=== PATIENT | male | born 1950 | race Two or more races ===

== ENCOUNTER → 2016-11-15 | Outpatient (REF) | payer MEDICARE, MEDICAID ==
[2016-11-15 12:54] LABS: BASO % 0.4 % (0.0-1.0); EOS # 0.2 K/mm3 (0.0-0.50); LARGE UNSTAINED CELL # 0.1 K/mm3 (0.0-0.4); LARGE UNSTAINED CELL % 1.6 % (0.0-4.0); LYMPH # 1.9 K/mm3 (1.5-4.5); LYMPH % 29.7 % (24.0-44.0); MEAN CORPUSCULAR HEMOGLOBIN 32.7 pg (27.0-33.0); MEAN CORPUSCULAR HGB CONC 34.3 g/dl (32.0-36.5); MEAN CORPUSCULAR VOLUME 95.5 fl (80.0-96.0); MONO # 0.5 K/mm3 (0.0-0.8); MONO % 7.7 % (0.0-5.0); NEUTROPHILS # 3.7 K/mm3 (1.8-7.7); NEUTROPHILS % 57.7 % (36.0-66.0); PLATELET COUNT, AUTOMATED 255 k/mm3 (150-450); WHITE BLOOD COUNT 6.5 K/mm3 (4.0-10.0)
[2016-11-15 12:55] LABS: ALBUMIN 3.7 GM/DL (3.2-5.2); ALBUMIN/GLOBULIN RATIO 1.09 (1.00-1.93); BILIRUBIN,TOTAL 0.4 MG/DL (0.2-1.0); CALCIUM LEVEL 8.3 MG/DL (8.8-10.2); CREATININE FOR GFR 1.31 MG/DL (0.70-1.30); GLOMERULAR FILTRATION RATE 58.3 (>49); POTASSIUM SERUM 4.1 MEQ/L (3.5-5.1); TOTAL PROTEIN 7.1 GM/DL (6.4-8.2)
== END ==
LOC: M SFHCADAM 08:05
PROVIDERS: ATTEND Family Medicine
DX: R61 Generalized hyperhidrosis (principal); E11.69 Type 2 diabetes mellitus with other specified complication

== ENCOUNTER → 2016-11-15 | Outpatient (CLI) | payer MEDICARE, MEDICAID ==
--- NOTE | 2016-11-15 10:13 | REP ---
Chest x-ray: Two views. History: Night sweats. Findings: There is a small linear density in the left base consistent with fibrosis or possibly discoid atelectasis. No infiltrate or mass lesion is seen. Heart is not enlarged. No hilar or mediastinal adenopathy is appreciated. There are degenerative changes in the thoracic spine. Impression: Mild linear fibrosis left base versus plate-like atelectasis. Otherwise no active disease. Signed by Justice Finnegan MD 11/15/2016 02:35 P
== END ==
LOC: M ADAMS 08:14
PROVIDERS: ATTEND Family Medicine
DX: R61 Generalized hyperhidrosis (principal)

== ENCOUNTER → 2016-11-29 | Outpatient (REF) | payer MEDICARE, MEDICAID ==
[2016-11-29 14:03] LABS: FREE T4 0.69 NG/DL (0.76-1.46)
== END ==
LOC: M SFHCADAM 08:09
PROVIDERS: ATTEND Family Medicine
DX: F32.9 Major depressive disorder, single episode, unspecified (principal)

== ENCOUNTER → 2016-12-21 | Outpatient (CLI) | payer MEDICARE, MEDICAID ==
--- NOTE | 2016-12-21 11:04 | REP ---
Renal ultrasound: The kidneys are normal size. The right kidney measures 12.8 x 5.9 x 7.0 cm. Left kidney measures 11.7 x 5.2 x 6.4 cm. There is no hydronephrosis on the right on the left. There is a 5.6 cm right renal upper pole cyst and a 4.1 cm right renal lower pole cyst. There are no calculi are masses on the right on the left. There are no left to cysts. Impression: Right renal cysts. Otherwise, negative renal ultrasound. Bladder ultrasound: The pre void bladder volume is 1370 ml millimeters. The postvoid bladder volume is 1139 ml. The postvoid residual is 83%. There is bladder wall trabeculation. There is a bladder diverticulum superiorly. Signed by Willian Gutierrez MD 12/21/2016 10:56 A
== END ==
LOC: M RAD 08:58
PROVIDERS: ATTEND Internal Medicine Nephrology
DX: N18.3 Chronic kidney disease, stage 3 (moderate) (principal)

== ENCOUNTER → 2016-12-24 | Outpatient (REF) | payer MEDICARE, MEDICAID ==
[2016-12-24 13:26] LABS: BASO % 0.4 % (0.0-1.0); EOS # 0.2 10^3/uL (0.0-0.50); EOS % 2.8 % (0.0-3.0); IMMATURE GRANULOCYTE % 0.8 % (0-0); LYMPH # 2.3 10^3/uL (1.5-4.5); MEAN CORPUSCULAR HEMOGLOBIN 31.5 pg (27.0-33.0); MEAN CORPUSCULAR HGB CONC 33.3 g/dl (32.0-36.5); MEAN CORPUSCULAR VOLUME 94.7 fl (80.0-96.0); MONO # 0.6 10^3/uL (0.0-0.8); MONO % 7.4 % (0.0-5.0); NEUTROPHILS # 4.4 10^3/uL (1.8-7.7); NEUTROPHILS % 58.6 % (36.0-66.0); PLATELET COUNT, AUTOMATED 211 10^3/uL (150-450); RED CELL DISTRIBUTION WIDTH 13.6 % (11.5-14.5); WHITE BLOOD COUNT 7.5 10^3/uL (4.0-10.0)
[2016-12-24 13:27] LABS: ALBUMIN 3.6 GM/DL (3.2-5.2); ALBUMIN/GLOBULIN RATIO 1.13 (1.00-1.93); BILIRUBIN,TOTAL 0.4 MG/DL (0.2-1.0); CALCIUM LEVEL 8.6 MG/DL (8.8-10.2); CREATININE FOR GFR 1.28 MG/DL (0.70-1.30); GLOMERULAR FILTRATION RATE 59.9 (>49); POTASSIUM SERUM 4.2 MEQ/L (3.5-5.1); TOTAL PROTEIN 6.8 GM/DL (6.4-8.2)
[2016-12-24 13:32] LABS: ADD MANUAL DIFFER NO; DIFF SLIDE NUMBER 218
== END ==
LOC: M LABDRWAD 12:14
PROVIDERS: ATTEND Psychiatry & Neurology Neurology
DX: R56.9 Unspecified convulsions (principal); E29.1 Testicular hypofunction; Z12.5 Encounter for screening for malignant neoplasm of prostate; R33.9 Retention of urine, unspecified; N32.3 Diverticulum of bladder; Z79.899 Other long term (current) drug therapy

== ENCOUNTER → 2016-12-25 | Outpatient (REF) | payer MEDICARE, MEDICAID | LOC: M LABSMT 07:46 | PROVIDERS: ATTEND Nurse Practitioner Women's Health | DX: Z12.5 Encounter for screening for malignant neoplasm of prostate (principal); E29.1 Testicular hypofunction | CPT/HCPCS: 84402; 84403; G0103 ==

== ENCOUNTER → 2017-01-11 | Outpatient (REF) | payer MEDICARE, MEDICAID | LOC: M SMT 13:07 | PROVIDERS: ATTEND Nurse Practitioner Women's Health | DX: R33.9 Retention of urine, unspecified (principal); E29.1 Testicular hypofunction; R97.20 Elevated prostate specific antigen [PSA] ==

== ENCOUNTER → 2017-01-14 | Outpatient (REF) | payer MEDICARE, MEDICAID ==
[2017-01-14 20:25] LABS: BASO % 0.3 % (0.0-1.0); EOS # 0.3 10^3/uL (0.0-0.50); EOS % 2.5 % (0.0-3.0); IMMATURE GRANULOCYTE % 0.8 % (0-0); LYMPH # 2.6 10^3/uL (1.5-4.5); LYMPH % 22.7 % (24.0-44.0); MEAN CORPUSCULAR HEMOGLOBIN 31.6 pg (27.0-33.0); MEAN CORPUSCULAR HGB CONC 32.6 g/dl (32.0-36.5); MONO # 0.9 10^3/uL (0.0-0.8); MONO % 7.4 % (0.0-5.0); NEUTROPHILS # 7.6 10^3/uL (1.8-7.7); NEUTROPHILS % 66.3 % (36.0-66.0); PLATELET COUNT, AUTOMATED 327 10^3/uL (150-450); RED CELL DISTRIBUTION WIDTH 12.7 % (11.5-14.5); WHITE BLOOD COUNT 11.4 10^3/uL (4.0-10.0)
== END ==
LOC: M SFHCADAM 09:31 → M LAB REF 09:31
PROVIDERS: ATTEND Family Medicine
DX: K62.5 Hemorrhage of anus and rectum (principal); F31.9 Bipolar disorder, unspecified; G31.84 Mild cognitive impairment of uncertain or unknown etiology
CPT/HCPCS: 85025; 90832; G0463

== ENCOUNTER → 2017-01-15 | Outpatient (REF) | payer MEDICARE, MEDICAID | LOC: M SMT 16:50 | PROVIDERS: ATTEND Urology | DX: R97.20 Elevated prostate specific antigen [PSA] (principal); R33.9 Retention of urine, unspecified ==

== ENCOUNTER → 2017-01-29 | Outpatient (REF) | payer MEDICARE, MEDICAID | LOC: M SMT 14:27 | PROVIDERS: ATTEND Urology | DX: N39.0 Urinary tract infection, site not specified (principal) ==

== ENCOUNTER → 2017-03-01 | Outpatient (REF) | payer MEDICARE, MEDICAID | LOC: M SMT 19:18 | PROVIDERS: ATTEND Urology | DX: R97.20 Elevated prostate specific antigen [PSA] (principal) ==

== ENCOUNTER → 2017-03-01 | Outpatient (REF) | payer MEDICARE, MEDICAID | LOC: M SFHCADAM 08:41 | PROVIDERS: ATTEND Family Medicine | DX: E11.69 Type 2 diabetes mellitus with other specified complication (principal) ==

== ENCOUNTER → 2017-03-15 | Outpatient (REF) | payer MEDICARE, MEDICAID ==
[2017-03-15 20:05] LABS: ESTIMATED AVERAGE GLUCOSE 163 MG/DL (60-110)
== END ==
LOC: M SFHCADAM 17:05
DX: E11.69 Type 2 diabetes mellitus with other specified complication (principal)
CPT/HCPCS: 83036

== ENCOUNTER 2017-04-19 20:51 | Emergency (ER) | payer MEDICARE, MEDICAID | END 2017-04-19 23:45 | disposition home or self-care (01) | LOC: M ED 20:51 | DX: M25.552 Pain in left hip (principal); X50.1XXA Overexertion from prolonged static or awkward postures, initial encounter; Y92.099 Unspecified place in other non-institutional residence as the place of occurrence of the external cause; Y93.9 Activity, unspecified; E11.9 Type 2 diabetes mellitus without complications; I10 Essential (primary) hypertension; E78.00 Pure hypercholesterolemia, unspecified; Z79.899 Other long term (current) drug therapy; Z88.8 Allergy status to other drugs, medicaments and biological substances; Z88.0 Allergy status to penicillin; Z88.1 Allergy status to other antibiotic agents | CPT/HCPCS: 73502 ==

== ENCOUNTER → 2017-05-21 | Outpatient (REF) | payer MEDICARE, MEDICAID ==
[2017-05-23 14:14] LABS: PSA TOTAL 2.2 ng/mL (0.0-4.0)
== END ==
LOC: M LABDRWAD 13:30
DX: R97.20 Elevated prostate specific antigen [PSA] (principal)
CPT/HCPCS: 84154

== ENCOUNTER → 2017-06-07 | Outpatient (REF) | payer MEDICARE, MEDICAID ==
[2017-06-07 19:47] LABS: ALBUMIN 3.7 GM/DL (3.2-5.2); ALKALINE PHOSPHATASE 84 U/L (45-117); ALT/SGPT 43 U/L (12-78); ANION GAP 5 MEQ/L (8-16); AST/SGOT 24 U/L (7-37); BILIRUBIN,TOTAL 0.4 MG/DL (0.2-1.0); BLOOD UREA NITROGEN 29 MG/DL (7-18); CARBON DIOXIDE LEVEL 32 MEQ/L (21-32); CHLORIDE LEVEL 102 MEQ/L (98-107); CREATININE FOR GFR 1.21 MG/DL (0.70-1.30); GLOMERULAR FILTRATION RATE > 60.0 (>49); GLUCOSE, FASTING 89 MG/DL (70-100); POTASSIUM SERUM 4.4 MEQ/L (3.5-5.1); SODIUM LEVEL 139 MEQ/L (136-145); TOTAL PROTEIN 7.4 GM/DL (6.4-8.2)
[2017-06-07 19:49] LABS: ESTIMATED AVERAGE GLUCOSE 146 MG/DL (60-110); HEMOGLOBIN A1c 6.7 %
[2017-06-07 20:08] LABS: MALB URINE SIEMENS 18.2 MG/L; MAU/CREAT RATIO 12.2 MCG/MG (0.0-30.0)
== END ==
LOC: M SFHCADAM 11:51
DX: E11.69 Type 2 diabetes mellitus with other specified complication (principal); R80.9 Proteinuria, unspecified
CPT/HCPCS: 80053

== ENCOUNTER → 2017-08-02 | Outpatient (REF) | payer MEDICARE, MEDICAID ==
[2017-08-02 13:40] LABS: ESTIMATED AVERAGE GLUCOSE 148 MG/DL (60-110); HEMOGLOBIN A1c 6.8 %
== END ==
LOC: M SFHCADAM 07:58
DX: E11.69 Type 2 diabetes mellitus with other specified complication (principal)
CPT/HCPCS: 83036

== ENCOUNTER → 2017-11-25 | Outpatient (REF) | payer MEDICARE, MEDICAID ==
[2017-11-25 13:46] LABS: APPEARANCE, URINE CLEAR (CLEAR); BACTERIA, URINE AUTO NEGATIVE (NEGATIVE); BILIRUBIN, URINE AUTO NEGATIVE (NEGATIVE); BLOOD, URINE BLOOD NEGATIVE (NEGATIVE); COLOR, URINE YELLOW (YELLOW); GLUCOSE, URINE (UA) AUTO NEGATIVE (NEGATIVE); KETONE, URINE AUTO NEGATIVE (NEGATIVE); LEUKOCYTE ESTERASE, URINE AUTO TRACE (NEGATIVE); MUCUS, URINE SMALL (NEGATIVE); NITRITE, URINE AUTO NEGATIVE (NEGATIVE); PROTEIN, URINE AUTO NEGATIVE (NEGATIVE); RBC, URINE AUTO 1 /HPF (0-3); SPECIFIC GRAVITY URINE AUTO 1.018 (1.002-1.035); SQUAMOUS EPITHELIAL CELL UR AU 0 /HPF (0-6); UROBILINOGEN, URINE AUTO 0.2 mg/dL (0.0-2.0); WBC, URINE AUTO 2 /HPF (0-3)
== END ==
LOC: M SMT 13:07
DX: R33.9 Retention of urine, unspecified (principal)
CPT/HCPCS: 81001

== ENCOUNTER → 2018-02-03 | Outpatient (REF) | payer MEDICARE, MEDICAID ==
[2018-02-03 20:11] LABS: ESTIMATED AVERAGE GLUCOSE 163 MG/DL (60-110); HEMOGLOBIN A1c 7.3 %
== END ==
LOC: M SFHCADAM 12:55
DX: E11.69 Type 2 diabetes mellitus with other specified complication (principal); Z23 Encounter for immunization
CPT/HCPCS: 83036

== ENCOUNTER 2018-02-16 03:18 | Inpatient (IN) | payer MEDICARE, MEDICAID ==
[2018-02-16 04:23] LABS: BASO % 0.4 % (0.0-1.0); EOS # 0.2 10^3/uL (0.0-0.50); EOS % 2.6 % (0.0-3.0); HEMATOCRIT 38.5 % (42.0-52.0); IMMATURE GRANULOCYTE % 0.9 % (0-3.0); LYMPH # 3.1 10^3/uL (1.5-4.5); MEAN CORPUSCULAR HEMOGLOBIN 31.6 pg (27.0-33.0); MEAN CORPUSCULAR HGB CONC 33.8 g/dl (32.0-36.5); MEAN CORPUSCULAR VOLUME 93.7 fl (80.0-96.0); MONO # 0.7 10^3/uL (0.0-0.8); MONO % 8.1 % (0.0-5.0); NEUTROPHILS # 4.4 10^3/uL (1.8-7.7); PLATELET COUNT, AUTOMATED 231 10^3/uL (150-450); RED BLOOD COUNT 4.11 10^6/uL (4.30-6.10); RED CELL DISTRIBUTION WIDTH 13.3 % (11.5-14.5); WHITE BLOOD COUNT 8.5 10^3/uL (4.0-10.0)
[2018-02-16 04:52] LABS: ALKALINE PHOSPHATASE 98 U/L (45-117); ALT/SGPT 46 U/L (12-78); AST/SGOT 32 U/L (7-37); BILIRUBIN,DIRECT < 0.1 MG/DL (0.0-0.2); BILIRUBIN,TOTAL 0.2 MG/DL (0.2-1.0); BLOOD UREA NITROGEN 21 MG/DL (7-18); CALCIUM LEVEL 8.4 MG/DL (8.8-10.2); CARBON DIOXIDE LEVEL 27 MEQ/L (21-32); CHLORIDE LEVEL 106 MEQ/L (98-107); CREATININE FOR GFR 1.28 MG/DL (0.70-1.30); GLOMERULAR FILTRATION RATE 59.5 (>49); GLUCOSE, FASTING 168 MG/DL (70-100); POTASSIUM SERUM 4.5 MEQ/L (3.5-5.1); SODIUM LEVEL 141 MEQ/L (136-145); TOTAL PROTEIN 6.8 GM/DL (6.4-8.2)
[2018-02-16 04:53] LABS: ALBUMIN 3.3 GM/DL (3.2-5.2); ALBUMIN/GLOBULIN RATIO 0.94 (1.00-1.93); ANION GAP 8 MEQ/L (8-16); LIPASE 267 U/L (73-393)
[2018-02-16] MEDS: MORPHINE 4 MG/ML 1ML VIAL/SYRINGE (J2270) IV ×2 (05:31→21:00)
[2018-02-16] MEDS: ONDANSETRON 4MG/2ML VIAL (J2405) IV ×2 (05:31→21:00)
[2018-02-16] MEDS: GASTROGRAFIN SOLUTION 30ML PO ×3 (05:31→06:05)
[2018-02-16] MEDS ORDERED: ISOVUE-370 76% 100ML VIAL (Q9967) As Ordered (07:08)
[2018-02-16 07:53] LABS: KETONE, URINE AUTO RFX NEGATIVE (NEGATIVE); LEUKOCYTE ESTERASE UR AUTO RFX NEGATIVE (NEGATIVE); MUCUS, URINE RFX SMALL (NEGATIVE); NITRITE, URINE AUTO RFX NEGATIVE (NEGATIVE); RBC, URINE AUTO RFX 22 /HPF (0-3); SPECIFIC GRAVITY UR AUTO RFX 1.018 (1.002-1.035); SQUAM EPITHELIAL CELL UR AURFX 1 /HPF (0-6); WBC, URINE AUTO RFX 1 /HPF (0-3)
[2018-02-16 08:39] LABS: CK-MB VALUE MASS < 1.0 NG/ML (<3.6); CPK CREATINE PHOSPHOKINASE 135 U/L (39-308); TROPONIN I < 0.02 NG/ML (< 0.10)
[2018-02-16] MEDS: PANTOPRAZOLE 40MG TAB (PROTONIX) PO (09:00)
[2018-02-16] MEDS: LOSARTAN 50 MG TAB PO (09:00)
[2018-02-16] MEDS ORDERED: ACETAMINOPHEN 500 MG TAB PO (15:45)
[2018-02-16] MEDS: GABAPENTIN 300 MG CAP PO ×2 (16:00→21:11)
[2018-02-16 17:08] LABS: BEDSIDE GLUCOSE 117 MG/DL (80-115)
[2018-02-16] MEDS: HumaLOG INSULIN (NovoLOG) PER UNIT SC ×2 (17:30→21:00)
[2018-02-16] MEDS ORDERED: GLUCAGON FOR INJ 1 MG VIAL (J1610) SC (17:30)
[2018-02-16] MEDS ORDERED: GLUCOSE 4 GM CHEW TABLET PO (17:30)
[2018-02-16] MEDS ORDERED: DEXTROSE 50% 50 ML SYRINGE IV (17:30)
[2018-02-16 17:58] LABS: ERYTHROCYTE SEDIMENTATION RATE 26 mm/hr (0-20)
[2018-02-16] MEDS: NS 1,000 ML IV (18:41)
[2018-02-16 20:02] LABS: BEDSIDE GLUCOSE 154 MG/DL (80-115)
[2018-02-16] MEDS: TAMSULOSIN 0.4 MG CAP PO (21:00)
[2018-02-16] MEDS: QUEtiapine FUMARATE 100 MG TAB PO (21:00)
[2018-02-16] MEDS: DONEPEZIL 5 MG TAB PO (21:00)
[2018-02-16] MEDS: OXcarbazepine 300 MG TAB PO (21:00)
[2018-02-16] MEDS: SIMVASTATIN 20 MG TAB PO (21:11)
[2018-02-16] MEDS: FLUoxetine 20 MG CAP PO (21:14)
[2018-02-16 21:32] LABS: APPEARANCE, URINE CLEAR (CLEAR); BACTERIA, URINE AUTO NEGATIVE (NEGATIVE); BILIRUBIN, URINE AUTO NEGATIVE (NEGATIVE); BLOOD, URINE BLOOD 1+ (NEGATIVE); COLOR, URINE YELLOW (YELLOW); GLUCOSE, URINE (UA) AUTO NEGATIVE (NEGATIVE); KETONE, URINE AUTO NEGATIVE (NEGATIVE); LEUKOCYTE ESTERASE, URINE AUTO NEGATIVE (NEGATIVE); MUCUS, URINE SMALL (NEGATIVE); NITRITE, URINE AUTO NEGATIVE (NEGATIVE); PROTEIN, URINE AUTO NEGATIVE (NEGATIVE); RBC, URINE AUTO 4 /HPF (0-3); SPECIFIC GRAVITY URINE AUTO 1.033 (1.002-1.035); SQUAMOUS EPITHELIAL CELL UR AU 0 /HPF (0-6); UROBILINOGEN, URINE AUTO 0.2 mg/dL (0.0-2.0); WBC, URINE AUTO 1 /HPF (0-3)
[2018-02-17 05:23] LABS: HEMATOCRIT 39.8 % (42.0-52.0); HEMOGLOBIN 13.2 g/dl (13.5-17.5); MEAN CORPUSCULAR HEMOGLOBIN 30.8 pg (27.0-33.0); MEAN CORPUSCULAR HGB CONC 33.2 g/dl (32.0-36.5); PLATELET COUNT, AUTOMATED 207 10^3/uL (150-450); RED BLOOD COUNT 4.28 10^6/uL (4.30-6.10); RED CELL DISTRIBUTION WIDTH 13.2 % (11.5-14.5); WHITE BLOOD COUNT 8.4 10^3/uL (4.0-10.0)
[2018-02-17 05:44] LABS: ALBUMIN 3.6 GM/DL (3.2-5.2); ALBUMIN/GLOBULIN RATIO 1.03 (1.00-1.93); ALKALINE PHOSPHATASE 97 U/L (45-117); ALT/SGPT 35 U/L (12-78); ANION GAP 7 MEQ/L (8-16); AST/SGOT 20 U/L (7-37); BILIRUBIN,TOTAL 0.4 MG/DL (0.2-1.0); BLOOD UREA NITROGEN 20 MG/DL (7-18); CALCIUM LEVEL 8.7 MG/DL (8.8-10.2); CARBON DIOXIDE LEVEL 29 MEQ/L (21-32); CHLORIDE LEVEL 102 MEQ/L (98-107); CREATININE FOR GFR 1.11 MG/DL (0.70-1.30); FERRITIN 281 NG/ML (26-388); GLOMERULAR FILTRATION RATE > 60.0 (>49); GLUCOSE, FASTING 142 MG/DL (70-100); IRON (FE) 62 UG/DL (65-175); PERCENT SATURATION 23.3 % (19.7-50.0); POTASSIUM SERUM 4.2 MEQ/L (3.5-5.1); SODIUM LEVEL 138 MEQ/L (136-145); TOTAL IRON BINDING CAPACITY 266 UG/DL (250-450); TOTAL PROTEIN 7.1 GM/DL (6.4-8.2)
[2018-02-17] MEDS: ONDANSETRON 4MG/2ML VIAL (J2405) IV (08:32)
[2018-02-17] MEDS: HumaLOG INSULIN (NovoLOG) PER UNIT SC ×2 (08:32→12:09)
[2018-02-17] MEDS: GABAPENTIN 300 MG CAP PO ×2 (08:33→15:44)
[2018-02-17] MEDS: PANTOPRAZOLE 40MG TAB (PROTONIX) PO (08:33)
[2018-02-17] MEDS: OXcarbazepine 300 MG TAB PO (08:33)
[2018-02-17] MEDS: ENOXAPARIN 40 MG/0.4 ML SYRINGE (J1650) SC (08:33)
[2018-02-17] MEDS: LOSARTAN 50 MG TAB PO (08:33)
[2018-02-17] MEDS: FLUoxetine 20 MG CAP PO (08:34)
[2018-02-17] MEDS ORDERED: FLUoxetine 20 MG CAP PO (09:00)
[2018-02-17 11:42] LABS: BEDSIDE GLUCOSE 192 MG/DL (80-115)
[2018-02-17 11:53] LABS: VITAMIN B12 LEVEL 635 PG/ML (247-911)
[2018-02-19 14:16] LABS: OXCARBAZEPINE 17 ug/mL (10-35)
== END 2018-02-17 16:02 | disposition home or self-care (01) | DRG 392 ==
LOC: M ED 03:18 → M ED INP 15:37 → M PCU 18:34
DX: A08.0 Rotaviral enteritis (principal); E11.9 Type 2 diabetes mellitus without complications; F41.9 Anxiety disorder, unspecified; F43.10 Post-traumatic stress disorder, unspecified; J45.909 Unspecified asthma, uncomplicated; G40.909 Epilepsy, unspecified, not intractable, without status epilepticus; Z88.0 Allergy status to penicillin; Z88.2 Allergy status to sulfonamides; Z88.8 Allergy status to other drugs, medicaments and biological substances; Z90.79 Acquired absence of other genital organ(s); Z79.899 Other long term (current) drug therapy; R55 Syncope and collapse; K80.20 Calculus of gallbladder without cholecystitis without obstruction; G47.33 Obstructive sleep apnea (adult) (pediatric); I10 Essential (primary) hypertension

== ENCOUNTER → 2018-05-06 | Outpatient (REF) | payer MEDICARE, OTHER ==
[~2018-05-06] MED LIST: AK-T0.3S; ALBU83IN INH; ATIV1TAB10; ATIV1TAB10 PO; CLIN1LOT; DONEPEZIL; DONETAB6 PO; FISH7.5C PO; FLOM0.4C39 PO; FLON1SPR NARES; FLUO20CA19; FLUO20CA8 PO; FLUO40CA; FLUO40CA PO; GABA-843; GABA-843 PO; KETO2SH; LORA-243; LOSA50TA88; LOSA50TA88 PO; MECL-86 PO; MESA50SU PR; NEOM1SUS15 OU; NITR4TASL SL; NIZO2SHA TOP; OMEP40CA2; OMEP40CA2 PO; OXCA300T14; OXCA300T14 PO; PRAM0.126; PREDOPD; PROAAER10 INH; QUET1TAB8; QUET1TAB8 PO; SIMV20TA2; SYMB16INH INH; TRAZ1TAB14; TRAZ1TAB14 PO; TRUL10IN; TRUL10IN SC; TUMS500C PO; TYLE325T5 PO; Tamsulosin; VENTAER INH; XALA0.007 OU; ZOCO20TA PO
[2018-05-06 20:17] LABS: ALBUMIN 3.7 GM/DL (3.2-5.2); ALT/SGPT 35 U/L (12-78); BILIRUBIN,TOTAL 0.4 MG/DL (0.2-1.0); BLOOD UREA NITROGEN 13 MG/DL (7-18); CALCIUM LEVEL 8.6 MG/DL (8.8-10.2); CARBON DIOXIDE LEVEL 24 MEQ/L (21-32); CHLORIDE LEVEL 99 MEQ/L (98-107); CREATININE FOR GFR 1.13 MG/DL (0.70-1.30); GLOMERULAR FILTRATION RATE > 60.0 (>49); GLUCOSE, FASTING 138 MG/DL (70-100); POTASSIUM SERUM 3.9 MEQ/L (3.5-5.1); SODIUM LEVEL 133 MEQ/L (136-145); TOTAL PROTEIN 7.6 GM/DL (6.4-8.2)
[2018-05-06 20:57] LABS: HEMOGLOBIN A1c 8.3 %
[2018-05-08 15:05] LABS: PSA TOTAL 2.5 ng/mL (0.0-4.0)
== END ==
LOC: M SFHCADAM 11:42
PROVIDERS: ATTEND Family Medicine
DX: E11.69 Type 2 diabetes mellitus with other specified complication (principal); R97.20 Elevated prostate specific antigen [PSA]

== ENCOUNTER 2018-05-08 11:33 | Day surgery (SDC) | payer MEDICARE, MEDICAID ==
[~2018-05-08] VITALS: Ht 188 cm; Wt 135.6 kg
[~2018-05-08 11:33] MED LIST changes: +NS 1,000 ML IV SCH
[2018-05-08] MEDS ORDERED: PROPOFOL 200 MG/20 ML VIAL As Ordered ONE ×2 (12:55→12:56)
[2018-05-08] MEDS ORDERED: LIDOCAINE 2% INJ 100 MG/5 ML SDV (FOR ANES.) As Ordered ONE (12:56)
--- NOTE | 2018-05-08 13:44 | ROOR ---
Patient Name: Noah Huerta Procedure Date: 05/08/2018 1:22 PM Date of : 1950 Age: 68 Room: [facility] Gender: Male Note Status: Finalized Procedure: Upper GI endoscopy Indications: Surveillance for malignancy due to personal history of Adan's esophagus Providers: Cesario LAM MD Referring MD: Tiffanie Cohen DO Requesting Provider: Medicines: Monitored Anesthesia Care Complications: No immediate complications. Procedure: Pre-Anesthesia Assessment: - The heart rate, respiratory rate, oxygen saturations, blood pressure, adequacy of pulmonary ventilation, and response to care were monitored throughout the procedure. The Endoscope was introduced through the mouth, and advanced to the second part of duodenum. The upper GI endoscopy was accomplished without difficulty. The patient tolerated the procedure well. Findings: The Z-line was variable and was found 39 cm from the incisors. This was biopsied with a cold forceps for histology. The exam of the esophagus was otherwise normal. Patchy mild inflammation characterized by erythema was found in the gastric antrum. Biopsies were taken with a cold forceps for histology. Multiple small semi-sessile polyps were found in the gastric body. Biopsies were taken with a cold forceps for histology. The examined duodenum was normal. Impression: - Z-line variable with a small nodularity, 39 cm from the incisors. Biopsied. - Probable Atrophic gastritis (or possible mild GAVE). Biopsied. - Multiple gastric polyps/fundic gland polyps. Multiple polyps Biopsied. - Normal examined duodenum. Recommendation: - Await pathology results. - Observe patient's clinical course. - Repeat upper endoscopy for surveillance based on pathology results. - Continue present medications. - Telephone endoscopist for pathology results in 2 weeks. Cesario Lam MD Cesario LAM MD 05/08/2018 1:43:38 PM This report has been signed electronically. Number of Addenda: 0 Note Initiated On: 05/08/2018 1:22 PM Estimated Blood Loss: Estimated blood loss: none.
--- NOTE | 2018-05-08 14:07 | ROOR ---
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 Procedure: Pre-Anesthesia Assessment: - The heart rate, respiratory rate, oxygen saturations, blood pressure, adequacy of pulmonary ventilation, and response to care were monitored throughout the procedure. The Colonoscope was introduced through the anus and advanced to 10 cm into the ileum. The colonoscopy was performed without difficulty. The patient tolerated the procedure well. The quality of the bowel preparation was good. Findings: The perianal and digital rectal examinations were normal. A 8 mm polyp was found in the hepatic flexure. The polyp was semi-sessile. The polyp was removed with a cold snare. Resection and retrieval were complete. Mild sigmoid diverticulosis and moderate internal hemorrhoids. The exam was otherwise without abnormality on direct and retroflexion views. The terminal ileum appeared normal. Impression: - One 8 mm polyp at the hepatic flexure, removed with a cold snare. Resected and retrieved. - Mild sigmoid diverticulosis and moderate internal hemorrhoids. - The colon examination was otherwise normal on direct and retroflexion views. - The examined portion of the ileum was normal. (- I see no evidence of any colitis or proctitis today.) Recommendation: - Repeat colonoscopy in 5 years for surveillance. Cesario Lam MD Cesario LAM MD 05/08/2018 2:06:55 PM This report has been signed electronically. Number of Addenda: 0 Note Initiated On: 05/08/2018 1:24 PM Estimated Blood Loss: Estimated blood loss: none.
[2018-05-08 14:33] VITALS: BP 143/89
== END 2018-05-08 14:48 | disposition home or self-care (01) ==
LOC: M OPP 11:33
PROVIDERS: ATTEND Internal Medicine Gastroenterology
DX: D12.3 Benign neoplasm of transverse colon (principal); K57.30 Diverticulosis of large intestine without perforation or abscess without bleeding; K64.8 Other hemorrhoids; K22.70 Barrett's esophagus without dysplasia; K22.8 Other specified diseases of esophagus; K29.40 Chronic atrophic gastritis without bleeding; K31.7 Polyp of stomach and duodenum; Z86.010 Personal history of colon polyps

== ENCOUNTER → 2018-06-06 | Outpatient (CLI) | payer MEDICARE, MEDICAID ==
[~2018-06-06] MED LIST changes: -KETO2SH; +KETO2SHA9; +NEOM1SUS14 OU; -NEOM1SUS15 OU; -NS 1,000 ML IV SCH
--- NOTE | 2018-06-06 15:47 | REP ---
Left knee five views History: Acute pain There is no acute fracture or dislocation. There is mild narrowing of the medial knee joint space and lateral femoral joint space. Osteophytes are present on the femur, tibia and patella. Impression: Degenerative change as described above. Electronically Signed by Cyrus Simmons MD 06/06/2018 03:39 P
== END ==
LOC: M ADAMS 14:13
PROVIDERS: ATTEND Family Medicine
DX: M17.12 Unilateral primary osteoarthritis, left knee (principal); M25.762 Osteophyte, left knee; M25.562 Pain in left knee
CPT/HCPCS: 73564; G0463

== ENCOUNTER 2018-06-20 08:56 | Day surgery (SDC) | payer MEDICARE, MEDICAID ==
[~2018-06-20] VITALS: Ht 188 cm; Wt 127.0 kg
[~2018-06-20 08:56] MED LIST changes: +GLYCOPYRROLATE INJ 0.2 MG/ML 2 ML VIAL As Ordered ONE; +KETOROLAC 60 MG/2 ML VIAL (J1885) As Ordered ONE; +LIDOCAINE 2% INJ 100 MG/5 ML SDV (FOR ANES.) As Ordered ONE; +MIDAZOLAM INJ 2 MG/2 ML VIAL (J2250) As Ordered ONE; +NEOSTIGMINE 10 MG/10 ML VIAL (J2710) As Ordered ONE; +ONDANSETRON 4MG/2ML VIAL (J2405) As Ordered ONE; +PROPOFOL 200 MG/20 ML VIAL As Ordered ONE; +ROCURONIUM BROMIDE 50 MG/5 ML VIAL As Ordered ONE; +dexameTHASONE 4 MG/ML 1ML VIAL (J1100) As Ordered ONE; +fentaNYL 100 MCG/2 ML INJECTION (J3010) As Ordered ONE
[2018-06-20] MEDS ORDERED: CLINDAMYCIN 600 MG/50 ML PREMIX BAG As Ordered ONE (10:05)
[2018-06-20] MEDS ORDERED: CLINDAMYCIN 600 MG in APPROPRIATE DILUENT 1 EA IV ONE (10:30)
[2018-06-20] MEDS ORDERED: BUPIVACAINE/EPIN 0.25% 30 ML VIAL As Ordered ONE (11:40)
[2018-06-20] MEDS ORDERED: oxyCODONE 5MG TAB PO PRN (14:45)
[2018-06-20] MEDS ORDERED: LR 1,000 ML IV SCH (14:45)
[2018-06-20] MEDS ORDERED: NORCO 5/325MG TABLET (BULK FOR ED) PO PRN (14:45)
[2018-06-20] MEDS ORDERED: ONDANSETRON 4MG/2ML VIAL (J2405) IV PRN (14:45)
[2018-06-20] MEDS: fentaNYL 100 MCG/2 ML INJECTION (J3010) IV PRN ×3 (15:20→15:30)
[2018-06-20 15:54] VITALS: BP 155/79
--- NOTE | 2018-06-20 18:31 | RO ---
DATE OF PROCEDURE: 06/20/2018 PREOPERATIVE DIAGNOSIS: Right inguinal hernia. POSTOPERATIVE DIAGNOSIS: Recurrent right inguinal hernia. PROCEDURE: Robotic repair of a recurrent right inguinal hernia. SURGEON: Dr. Willian West CARBONATION TESTER: Radha Bishop ANESTHESIA: General. ESTIMATED BLOOD LOSS: 5 mL. COMPLICATIONS: None. INDICATION FOR PROCEDURE: The patient is a 68-year-old male who presents with right groin pain and a bulge. He was found to have a right inguinal hernia. Recommendation was to proceed with robotic repair. Risks and benefits of the procedure not limited to but including bleeding, infection, hernia formation, hernia recurrence, damage to surrounding structures, and need for further surgery were discussed in detail with the patient. Informed consent was obtained and procedure was planned. DESCRIPTION OF PROCEDURE: The patient was brought back to operating room seven after sufficient sedation, a Mooney catheter was placed. Next, a time-out was done to confirm proper patient, proper procedure. Next, a stab incision was made in the left lower quadrant, Veress needle was inserted and the abdomen was insufflated to 15 mmHg. An 8 mm incision was then made supraumbilically and an 8 mm Optiview port was used to gain access to the abdomen. The Veress needle site was examined. No sites of any injury. Two more 8 mm robotic ports were placed in left and right midabdomen in line with the umbilical port. The robot was then connected to the ports and targeted to the pelvis. Next, the abdomen was entered with the camera. There were multiple adhesions in the right lower quadrant. These were gently taken down using the robot. In the right groin, there was mesh identified with a loop of colon adhered to it. The colon was gently taken down. Once that was completed, it revealed an indirect defect inferior to the mesh, containing a large amount of fat. This was all carefully reduced. It was right on top of the external iliac artery and vein. I carefully dissected free from those structures. Once the sac was completely reduced, the hernia was bordered by the iliac vessels, making it very difficult to close. The mesh had also scarred in all of the tissues medially making it next to impossible to reach the pubic symphysis to anchor the mesh there. After consulting with Dr. Lu, I decided to take a mesh plug, placed it inside of the hernia defect, then using a #2-0 V-Loc, I reapproximated the anterior tissues of the defect through a couple of leaflets of the mesh plug and to the posterior fascia just lateral to the iliac vessels. I continue to run this from medial to lateral, closing the defect, then incorporated one of the large cord lipomas within it to help reinforce the repair. Once that was completed, the abdomen was desufflated. Skin incisions were closed with #4-0 Vicryl subcuticular sutures. The abdomen was cleaned and dried. Steri-Strips, 4 x 4, and tape were applied thus ending procedure.
== END 2018-06-20 16:55 | disposition home or self-care (01) ==
LOC: M SDC 08:56
PROVIDERS: ATTEND Surgery
DX: K40.91 Unilateral inguinal hernia, without obstruction or gangrene, recurrent (principal); I10 Essential (primary) hypertension; E11.9 Type 2 diabetes mellitus without complications; M10.9 Gout, unspecified; G47.30 Sleep apnea, unspecified; Z91.041 Radiographic dye allergy status; Z88.1 Allergy status to other antibiotic agents; F41.9 Anxiety disorder, unspecified; F32.9 Major depressive disorder, single episode, unspecified; J45.909 Unspecified asthma, uncomplicated; Z79.899 Other long term (current) drug therapy; N40.0 Benign prostatic hyperplasia without lower urinary tract symptoms; Z79.51 Long term (current) use of inhaled steroids
CPT/HCPCS: 49650; C1781; J1100; J1885; J2250; J2405; J2710; J3010

== ENCOUNTER → 2018-07-15 | Outpatient (REF) | payer MEDICARE, MEDICAID ==
[~2018-07-15] MED LIST changes: -GLYCOPYRROLATE INJ 0.2 MG/ML 2 ML VIAL As Ordered ONE; -KETOROLAC 60 MG/2 ML VIAL (J1885) As Ordered ONE; -LIDOCAINE 2% INJ 100 MG/5 ML SDV (FOR ANES.) As Ordered ONE; -MIDAZOLAM INJ 2 MG/2 ML VIAL (J2250) As Ordered ONE; -NEOSTIGMINE 10 MG/10 ML VIAL (J2710) As Ordered ONE; -ONDANSETRON 4MG/2ML VIAL (J2405) As Ordered ONE; -PROPOFOL 200 MG/20 ML VIAL As Ordered ONE; -ROCURONIUM BROMIDE 50 MG/5 ML VIAL As Ordered ONE; -dexameTHASONE 4 MG/ML 1ML VIAL (J1100) As Ordered ONE; -fentaNYL 100 MCG/2 ML INJECTION (J3010) As Ordered ONE
[2018-07-15 14:06] LABS: BASO % 0.3 % (0.0-1.0); EOS # 0.2 10^3/uL (0.0-0.50); EOS % 3.2 % (0.0-3.0); HEMOGLOBIN 12.8 g/dl (13.5-17.5); LYMPH % 31.6 % (24.0-44.0); MEAN CORPUSCULAR HEMOGLOBIN 31.8 pg (27.0-33.0); MEAN CORPUSCULAR HGB CONC 33.7 g/dl (32.0-36.5); MEAN CORPUSCULAR VOLUME 94.3 fl (80.0-96.0); MONO # 0.5 10^3/uL (0.0-0.8); MONO % 7.5 % (0.0-5.0); NEUTROPHILS # 3.6 10^3/uL (1.8-7.7); NEUTROPHILS % 56.4 % (36.0-66.0); PLATELET COUNT, AUTOMATED 237 10^3/uL (150-450); RED BLOOD COUNT 4.03 10^6/uL (4.30-6.10); WHITE BLOOD COUNT 6.3 10^3/uL (4.0-10.0)
[2018-07-15 14:15] LABS: ALBUMIN 3.2 GM/DL (3.2-5.2); ALT/SGPT 45 U/L (12-78); BILIRUBIN,TOTAL 0.3 MG/DL (0.2-1.0); BLOOD UREA NITROGEN 17 MG/DL (7-18); CALCIUM LEVEL 8.5 MG/DL (8.8-10.2); CARBON DIOXIDE LEVEL 27 MEQ/L (21-32); CHLORIDE LEVEL 108 MEQ/L (98-107); CREATININE FOR GFR 1.15 MG/DL (0.70-1.30); GLOMERULAR FILTRATION RATE > 60.0 (>49); GLUCOSE, FASTING 143 MG/DL (70-100); POTASSIUM SERUM 4.5 MEQ/L (3.5-5.1); SODIUM LEVEL 139 MEQ/L (136-145); TOTAL PROTEIN 7.2 GM/DL (6.4-8.2)
== END ==
LOC: M LABNEURO 10:47
PROVIDERS: ATTEND Psychiatry & Neurology Neurology
DX: G40.89 Other seizures (principal)

== ENCOUNTER → 2018-08-13 | Outpatient (REF) | payer MEDICARE, MEDICAID ==
[2018-08-13 11:52] LABS: HEMOGLOBIN A1c 7.8 %
== END ==
LOC: M SFHCPLAZ 08:41
PROVIDERS: ATTEND Family Medicine
DX: E11.69 Type 2 diabetes mellitus with other specified complication (principal)

== ENCOUNTER → 2018-09-05 | Outpatient (CLI) | payer MEDICARE, MEDICAID ==
[2018-09-05 14:35] LABS: BASO % 0.2 % (0.0-1.0); EOS % 0.3 % (0.0-3.0); HEMATOCRIT 38.9 % (42.0-52.0); HEMOGLOBIN 12.8 g/dl (13.5-17.5); LYMPH # 1.5 10^3/uL (1.5-4.5); LYMPH % 13.4 % (24.0-44.0); MEAN CORPUSCULAR HEMOGLOBIN 30.8 pg (27.0-33.0); MEAN CORPUSCULAR HGB CONC 32.9 g/dl (32.0-36.5); MEAN CORPUSCULAR VOLUME 93.7 fl (80.0-96.0); MONO # 0.8 10^3/uL (0.0-0.8); MONO % 7.6 % (0.0-5.0); NEUTROPHILS # 8.6 10^3/uL (1.8-7.7); PLATELET COUNT, AUTOMATED 248 10^3/uL (150-450); RED BLOOD COUNT 4.15 10^6/uL (4.30-6.10)
[2018-09-05 15:01] LABS: C REACTIVE PROTEIN QUANTITATIV 0.61 MG/DL (0.00-0.30); CALCIUM LEVEL 8.3 MG/DL (8.8-10.2); CREATININE FOR GFR 1.33 MG/DL (0.70-1.30); GLOMERULAR FILTRATION RATE 56.9 (>49); POTASSIUM SERUM 4.3 MEQ/L (3.5-5.1); URIC ACID 4.4 MG/DL (3.5-7.2)
[2018-09-05 15:09] LABS: ERYTHROCYTE SEDIMENTATION RATE 43 mm/hr (0-20)
--- NOTE | 2018-09-05 15:16 | REP ---
HISTORY: Pain. No trauma. Pain particular to digits 1 through 3. COMPARISON: No priors. Degenerative changes seen throughout the intradigital joints. There is no acute fracture, dislocation or subluxation. IMPRESSION: Chronic changes. Electronically Signed by Marco Kirk DO 09/05/2018 03:56 P
== END ==
LOC: M LAB 14:10
PROVIDERS: ATTEND Family Medicine
DX: M19.042 Primary osteoarthritis, left hand (principal); M79.642 Pain in left hand; N18.3 Chronic kidney disease, stage 3 (moderate); M79.89 Other specified soft tissue disorders
CPT/HCPCS: 36415; 73130; 80048; 84550; 85025; 85652; 86140; G0463

== ENCOUNTER → 2018-09-22 | Outpatient (REF) | payer MEDICARE, MEDICAID ==
[2018-09-22 15:56] LABS: BASO % 0.5 % (0.0-1.0); EOS # 0.2 10^3/uL (0.0-0.50); EOS % 2.9 % (0.0-3.0); HEMATOCRIT 40.6 % (42.0-52.0); HEMOGLOBIN 13.4 g/dl (13.5-17.5); LYMPH # 2.8 10^3/uL (1.5-4.5); LYMPH % 36.6 % (24.0-44.0); MEAN CORPUSCULAR HEMOGLOBIN 31.6 pg (27.0-33.0); MEAN CORPUSCULAR VOLUME 95.8 fl (80.0-96.0); MONO # 0.7 10^3/uL (0.0-0.8); MONO % 8.9 % (0.0-5.0); NEUTROPHILS # 3.8 10^3/uL (1.8-7.7); NEUTROPHILS % 50.4 % (36.0-66.0); PLATELET COUNT, AUTOMATED 223 10^3/uL (150-450); RED BLOOD COUNT 4.24 10^6/uL (4.30-6.10); WHITE BLOOD COUNT 7.5 10^3/uL (4.0-10.0)
[2018-09-22 16:09] LABS: BLOOD UREA NITROGEN 21 MG/DL (7-18); CALCIUM LEVEL 8.3 MG/DL (8.8-10.2); CARBON DIOXIDE LEVEL 29 MEQ/L (21-32); CHLORIDE LEVEL 104 MEQ/L (98-107); CREATININE FOR GFR 1.24 MG/DL (0.70-1.30); FREE T4 0.66 NG/DL (0.76-1.46); GLOMERULAR FILTRATION RATE > 60.0 (>49); GLUCOSE, FASTING 133 MG/DL (70-100); MAGNESIUM LEVEL 1.9 MG/DL (1.8-2.4); SODIUM LEVEL 139 MEQ/L (136-145); TOTAL 25(OH) VITAMIN D 15.4 NG/ML (30.0-100.0); VITAMIN B12 LEVEL 602 PG/ML (247-911)
== END ==
LOC: M SFHCPLAZ 14:13
PROVIDERS: ATTEND Family Medicine
DX: R53.82 Chronic fatigue, unspecified (principal)

== ENCOUNTER → 2018-09-22 | Outpatient (CLI) | payer MEDICARE, MEDICAID ==
[~2018-09-22] MED LIST changes: +ALLE180T33 PO; +BREO1INH INH; +DONE10TA90 PO; +EYEDRO5 OU; +FISH1000 PO; +FLAX1300 PO; +GLIP5TAB8 PO; +IBUP1TAB6 PO; +LORA0.5T11 PO; +MIRA0.12 PO; +OYST1TAB PO; +TRUL0.5I SC; +VITA500045 PO; +VITAD1000T PO
--- NOTE | 2018-09-22 20:56 | REP ---
Clinical: Bilateral hip pain. Technique: Frontal view of the pelvis with neutral and frog lateral views of the right and left hip. Findings: Mild arthritic changes include increased sclerosis to the acetabular roof with subtle marginal spurring and minimal joint space narrowing. No acute fracture or dislocation. Evidence for prior ventral hernia repair. Impression: Mild bilateral degenerative changes to the hips. Electronically Signed by Dean Huber MD 09/22/2018 08:47 P
== END ==
LOC: M LAB 14:58 → M RAD 14:58
PROVIDERS: ATTEND Family Medicine
DX: M16.0 Bilateral primary osteoarthritis of hip (principal); M25.551 Pain in right hip; M25.552 Pain in left hip; R53.82 Chronic fatigue, unspecified

== ENCOUNTER → 2018-09-24 | Outpatient (REF) | payer MEDICARE, MEDICAID ==
[~2018-09-24] MED LIST changes: -ALLE180T33 PO; -BREO1INH INH; -DONE10TA90 PO; -EYEDRO5 OU; -FISH1000 PO; -FLAX1300 PO; -GLIP5TAB8 PO; -IBUP1TAB6 PO; -LORA0.5T11 PO; -MIRA0.12 PO; -OYST1TAB PO; -TRUL0.5I SC; -VITA500045 PO; -VITAD1000T PO
== END ==
LOC: M SFHCPLAZ 09:40
PROVIDERS: ATTEND Dermatology
DX: D17.1 Benign lipomatous neoplasm of skin and subcutaneous tissue of trunk (principal); L91.8 Other hypertrophic disorders of the skin

== ENCOUNTER → 2018-10-03 | Outpatient (CLI) | payer MEDICARE, MEDICAID ==
--- NOTE | 2018-10-06 06:03 | REP ---
Clinical: Right inguinal repair with pain. Technique: Real time miranda scale ultrasound examination using curved array transducer and linear high frequency transducer. Findings: Evaluation of the right groin and inguinal region demonstrates no fluid collection, mass, or hernia. The left groin was evaluated for comparison and appears normal as well. Impression: Normal appearance of the bilateral groin/inguinal region. Electronically Signed by Dean Huber MD 10/06/2018 05:55 A
== END ==
LOC: M RAD 17:00
PROVIDERS: ATTEND Nurse Practitioner Family
DX: R10.31 Right lower quadrant pain (principal)

== ENCOUNTER 2018-10-17 17:09 | Inpatient (IN) | payer MEDICARE, MEDICAID ==
[~2018-10-17] VITALS: Ht 182.9 cm; Wt 125.9 kg
[2018-10-17] MEDS ORDERED: FISH1000 PO (17:25)
[2018-10-17 18:22] LABS: BASO % 0.3 % (0.0-1.0); EOS # 0.3 10^3/uL (0.0-0.50); EOS % 2.9 % (0.0-3.0); HEMATOCRIT 36.6 % (42.0-52.0); HEMOGLOBIN 12.4 g/dl (13.5-17.5); LYMPH # 2.8 10^3/uL (1.5-4.5); LYMPH % 28.4 % (24.0-44.0); MEAN CORPUSCULAR HEMOGLOBIN 30.6 pg (27.0-33.0); MEAN CORPUSCULAR HGB CONC 33.9 g/dl (32.0-36.5); MEAN CORPUSCULAR VOLUME 90.4 fl (80.0-96.0); MONO # 0.8 10^3/uL (0.0-0.8); MONO % 8.7 % (0.0-5.0); NEUTROPHILS # 5.7 10^3/uL (1.8-7.7); PLATELET COUNT, AUTOMATED 234 10^3/uL (150-450); RED BLOOD COUNT 4.05 10^6/uL (4.30-6.10); WHITE BLOOD COUNT 9.7 10^3/uL (4.0-10.0)
[2018-10-17] MEDS ORDERED: ASPIRIN 81 MG CHEW TABLET PO ONE (18:30)
[2018-10-17 18:31] LABS: INR 1.04; PROTHROMBIN TIME 13.3 SECONDS (11.8-14.0)
[2018-10-17] MEDS: NITROGLYCERIN 0.4 MG SUBL TABLET SL PRN ×3 (18:33→18:43)
[2018-10-17 18:34] LABS: D-DIMER QUANT 644.44 ng/ml (<500)
[2018-10-17] MEDS ORDERED: DONEPEZIL 5 MG TAB PO ONE (18:45)
[2018-10-17] MEDS ORDERED: OXcarbazepine 300 MG TAB PO ONE (18:45)
[2018-10-17] MEDS ORDERED: GABAPENTIN 300 MG CAP PO ONE (18:45)
[2018-10-17 18:53] LABS: ALBUMIN 3.3 GM/DL (3.2-5.2); ALT/SGPT 41 U/L (12-78); BILIRUBIN,DIRECT < 0.1 MG/DL (0.0-0.2); BILIRUBIN,TOTAL 0.2 MG/DL (0.2-1.0); BLOOD UREA NITROGEN 19 MG/DL (7-18); CARBON DIOXIDE LEVEL 27 MEQ/L (21-32); CHLORIDE LEVEL 106 MEQ/L (98-107); CK-MB VALUE MASS 1.2 NG/ML (<3.6); CPK CREATINE PHOSPHOKINASE 128 U/L (39-308); CREATININE FOR GFR 1.22 MG/DL (0.70-1.30); GLOMERULAR FILTRATION RATE > 60.0 (>49); GLUCOSE, FASTING 111 MG/DL (70-100); LIPASE 226 U/L (73-393); MB/CK RELATIVE INDEX 0.94 (< OR =4); NT-PRO BNP 217 PG/ML (<125); POTASSIUM SERUM 3.9 MEQ/L (3.5-5.1); SODIUM LEVEL 140 MEQ/L (136-145); TOTAL PROTEIN 6.9 GM/DL (6.4-8.2); TROPONIN I < 0.02 NG/ML (< 0.10)
--- NOTE | 2018-10-17 18:53 | REP ---
Clinical: Acute chest pain . Comparison: Report dated 11/15/2016 . Findings: The mediastinum and cardiac silhouette are stable and within normal limits for portable technique. The lung osborn are clear without acute consolidation, effusion, or pneumothorax. Right linear scarring at the left base. Skeletal structures are intact. Impression: No acute cardiopulmonary process appreciated. Electronically Signed by Dean Huber MD 10/17/2018 06:45 P
[2018-10-17] MEDS: SYMBICORT 80/4.5MCG INHALER 6GM INH SCH (20:00)
--- NOTE | 2018-10-17 20:04 | REPVR ---
EXAM: US Duplex Bilateral Lower Extremity Veins EXAM DATE/TIME: 10/17/2018 7:19 PM CLINICAL HISTORY: 68 years old, male; Pain; Leg, upper; Bilateral; Additional info: Leg pain R/O dvt TECHNIQUE: Imaging protocol: Real-time duplex ultrasound of the Bilateral Lower Extremities with 2-D miranda scale, color Doppler flow and spectral waveform analysis with image documentation. Complete exam focused on the bilateral lower extremity veins. COMPARISON: No relevant prior studies available. FINDINGS: Right deep veins: Unremarkable. The common femoral, femoral, proximal profunda femoral and popliteal veins are patent without thrombus. Normal Doppler waveforms. Normal compressibility and/or augmentation response. Right superficial veins: Saphenofemoral junction is patent without thrombus. Left deep veins: Unremarkable. The common femoral, femoral, proximal profunda femoral and popliteal veins are patent without thrombus. Normal Doppler waveforms. Normal compressibility and/or augmentation response. Left superficial veins: Saphenofemoral junction is patent without thrombus. Soft tissues: Unremarkable. IMPRESSION: No evidence of deep venous thrombus in the bilateral lower extremities. Electronically signed by: Gayle Jo On 10/17/2018 20:04:18 PM
[2018-10-17] MEDS ORDERED: DONEPEZIL 5 MG TAB PO SCH (21:00)
[2018-10-17] MEDS: GABAPENTIN 300 MG CAP PO SCH (21:00)
[2018-10-17] MEDS: OXcarbazepine 300 MG TAB PO SCH (21:00)
[2018-10-17] MEDS: HumaLOG INSULIN (NovoLOG) PER UNIT SC SCH (21:00)
[2018-10-17] MEDS ORDERED: ALLE180T33 PO (21:15)
[2018-10-17] MEDS ORDERED: MIRA0.12 PO (21:15)
[2018-10-17] MEDS ORDERED: DONE10TA90 PO (21:15)
[2018-10-17] MEDS ORDERED: FLAX1300 PO (21:15)
[2018-10-17] MEDS ORDERED: GLIP5TAB8 PO (21:15)
[2018-10-17] MEDS ORDERED: BREO1INH INH (21:15)
[2018-10-17] MEDS ORDERED: OYST1TAB PO (21:15)
[2018-10-17] MEDS ORDERED: VITAD1000T PO (21:15)
[2018-10-17] MEDS ORDERED: LORA0.5T11 PO (21:15)
[2018-10-17] MEDS ORDERED: VITA500045 PO (21:15)
[2018-10-17] MEDS ORDERED: EYEDRO5 OU (21:15)
[2018-10-17] MEDS ORDERED: IBUP1TAB6 PO (21:15)
[2018-10-17] MEDS ORDERED: TRUL0.5I SC (21:17)
[2018-10-17] MEDS ORDERED: MORPHINE 4 MG/ML 1ML VIAL/SYRINGE (J2270) IV PRN (21:30)
[2018-10-17] MEDS ORDERED: NITROGLYCERIN 0.4 MG SUBL TABLET SL PRN (21:30)
--- NOTE | 2018-10-17 22:21 | HPEPDOC ---
[facility] Medical History & Physical Date of Admission Oct 17, 2018 Date of Service: Oct 17, 2018 Attending Physician: SHILO BAUTISTA MD History and Physical CHIEF COMPLAINT: Chest pain over the past 3 days HISTORY OF PRESENT ILLNESS: 68-year-old male with a history of diabetes, hypertension and hy perlipidemia. Patient developed sharp chest pain, lower right chest on a scale of 4-6/10 for the past 3 days on and off. Patient has been having shortness of breath on exertion for a while before the chest pain. He also complained of some left knee and hip secondary to arthritis. Patient was given 3 nitroglycerin and 4 baby aspirin and referred plus observation stay. His chest pain has subsided now. We'll observe overnight PAST MEDICAL HISTORY: Chronic asthma Hypertension Diabetes type 2 Hyperlipidemia Depression RLS Diabetic neuropathy Gait difficulty Arthritis, left knee and hip PAST SURGICAL HISTORY: Knee surgery SOCIAL HISTORY: Patient never smoked, doesn't recall quality drugs and lives at home. FAMILY HISTORY: Father significant for angina and CAD ALLERGIES: Please see below. REVIEW OF SYSTEMS: Positive chest pain Positive shortness of breath. Positive gait difficulty, posi tive Chronic left knee and hip pain. The rest of the 12 point review of systems normal HOME MEDICATIONS: Please see below. PHYSICAL EXAMINATION: VITAL SIGNS: Temperature , pulse , respiratory rate , blood pressure , pulse oximetry % on room air. GENERAL APPEARANCE: Awake, no distress HEENT: PERRLA. Normocephalic CARDIOVASCULAR: S1, S2, regular, no melena gallop LUNGS: Clear bilaterally. No wheezes, No rhonchi ABDOMEN: Soft, positive bowel sounds nontender MUSCULOSKELETAL: Trace edema, 2+ pulses regular. Extremity NEUROLOGICAL: Moving all extremities, nonfocal cranial nerves ntact PSYCHIATRIC: Calm LABORATORY DATA: See below. EKG review normal sinus rhythm, rate of 61. Nonspecific ST-T wave abnormality IMAGING: CXR;Impression: No acute cardiopulmonary process appreciated. MICROBIOLOGY: Please see below. ASSESSMENT/PLAN #1 intermittent chest pain. Suspected angina versus CAD. Patient will need stress test. Cardiology consul and troponin 3. Morphine when necessary pain, aspirin and nitroglycerin when necessary,. Patient has no chest pain at present time. So far, troponin negative #2 Shortness of breath on exertion Above 92%. #3 diabetes type 2 with complication Accu-Chek with insulin, which and monitor blood sugar. #4. Diabetic neuropathy Continue medication. #5 . Chronic asthma No wheezing at present time. Continue meds. #6. Arthritis of left knee and hip Plan medication when necessary #7. Depression on medication. #8 RLS On medication Heparin subcutaneous for DVT prophylaxis. Patient stable. Follow troponin and cardiology consult. Discuss with Dr. Bautista hospitalists. We will reorder medication when available. Time spent 42 minutes Vital Signs Vital Signs Date Time Temp Pulse Resp B/P (MAP) Pulse Ox O2 Delivery O2 Flow Rate FiO2 10/17/18 20:15 59 18 134/72 (92) 94 Room Air 10/17/18 17:09 98.3 Laboratory Data Labs 24H Laboratory Tests 2 10/17/18 17:56: Immature Granulocyte % (Auto) 0.7, White Blood Count 9.7, Red Blood Count 4.05L, Hemoglobin 12.4L, Hematocrit 36.6L, Mean Corpuscular Volume 90.4, Mean Corpuscular Hemoglobin 30.6, Mean Corpuscular Hemoglobin Concent 33.9, Red Cell Distribution Width 13.4, Platelet Count 234, Neutrophils (%) (Auto) 59.0, Lymphocytes (%) (Auto) 28.4, Monocytes (%) (Auto) 8.7H, Eosinophils (%) (Auto) 2.9, Basophils (%) (Auto) 0.3, Neutrophils # (Auto) 5.7, Lymphocytes # (Auto) 2.8, Monocytes # (Auto) 0.8, Eosinophils # (Auto) 0.3, Basophils # (Auto) 0.0, Nucleated Red Blood Cells % (auto) 0.0, Prothrombin Time 13.3, Prothromb Time International Ratio 1.04, D-Dimer, Quantitative 644.44H, Anion Gap 7L, Glomerular Filtration Rate > 60.0, Calcium Level 9.0, Aspartate Amino Transf (AST/SGOT) 23, Alanine Aminotransferase (ALT/SGPT) 41, Alkaline Phosphatase 90, Total Bilirubin 0.2, Direct Bilirubin < 0.1, Total Creatine Kinase 128, Creatine Kinase MB 1.2, Creatine Kinase MB Relative Index 0.94, Troponin I < 0.02, IG-Ocx-T-Type Natriuretic Peptide 217H, Total Protein 6.9, Albumin 3.3, Albumin/Globulin Ratio 0.92L, Lipase 226 CBC/BMP Laboratory Tests 10/17/18 17:56 Red Blood Count 4.05 L, Mean Corpuscular Volume 90.4, Mean Corpuscular Hemoglobin 30.6, Mean Corpuscular Hemoglobin Concent 33.9, Red Cell Distribution Width 13.4, Neutrophils (%) (Auto) 59.0, Lymphocytes (%) (Auto) 28.4, Monocytes (%) (Auto) 8.7 H, Eosinophils (%) (Auto) 2.9, Basophils (%) (Auto) 0.3, Neutrophils # (Auto) 5.7, Lymphocytes # (Auto) 2.8, Monocytes # (Auto) 0.8, Eosinophils # (Auto) 0.3, Basophils # (Auto) 0.0 Home Medications Scheduled Calcium Carbonate (Tums) 500 Mg Chw, 500 MG PO DAILY Calcium Carbonate (Calcium) 500 Mg Tablet, 500 MG PO DAILY Donepezil HCl (Donepezil HCl) 10 Mg Tablet, 10 MG PO QHS Dulaglutide (Trulicity) 1.5 Mg/0.5 Ml Pen.injctr, 1.5 MG SC QWEEK TUESDAYS Ergocalciferol (Vitamin D2) (Vitamin D2) 50,000 Unit Capsule, 50,000 UNIT PO QWEEK TUESDAYS Fexofenadine HCl (Kristen Allergy) 180 Mg Tablet, 180 MG PO DAILY Flaxseed/Omega3,6,9/Fatty Acid (Flax Seed Oil 1,300 mg Softgel) 1 Each Capsule, 1 CAP PO DAILY Fluoxetine Hcl (Fluoxetine HCl) 20 Mg Cap, 20 MG PO QHS Fluoxetine Hcl (Fluoxetine HCl) 40 Mg Cap, 40 MG PO QAM Fluticasone/Vilanterol (Breo Ellipta 100-25 Mcg INH) 1 Each Blst.w.dev, 1 PUFF INH DAILY Gabapentin (Gabapentin) 300 Mg Cap, 300 MG PO TID Glipizide (Glipizide) 5 Mg Tablet, 2.5 MG PO DAILY Latanoprost (Xalatan) 0.005 % Uzma, 1 DROP OU QHS Lorazepam (Ativan) 0.5 Mg Tab, 0.5 MG PO QHS Losartan Potassium (Losartan Potassium) 50 Mg Tab, 50 MG PO DAILY Gotham-3 Fatty Acids/Fish Oil (Fish Oil 1,000 mg Capsule) 1 Each Capsule, 1,000 MG PO BID Omeprazole (Omeprazole) 40 Mg Cap, 40 MG PO BID Oxcarbazepine (Oxcarbazepine) 300 Mg Tab, 600 MG PO BID Pramipexole Di-HCl (Mirapex) 0.125 Mg Tablet, 0.125 MG PO QHS Quetiapine Fumarate (Quetiapine Fumarate) 100 Mg Tab, 100 MG PO QHS Simvastatin (Zocor) 20 Mg Tab, 20 MG PO QHS Tamsulosin HCl (Flomax) 0.4 Mg Cap, 0.4 MG PO DAILY Vitamin D (Vitamin D3) 1,000 Unit Tablet, 1,000 UNITS PO DAILY Scheduled PRN Albuterol Sulf (Albuterol Sulfate) 2.5 Mg/3 Ml Nebu, 2.5 MG INH Q4H PRN for SHORTNESS OF BREATH Fluticasone Propionate (Flonase Allergy Relief) 50 Mcg/Act Spr, 1 SPRAY NARES DAILY PRN for NASAL CONGESTION Ibuprofen (Ibuprofen) 600 Mg Tablet, 600 MG PO BID PRN for PAIN Lorazepam (Lorazepam) 0.5 Mg Tablet, 0.5 MG PO DAILY PRN for ANXIETY/AGITATION Meclizine HCl (Meclizine HCl) 25 Mg Tab, 25 MG PO TIDP PRN for DIZZINESS Nitroglycerin (Nitrostat) 0.4 Mg Subl, 0.4 MG SL NITRO PRN for CHEST PAIN Tetrahydroz/Dext 70/Peg 400/Pv (Eye Drops) 15 Ml Drops, 1 ROXANN OU QHS PRN for DRY EYES Trazodone HCl (Trazodone HCl) 150 Mg Tab, 75 MG PO QHS PRN for SLEEP Allergies Coded Allergies: Penicillins (Verified Allergy, Severe, ANAPHYLAXIS, 06/20/18) divalproex sodium (Verified Allergy, Intermediate, GI, 10/17/18) "DEATHLY SICK" diclofenac (Verified Allergy, Unknown, 06/20/18) Contrast Media (Verified Adverse Reaction, Severe, DIZZINESS CONFUSION UNRESPONSIVENESS, 06/20/18) Cephalosporins (Verified Adverse Reaction, Mild, GI, 06/20/18) Sulfa (Sulfonamide Antibiotics) (Verified Adverse Reaction, Mild, GI, 06/20/18) cetirizine (Verified Adverse Reaction, Mild, REACTED WITH OTHER MEDS, 06/20/18) doxycycline (Verified Adverse Reaction, Mild, GI, 06/20/18) valproic acid (Verified Adverse Reaction, Mild, N/V, 06/20/18) A-FIB/CHADSVASC A-FIB History Current/History of A-Fib/PAF?: No Current PO Anticoag Therapy: No LISSETTE SHIRLEY PA-C Oct 17, 2018 22:21
--- NOTE | 2018-10-17 22:36 | ECGEPIP ---
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
[2018-10-17] MEDS ORDERED: ALBUTEROL SULFATE 2.5 MG/0.5 ML INH NEB SOLN NEB PRN (23:15)
[2018-10-17] MEDS ORDERED: traZODone 50 MG TAB PO PRN (23:15)
[2018-10-17] MEDS ORDERED: GLUCAGON FOR INJ 1 MG VIAL (J1610) SC PRN (23:15)
[2018-10-17] MEDS ORDERED: GLUCOSE 4 GM CHEW TABLET PO PRN (23:15)
[2018-10-17] MEDS ORDERED: DEXTROSE 50% 50 ML SYRINGE IV PRN (23:15)
[2018-10-17 23:52] VITALS: BP 154/81
[2018-10-18] MEDS: OMEPRAZOLE 20 MG CAP PO SCH ×3 (00:24→21:29)
[2018-10-18] MEDS: PRAMIPEXOLE (MIRAPEX) 0.125 MG TAB PO SCH ×2 (00:24→21:25)
[2018-10-18] MEDS: FLUoxetine 20 MG CAP PO SCH ×3 (00:24→21:26)
[2018-10-18] MEDS: LORazepam 0.5 MG TAB PO SCH ×2 (00:24→21:25)
[2018-10-18] MEDS: SIMVASTATIN 20 MG TAB PO SCH ×2 (00:25→21:30)
[2018-10-18] MEDS: QUEtiapine FUMARATE 100 MG TAB PO SCH ×2 (00:26→21:30)
[2018-10-18] MEDS: LATANOPROST 0.005% OPHTH SOLN 2.5 ML OU SCH ×2 (00:26→21:30)
[2018-10-18] MEDS: NS 0.45% 1,000 ML IV SCH ×2 (00:26→15:10)
[2018-10-18] MEDS: TAMSULOSIN 0.4 MG CAP PO SCH ×2 (00:26→21:29)
[2018-10-18] MEDS: ENOXAPARIN 120 MG/0.8 ML SYR (J1650) SC SCH ×2 (01:52→13:40)
[2018-10-18 02:15] LABS: CK-MB VALUE MASS 1.3 NG/ML (<3.6); CPK CREATINE PHOSPHOKINASE 114 U/L (39-308); MB/CK RELATIVE INDEX 1.14 (< OR =4); TROPONIN I < 0.02 NG/ML (< 0.10)
[2018-10-18] MEDS ORDERED: ACETAMINOPHEN 500 MG TAB PO PRN (02:15)
[2018-10-18 06:00] VITALS: BP 150/84
[2018-10-18] MEDS ORDERED: HEPARIN SOD (PORCINE) 5000 UNITS/ML VIAL SQ SCH (06:00)
[2018-10-18] MEDS: SYMBICORT 80/4.5MCG INHALER 6GM INH SCH ×2 (07:49→21:15)
[2018-10-18] MEDS: HumaLOG INSULIN (NovoLOG) PER UNIT SC SCH ×4 (08:29→21:00)
[2018-10-18] MEDS ORDERED: LOSARTAN 50 MG TAB PO SCH (09:00)
[2018-10-18] MEDS: ASPIRIN 325 MG TAB PO SCH (09:37)
[2018-10-18] MEDS: GABAPENTIN 300 MG CAP PO SCH ×3 (09:38→21:28)
[2018-10-18] MEDS: OXcarbazepine 300 MG TAB PO SCH ×2 (09:38→21:29)
[2018-10-18] MEDS: glipiZIDE (GLUCOTROL) 5 MG TAB PO SCH (09:55)
--- NOTE | 2018-10-18 09:55 | IPNPDOC ---
Date Seen The patient was seen on 10/18/18. Progress Note SUBJECTIVE: Pt c/o chest pain sharp in the anterior chest without radiation lasting for <1hr after receiving a call from the DA's office in [facility] that his grandson is incarcerated. He had some relief after taking 3 nitroglycerin sl and 4 baby ASA in the ER without recurrent episodes. CP was associated with sob, but no diaphoresis, feeling of impending doom, nausea, vomiting, or epigastric pain. Pharmacologic stress testing was done 6years ago. He has not had recurrent exertional chest pain, wayne or any other anginal equivalent symptoms since then. He otherwise denies any pleurisy, recent long distance car or plane travel, hemoptysis, or personal/family history of hypercoagulable state, or personal history of prior malignancies. US b/L LE: negative for DVT. pt has no tachycardia, or sob this morning. due to IV contrast dye allergy causing severe respiratory distress, Ct chest angio to rule out PE has been cancelled. No other compelling evidence to suspect pulmonary embolism to necessitate empiric iv heparin gtt and a V/Q scan on Saturday. OBJECTIVE: PHYSICAL EXAMINATION: VITAL SIGNS: pls see below GENERAL APPEARANCE: eating his breakfast sitting on the side of the bed. no conv ersational dyspnea, AAO x 3 HEENT: PERRLA. Normocephalic anicteric no JVD LAD or cervical LAD moist and pink mucusa CARDIOVASCULAR: S1, S2, regular, no murmurs, rubs, gallop LUNGS: Clear bilaterally. No wheezes, No rhonchi no other adventitious breath sounds ABDOMEN: Soft, positive bowel sounds nontender obese MUSCULOSKELETAL: Trace edema, 2+ pulses regular. Extremity NEUROLOGICAL: Moving all extremities, nonfocal cranial nerves ntact LABORATORY DATA: See below. EKG review normal sinus rhythm, rate of 61. Nonspecific ST-T wave abnormality IMAGING: CXR;Impression: No acute cardiopulmonary process appreciated. MICROBIOLOGY: Please see below. ASSESSMENT/PLAN 68-year-old male with a history of diabetes, hypertension and hyperlipidemia. Patient developed sharp chest pain, lower right chest on a scale of 4-6/10 for the past 3 days on and off. Patient has been having shortness of breath on exertion for a while before the chest pain. He also complained of some left knee and hip secondary to arthritis. Patient was given 3 nitroglycerin and 4 baby aspirin and referred plus observation stay. His chest pain has subsided now. Chest pain Pt c/o chest pain sharp in the anterior chest without radiation lasting for <1hr after receiving a call from the DA's office in [facility] that his grandson is incarcerated. He had some relief after taking 3 nitroglycerin sl and 4 baby ASA in the ER without recurrent episodes. CP was associated with sob, but no diaphoresis, feeling of impending doom, nausea, vomiting, or epigastric pain. Pharmacologic stress testing was done 6years ago. He has not had recurrent exertional chest pain, wayne or any other anginal equivalent symptoms since then. He otherwise denies any pleurisy, recent long distance car or plane travel, hemoptysis, or personal/family history of hypercoagulable state, or personal history of prior malignancies. US b/L LE: negative for DVT. pt has no tachycardia, or sob this morning. due to IV contrast dye allergy causing severe respiratory distress, Ct chest angio to rule out PE has been cancelled. No other compelling evidence to suspect pulmonary embolism to necessitate empiric iv heparin gtt and a V/Q scan on Saturday. EKG has no acute ischemic changes, and troponins are negative. may benefit from repeat stress test or angiogram due to cardiovascular risk factors: male, dm, HTN, obese, metabolic syndrome, dysl ipidemia. Dyspnea on Exertion -most likely due to obesity hypoventilation, but may be an anginal equivalent -despite negative EKG and troponins, will obtain an ECHO diabetes type 2 with complication Accu-Chek with insulin, which and monitor blood sugar. consistent carbs diet checked a1c Metabolic syndrome DM, HTN,dyslipidemia, Obesity bmI 37 -checked A1c, titrated bp meds for better control, weight loss counselling, lipid panel checked Diabetic neuropathy Continue medication. Chronic asthma No wheezing at present time. Continue PRN meds. Arthritis of left knee and hip Plan medication when necessary Depression on medication. RLS On medication Obesity bmi 37 complicating care disposition:dc in am if negative echo, ct chest, and passes HSE VS, I&O, 24H, Fishbone Vital Signs/I&O Vital Signs Date Time Temp Pulse Resp B/P (MAP) Pulse Ox O2 Delivery O2 Flow Rate FiO2 10/18/18 09:41 153/75 10/18/18 06:00 96.8 55 17 96 10/17/18 22:15 Room Air I&O- Last 24 Hours up to 6 AM 10/18/18 05:59 Intake Total 0 ml Output Total 0 ml Balance 0 ml Laboratory Data 24H LABS Laboratory Tests 2 10/17/18 17:56: Immature Granulocyte % (Auto) 0.7, White Blood Count 9.7, Red Blood Count 4.05L, Hemoglobin 12.4L, Hematocrit 36.6L, Mean Corpuscular Volume 90.4, Mean Corpuscular Hemoglobin 30.6, Mean Corpuscular Hemoglobin Concent 33.9, Red Cell Distribution Width 13.4, Platelet Count 234, Neutrophils (%) (Auto) 59.0, L ymphocytes (%) (Auto) 28.4, Monocytes (%) (Auto) 8.7H, Eosinophils (%) (Auto) 2.9, Basophils (%) (Auto) 0.3, Neutrophils # (Auto) 5.7, Lymphocytes # (Auto) 2.8, Monocytes # (Auto) 0.8, Eosinophils # (Auto) 0.3, Basophils # (Auto) 0.0, Nucleated Red Blood Cells % (auto) 0.0, Prothrombin Time 13.3, Prothromb Time International Ratio 1.04, D-Dimer, Quantitative 644.44H, Anion Gap 7L, Glomerular Filtration Rate > 60.0, Calcium Level 9.0, Aspartate Amino Transf (AST/SGOT) 23, Alanine Aminotransferase (ALT/SGPT) 41, Alkaline Phosphatase 90, Total Bilirubin 0.2, Direct Bilirubin < 0.1, Total Creatine Kinase 128, Creatine Kinase MB 1.2, Creatine Kinase MB Relative Index 0.94, Troponin I < 0.02, NT-P ro-B-Type Natriuretic Peptide 217H, Total Protein 6.9, Albumin 3.3, Albumin/Globulin Ratio 0.92L, Lipase 226 10/18/18 00:09: Bedside Glucose (Misc Panel) 105 10/18/18 01:45: Total Creatine Kinase 114, Creatine Kinase MB 1.3, Creatine Kinase MB Relative Index 1.14, Troponin I < 0.02 10/18/18 07:55: Bedside Glucose (Misc Panel) 121H CBC/BMP Laboratory Tests 10/17/18 17:56 Red Blood Count 4.05 L, Mean Corpuscular Volume 90.4, Mean Corpuscular Hemoglobin 30.6, Mean Corpuscular Hemoglobin Concent 33.9, Red Cell Distribution Width 13.4, Neutrophils (%) (Auto) 59.0, Lymphocytes (%) (Auto) 28.4, Monocytes (%) (Auto) 8.7 H, Eosinophils (%) (Auto) 2.9, Basophils (%) (Auto) 0.3, Neutrophils # (Auto) 5.7, Lymphocytes # (Auto) 2.8, Monocytes # (Auto) 0.8, Eosinophils # (Auto) 0.3, Basophils # (Auto) 0.0 NORMA FARMER MD Oct 18, 2018 09:55
[2018-10-18 10:02] LABS: BASO % 0.3 % (0.0-1.0); EOS # 0.3 10^3/uL (0.0-0.50); HEMATOCRIT 37.4 % (42.0-52.0); HEMOGLOBIN 12.6 g/dl (13.5-17.5); LYMPH # 2.2 10^3/uL (1.5-4.5); LYMPH % 34.2 % (24.0-44.0); MEAN CORPUSCULAR HEMOGLOBIN 31.7 pg (27.0-33.0); MEAN CORPUSCULAR HGB CONC 33.7 g/dl (32.0-36.5); MONO # 0.4 10^3/uL (0.0-0.8); MONO % 6.6 % (0.0-5.0); NEUTROPHILS # 3.4 10^3/uL (1.8-7.7); NEUTROPHILS % 54.4 % (36.0-66.0); PLATELET COUNT, AUTOMATED 212 10^3/uL (150-450); RED BLOOD COUNT 3.98 10^6/uL (4.30-6.10); WHITE BLOOD COUNT 6.3 10^3/uL (4.0-10.0)
[2018-10-18 11:22] LABS: ALBUMIN 2.9 GM/DL (3.2-5.2); ALT/SGPT 41 U/L (12-78); BILIRUBIN,TOTAL 0.4 MG/DL (0.2-1.0); BLOOD UREA NITROGEN 18 MG/DL (7-18); CALCIUM LEVEL 8.4 MG/DL (8.8-10.2); CARBON DIOXIDE LEVEL 19 MEQ/L (21-32); CHLORIDE LEVEL 108 MEQ/L (98-107); CK-MB VALUE MASS 1.2 NG/ML (<3.6); CPK CREATINE PHOSPHOKINASE 182 U/L (39-308); CREATININE FOR GFR 1.23 MG/DL (0.70-1.30); GLOMERULAR FILTRATION RATE > 60.0 (>49); GLUCOSE, FASTING 177 MG/DL (70-100); MAGNESIUM LEVEL 0.3 MG/DL (1.8-2.4); MB/CK RELATIVE INDEX 0.66 (< OR =4); POTASSIUM SERUM 4.4 MEQ/L (3.5-5.1); SODIUM LEVEL 136 MEQ/L (136-145); TOTAL PROTEIN 7.3 GM/DL (6.4-8.2); TROPONIN I < 0.02 NG/ML (< 0.10)
[2018-10-18] MEDS ORDERED: MAGNESIUM SULFATE 1 GM/100 ML D5W BAG (10MG/ML) (J3475) As Ordered ONE (11:43)
[2018-10-18] MEDS: MAG SULF 1GM/100ML (MAG RUN) 1 GM in APPROPRIATE DILUENT 1 EA IV SCH ×3 (11:50→15:11)
[2018-10-18] MEDS ORDERED: **hydrALAZINE** 10 MG TAB PO SCH (12:00)
[2018-10-18] MEDS ORDERED: LOSARTAN 50 MG TAB PO ONE (12:00)
--- NOTE | 2018-10-18 13:36 | CR ---
DATE OF CONSULTATION: 10/18/2018 REFERRING INDIVIDUAL: Jessica Truong, physicians assistant center manager. REASON FOR CONSULTATION: Chest pain, unspecified. HISTORY OF PRESENT ILLNESS: Noah Huerta is a pleasant 68-year-old man with systemic hypertension, obesity, type 2 diabetes, hyperlipidemia, and previous traumatic brain injury. He has chronic asthma, and restless syndrome. He presented to hospital and was admitted on 10/17/2018 with a 3-4 day history of recurrent chest pain. He describes his chest pain as well localized just below the right nipple which feels sharp, stabbing and episodes last approximately 1 minute reaching back from severity of 7 out of 10. Episodes have been variable in occurrence but have been as much as 6-7 times per day. When present, the pain is particularly made worse by deep inspiration. The spot that hurts is tender. The chest pain feels superficial. There is no pressure, tightness, squeezing or heaviness component. No radiation. There has been no relationship to physical exertion, or breathing. He thinks it might be made a bit better by lying down. Denies any exertional shortness of breath. No orthopnea or PND. No cough or sputum. No peripheral edema. No palpitations, embolic events, syncope, or claudication. OTHER PAST MEDICAL AND SURGICAL HISTORY: Asthma. Obesity. Systemic hypertension. Type 2 diabetes. Hyperlipidemia. Depression. Restless leg syndrome. Traumatic brain injury. Diabetic neuropathy. Gait difficulty. Left knee and hip arthritis. Prior knee surgery. SOCIAL HISTORY: Nonsmoker. No elicit drugs. FAMILY HISTORY: Father had coronary artery disease (CAD)/angina. REVIEW OF SYSTEMS: Chest pain as noted above. Difficulty with gait. Chronic left knee and left hip pain. All other ten point review of systems negative. MEDICATIONS PRIOR TO ADMISSION: - albuterol 2.5 mg every 4 hours as needed - TUMS 500 mg daily - Donepezil 10 mg daily at bedtime - Trulicity 1.5 mg once a week on Tuesdays - vitamin D2 50,000 units once a week on Tuesdays - Kristen 180 mg daily - flaxseed/Marion 3, 6, 9, 1300 mg once daily - fluoxetine 20 mg daily at bedtime and 40 mg daily every morning - Flonase nasal spray as needed - Breo Ellipta one inhalation daily - gabapentin 300 mg three times daily - glipizide 2.5 mg daily - ibuprofen 600 mg twice daily - Xalatan one drop both eyes at bedtime - Ativan 0.5 mg daily at bedtime and daily as needed for anxiety/agitation - Losartan 50 mg daily - meclizine 25 mg three times daily as needed - nitroglycerine 0.4 mg sublingual as needed - omeprazole 40 mg twice daily - oxcarbazepine 600 mg twice daily - Mirapex 0.125 mg daily at bedtime - quetiapine 100 mg daily at bedtime - simvastatin 20 mg at bedtime - Flomax 0.4 mg daily - trazodone 75 mg at bedtime - vitamin D 1000 units by mouth daily CURRENT MEDICATIONS IN THE HOSPITAL: - aspirin 325 mg daily - fluoxetine 40 mg daily every morning - glipizide 2.5 mg daily - Losartan 50 mg daily - Humalog insulin before meals per sliding scale - acetaminophen 1000 mg every 8 hours as needed - Lovenox 120 mg subcutaneous every 12 hours - trazodone 75 mg daily at bedtime - albuterol 2.5 mg daily at bedtime as needed - IV normal saline 60 mL/hr - nitroglycerine 0.4 mg every 5 minutes as needed - morphine 2 mg every 4 hours as needed - Lispro insulin per sliding scale daily at bedtime - Prozac 20 mg daily at bedtime - gabapentin 300 mg by mouth daily at bedtime - Xalatan 1 drop both eyes daily at bedtime - Ativan 0.5 mg daily at bedtime - Prilosec 40 mg twice daily - Mirapex 0.125 mg daily at bedtime - Seroquel 100 mg daily at bedtime - simvastatin 20 mg daily at bedtime - tamsulosin 0.4 mg daily - Aricept 10 mg daily at bedtime - Trileptal 600 mg twice daily - Symbicort two puffs twice daily ADVERSE DRUG REACTIONS: CEPHALOSPORINS, CONTRAST MEDIA, PENICILLINS, SULFONAMIDE ANTIBIOTICS, CETIRIZINE, DICLOFENAC, DIVALPROEX, DOXYCYCLINE, VALPROIC ACID. PHYSICAL EXAMINATION: Pleasant, obese, man who appears chronologic age. Height 72 inches, weight 125.9 kg, BMI 37.6. Temperature 96.8, pulse 55, respiratory rate 17, blood pressure 153/75, oxygen saturation 96% on room air. No conjunctiva, pallor or scleral icterus or xanthomatous. Some missing teeth. Oral mucosa is moist and without pallor or stenosis. Jugular venous pulsations were 3 cm. No palpable thyroid. No clubbing, nailbed cyanosis or splinter hemorrhages. No skin lesions, skin pallor or icterus. Oriented to person, place and time. Mood and affect normal. Gait was normal. Curvature of the spine normal. Gross motor, strength and tone normal. No abnormal muscle atrophy, fasciculations or tremors. Respiratory expansion effort was normal. No crackles or wheezes. No palpable apex beat. No parasternal lifts, heaves or palpable heart sounds. First and second heart sounds are normal. No S3 or S4. No murmurs. No pericardial friction rubs. Carotids are normal in volume and contour and without bruits. No palpable abdominal aorta. Femoral pulses normal. Pedal pulses normal. No peripheral edema. No varicose veins. Abdomen obese, soft, nontender with normal bowel sounds. Difficult to assess the waistband due to abdominal obesity. No hepatomegaly or splenomegaly or other organomegaly. Stool for occult blood not presently indicated. INVESTIGATIONS: Electrocardiogram 10/17/2018 at 1722 hours shows sinus rhythm, 62 BPM, moderate nonspecific QRS finding, baseline wander, nonspecific T-wave abnormalities. Portable chest x-ray 10/17/2018 at 1753 hours was reported to show no acute cardiopulmonary process appreciated. Mediastinum and cardiac silhouette stable and within normal limits for portable technique. Lung osborn clear without acute consolidation, effusion, or pneumothorax. Right linear scarring at the left base. Skeletal structures intact. Bilateral lower extremity vein duplex ultrasound 10/17/2018 reported no evidence of deep venous thrombus in the bilateral lower extremities. LABORATORY WORK 10/17/2018 AT 1756 HOURS: Is reviewed. WBC 9.7, hemoglobin 12.4, hematocrit 36.6, platelets 234. Sodium 140, potassium 3.9, chloride 106, CO2 27, BUN 19, creatinine 1.22. Estimated glomerular filtration rate greater than 60. Glucose 111. Calcium 9.0. Bilirubin 0.2. Direct bilirubin less than 0.1. NT-Pro-B 217, total protein 6.9, albumin 3.3. CPK 128, CK-MB 1.2, CK-MB 0.94. Troponin I less than 0.02. LABORATORY WORK 10/18/2018 AT 1:45 A.M.: CPK 114, CPK-MB 1.3, troponin I less than 0.02. ASSESSMENT AND RECOMMENDATIONS: 1. Chest pain other. This patient describes noncardiac chest pain. He describes well localized sharp, stabbing pain just below the right nipple which is without radiation lasting for about a minute at times. This is recurrent and unrelated to physical insertion. Is made worse with deep inspiration and he reports tenderness. His electrocardiogram does not show any pathologic Q-waves and the T-waves are nonspecific and not suggestive of myocardial ischemia. Cardiac enzymes so far have been negative for myocardial infarction/necrosis. Most likely the chest pain is musculoskeletal and I would suggest just symptomatic treatment with simple analgesics as needed. Because of chest pain description is not cardiac, I do not advise pursuing cardiac stress testing at this time. Recommend ongoing ASCVD risk factor modification. 2. Systemic hypertension. Patient's blood pressures here in the hospital are mostly running mildly uncontrolled especially for the systolic blood pressure. I suggest increasing the dosage of Losartan. 3. Hyperlipidemia. Recent lipid values are reviewed. Patient has diabetes. Because of the diabetes, I suggest he be changed over the intensive statin therapy rather than simvastatin 20 mg daily at bedtime. However, I recommend obtaining a fasting lipid profile prior to initiating this change to see where his lipid panel resides at the present time. 4. Abnormal ECG. Patient has some nonspecific QRS widening and nonspecific Q wave abnormalities. He was ordered to have an echocardiogram Doppler today and I will review the echocardiogram when it becomes available. As mentioned above, the ECG abnormalities at this point do not really provide good justification for cardiac stress testing. 5. Obesity. Patient has systemic hypertension, hyperlipidemia, and type 2 diabetes. I suggest the patient be on a low fat/ whole fruit, more plant based diet. 6. Just as an aside, I do not really see a good valid reason for the patient to be on Aricept and I recommend that Aricept be discontinued. Thank you kindly for asking me to see this patient in consultation.
[2018-10-18] MEDS ORDERED: MAG SULF 1GM/100ML (MAG RUN) 1 GM in APPROPRIATE DILUENT 1 EA IV ONE (13:45)
[2018-10-18 14:00] VITALS: BP 150/72
[2018-10-18] MEDS ORDERED: MAGNESIUM OXIDE 400 MG TAB (MAG-OX) PO ONE (14:00)
[2018-10-18 15:15] VITALS: BP 162/100
[2018-10-18 16:36] VITALS: BP 162/94
[2018-10-18 19:05] LABS: IONIZED CALCIUM 4.5 MG/DL (4.5-5.3)
[2018-10-18 19:32] LABS: MAGNESIUM LEVEL 2.5 MG/DL (1.8-2.4)
[2018-10-18 22:00] VITALS: BP 132/80
[2018-10-18] MEDS: MAGNESIUM OXIDE 400 MG TAB (MAG-OX) PO SCH (22:09)
[2018-10-19] MEDS: ENOXAPARIN 120 MG/0.8 ML SYR (J1650) SC SCH (01:30)
[2018-10-19 06:00] VITALS: BP 131/77
[2018-10-19] MEDS ORDERED: **hydrALAZINE** 10 MG TAB PO SCH (06:00)
[2018-10-19 06:59] LABS: HEMOGLOBIN A1c 7.6 %
[2018-10-19 07:00] LABS: CHOLESTEROL RISK RATIO 3.125 (<5)
[2018-10-19] MEDS: SYMBICORT 80/4.5MCG INHALER 6GM INH SCH (07:27)
[2018-10-19] MEDS: HumaLOG INSULIN (NovoLOG) PER UNIT SC SCH ×2 (08:12→11:58)
[2018-10-19] MEDS: OMEPRAZOLE 20 MG CAP PO SCH (08:12)
[2018-10-19] MEDS: ASPIRIN 325 MG TAB PO SCH (08:12)
[2018-10-19] MEDS: glipiZIDE (GLUCOTROL) 5 MG TAB PO SCH (08:13)
[2018-10-19] MEDS: OXcarbazepine 300 MG TAB PO SCH (08:13)
[2018-10-19] MEDS: GABAPENTIN 300 MG CAP PO SCH (08:13)
[2018-10-19] MEDS: FLUoxetine 20 MG CAP PO SCH (08:14)
[2018-10-19 08:17] VITALS: BP 167/79
--- NOTE | 2018-10-19 08:42 | ECHO ---
DATE OF STUDY: 10/18/2018 REFERRING PHYSICIAN: Dr. Margo Hanson INDICATION: Chest pain, unspecified. HEIGHT: 183 cm. WEIGHT: 126 kg. 2D MEASUREMENTS: Left ventricle diastole: 5.2 cm Ventricular septum: 1.08 cm Posterior wall: 1.08 cm Left atrium: 4.3 cm Aortic annulus: 2.1 cm Proximal ascending aorta: 2.7 cm Inferior vena cava: 2.0 cm (more than 50% respiratory variation) DOPPLER MEASUREMENTS: Aortic valve velocity: 151 cm/s LVOT velocity: 106 cm/s LVOT VTI: 26.1 cm Mitral E velocity: 56.2 cm/s Mitral A velocity: 75.3 cm/s Mitral deceleration time: 261 ms Trace tricuspid regurgitation. Trace pulmonic regurgitation. Pulmonary artery systolic pressure: 22 mmHg MITRAL ANNULAR TISSUE DOPPLER: E prime septal: 5.7 cm/s E prime lateral: 7.5 cm/s DESCRIPTION: Rhythm was sinus bradycardia. Image quality was fair. This was a 2D, M-mode, color flow Doppler, and pulse wave Doppler examination including mitral annular tissue Doppler. CONCLUSIONS: 1. Normal left ventricle internal dimensions and wall thickness. Normal regional left ventricular (LV) wall motion and wall thickening. Normal LV systolic function. Left ventricular ejection fraction (LVEF) 60% by visual estimate. Grade 1 LV diastolic dysfunction (impaired relaxation filling pattern). 2. Mild left atrial dilatation. 3. Mild aortic valve sclerosis of a three-cusp aortic valve. No aortic regurgitation. 4. Normal right ventricle size and systolic function. Normal pulmonary artery systolic pressure. Normal central venous pressure (5-10 mmHg). 5. Tiny pericardial effusion.
[2018-10-19] MEDS ORDERED: LOSARTAN 50 MG TAB PO SCH (09:00)
[2018-10-19] MEDS: MAGNESIUM OXIDE 400 MG TAB (MAG-OX) PO SCH (09:00)
--- NOTE | 2018-10-19 11:45 | DS.PDOC ---
Discharge Summary General Date of Admission Oct 17, 2018 at 20:59 Date of Discharge 10/19/2018 Discharge Summary PROCEDURES PERFORMED DURING STAY: None. ADMITTING DIAGNOSES: 1. Chest pain DISCHARGE DIAGNOSES: 1. Chest pain/angina COMPLICATIONS/CHIEF COMPLAINT: Chest Pain, HISTORY OF PRESENT ILLNESS: 68-year-old male with a history of diabetes, hypertension and hyperlipidemia. Patient developed sharp chest pain, lower right chest on a scale of 4-6/10 for the past 3 days on and off. Patient has been having shortness of breath on exertion for a while before the chest pain. He also complained of some left knee and hip secondary to arthritis. Patient was given 3 nitroglycerin and 4 baby aspirin HOSPITAL COURSE: Patient was admitted for chest pain and to rule out ACS. Patient's troponin was negative and his EKG did not show any acute ischemic changes. Patient's symptoms resolved on his own. Upon further questioning patient said that his chest pain started after he received the news off his grandson being incarcerated. Patient currently has no complaints ultrasound Doppler was negative for DVT he has no tachycardia or hypoxia to be concerned about PE. He is medically stable to be discharged. Patient however will benefit from cardiac stress test and cardiac cardiology follow-up. Patient was given instructions to call his PCP and to make an appointment with his information engineer within 1 week. DISCHARGE MEDICATIONS: Please see below. ALLERGIES: Please see below. PHYSICAL EXAMINATION ON DISCHARGE: GENERAL APPEARANCE: morbidly obese male, in no acute distress. VITAL SIGNS:reviewed HEENT: Normocephalic and atraumatic. No scleral icterus. PERRLA. Oropharynx is clear. Mouth revealed good dentition LUNGS: Breath sounds are equal and clear bilaterally. No wheezes, rhonchi, or rales. HEART: Regular rate and rhythm with normal S1 and S2. No murmurs, gallops, or rubs. ABDOMEN: Soft, flat, and benign. No mass, tenderness, guarding, or rebound. Bowel sounds are present. EXTREMITIES: No cyanosis, clubbing, or edema. NEUROLOGIC: No focal sensory or motor deficits are noted. Gait is normal. Cranial nerves II through XII are intact. PSYCHIATRIC: The patient is awake, alert, and oriented x3. Recent and remote memory is intact. Appropriate mood and affect. SKIN: Warm, dry, and well perfused. Good turgor. No lesions, nodules or rashes are noted. LYMPHATICS: No cervical, axillary, adenopathy is noted. LABORATORY DATA: Please see below. ACTIVITY: As tolerated. DIET: Low sodium DISCHARGE PLAN: DISCHARGE CONDITION: Stable. TIME SPENT ON DISCHARGE: Greater than 34 minutes. Vital Signs/I&Os Vital Signs Date Time Temp Pulse Resp B/P (MAP) Pulse Ox O2 Delivery O2 Flow Rate FiO2 10/19/18 08:17 167/79 10/19/18 06:00 96.9 68 18 96 10/17/18 22:15 Room Air I&O- Last 24 Hours up to 6 AM 10/19/18 06:00 Intake Total 2660 ml Output Total 2675 ml Balance -15 ml Laboratory Data Labs 24H Laboratory Tests 2 10/18/18 16:44: Bedside Glucose (Misc Panel) 158H 10/18/18 18:47: Whole Blood Ionized Calcium 4.5, Magnesium Level 2.5H 10/18/18 20:12: Bedside Glucose (Misc Panel) 162H 10/19/18 05:44: Bedside Glucose (Misc Panel) 146H 10/19/18 06:21: Estimated Mean Plasma Glucose 171H, Hemoglobin A1c 7.6, Triglycerides Level 153H, LDL Cholesterol 71, Total Cholesterol 150, Non-HDL Cholesterol (LDL + VLDL) 102, Total HDL Cholesterol 48, Cholesterol/HDL Ratio 3.125 FSBS Laboratory Tests Test 10/18/18 16:44 10/18/18 20:12 10/19/18 05:44 Range/Units Bedside Glucose (Misc Panel) 158 162 146 80-115 MG/DL Discharge Medications Scheduled Calcium Carbonate (Tums) 500 Mg Chw, 500 MG PO DAILY, (Reported) Calcium Carbonate (Calcium) 500 Mg Tablet, 500 MG PO DAILY, (Reported) Donepezil HCl (Donepezil HCl) 10 Mg Tablet, 10 MG PO QHS, (Reported) Dulaglutide (Trulicity) 1.5 Mg/0.5 Ml Pen.injctr, 1.5 MG SC QWEEK, (Reported) TUESDAYS Ergocalciferol (Vitamin D2) (Vitamin D2) 50,000 Unit Capsule, 50,000 UNIT PO QWEEK, (Reported) TUESDAYS Fexofenadine HCl (Kristen Allergy) 180 Mg Tablet, 180 MG PO DAILY, (Reported) Flaxseed/Omega3,6,9/Fatty Acid (Flax Seed Oil 1,300 mg Softgel) 1 Each Capsule, 1 CAP PO DAILY, (Reported) Fluoxetine Hcl (Fluoxetine HCl) 20 Mg Cap, 20 MG PO QHS, (Reported) Fluoxetine Hcl (Fluoxetine HCl) 40 Mg Cap, 40 MG PO QAM, (Reported) Fluticasone/Vilanterol (Breo Ellipta 100-25 Mcg INH) 1 Each Blst.w.dev, 1 PUFF INH DAILY, (Reported) Gabapentin (Gabapentin) 300 Mg Cap, 300 MG PO TID, (Reported) Glipizide (Glipizide) 5 Mg Tablet, 2.5 MG PO DAILY, (Reported) Latanoprost (Xalatan) 0.005 % Uzma, 1 DROP OU QHS, (Reported) Lorazepam (Ativan) 0.5 Mg Tab, 0.5 MG PO QHS, (Reported) Losartan Potassium (Losartan Potassium) 50 Mg Tab, 50 MG PO DAILY, (Reported) Fertile-3 Fatty Acids/Fish Oil (Fish Oil 1,000 mg Capsule) 1 Each Capsule, 1,000 MG PO BID, (Reported) Omeprazole (Omeprazole) 40 Mg Cap, 40 MG PO BID, (Reported) Oxcarbazepine (Oxcarbazepine) 300 Mg Tab, 600 MG PO BID, (Reported) Pramipexole Di-HCl (Mirapex) 0.125 Mg Tablet, 0.125 MG PO QHS, (Reported) Quetiapine Fumarate (Quetiapine Fumarate) 100 Mg Tab, 100 MG PO QHS, (Reported) Simvastatin (Zocor) 20 Mg Tab, 20 MG PO QHS, (Reported) Tamsulosin HCl (Flomax) 0.4 Mg Cap, 0.4 MG PO DAILY, (Reported) Vitamin D (Vitamin D3) 1,000 Unit Tablet, 1,000 UNITS PO DAILY, (Reported) Scheduled PRN Albuterol Sulf (Albuterol Sulfate) 2.5 Mg/3 Ml Nebu, 2.5 MG INH Q4H PRN for SHORTNESS OF BREATH, (Reported) Fluticasone Propionate (Flonase Allergy Relief) 50 Mcg/Act Spr, 1 SPRAY NARES DAILY PRN for NASAL CONGESTION, (Reported) Ibuprofen (Ibuprofen) 600 Mg Tablet, 600 MG PO BID PRN for PAIN, (Reported) Lorazepam (Lorazepam) 0.5 Mg Tablet, 0.5 MG PO DAILY PRN for ANXIETY/AGITATION, (Reported) Meclizine HCl (Meclizine HCl) 25 Mg Tab, 25 MG PO TIDP PRN for DIZZINESS, (Reported) Nitroglycerin (Nitrostat) 0.4 Mg Subl, 0.4 MG SL NITRO PRN for CHEST PAIN, (Reported) Tetrahydroz/Dext 70/Peg 400/Pv (Eye Drops) 15 Ml Drops, 1 ROXANN OU QHS PRN for DRY EYES, (Reported) Trazodone HCl (Trazodone HCl) 150 Mg Tab, 75 MG PO QHS PRN for SLEEP, (Reported) Allergies Coded Allergies: Penicillins (Verified Allergy, Severe, ANAPHYLAXIS, 06/20/18) divalproex sodium (Verified Allergy, Intermediate, GI, 10/17/18) "DEATHLY SICK" diclofenac (Verified Allergy, Unknown, 06/20/18) Contrast Media (Verified Adverse Reaction, Severe, DIZZINESS CONFUSION UNRESPONSIVENESS, 06/20/18) Cephalosporins (Verified Adverse Reaction, Mild, GI, 06/20/18) Sulfa (Sulfonamide Antibiotics) (Verified Adverse Reaction, Mild, GI, 06/20/18) cetirizine (Verified Adverse Reaction, Mild, REACTED WITH OTHER MEDS, 06/20/18) doxycycline (Verified Adverse Reaction, Mild, GI, 06/20/18) valproic acid (Verified Adverse Reaction, Mild, N/V, 06/20/18) MARY STEPHENS MD Oct 19, 2018 11:45
--- NOTE | 2018-10-20 07:50 | REP ---
Clinical: Acute chest pain. Technique: Axial noncontrast images from the thoracic inlet to the upper abdomen with coronal and sagittal re-formations. Findings: Mild bibasilar fibro atelectatic changes (left greater than right) noted along with very small area of linear scarring at the lingula. No significant consolidation. No effusion. No pneumothorax. No significant adenopathy. The mediastinum demonstrates minimal atherosclerotic changes to the thoracic aorta and coronary arteries without aortic aneurysm. The heart is minimally enlarged. No pericardial effusion. Musculoskeletal structures demonstrate age-related changes without focal osseous abnormality. Limited upper abdomen suggests small amount of layering gravel in the gallbladder and right upper pole renal cyst. Impression: 1. Very minimal bibasilar atelectasis. Electronically Signed by Dean Huber MD 10/18/2018 08:52 A
== END 2018-10-19 12:56 | disposition home or self-care (01) | DRG 311 ==
LOC: M ED 17:09 → M ED INP 20:59 → M MSPAV 22:49
PROVIDERS: ADMIT Internal Medicine Nephrology; ATTEND Hospitalist
DX: I20.9 Angina pectoris, unspecified (principal); E66.2 Morbid (severe) obesity with alveolar hypoventilation; E11.40 Type 2 diabetes mellitus with diabetic neuropathy, unspecified; I10 Essential (primary) hypertension; E78.5 Hyperlipidemia, unspecified; Z79.899 Other long term (current) drug therapy; Z88.0 Allergy status to penicillin; Z88.8 Allergy status to other drugs, medicaments and biological substances; Z88.2 Allergy status to sulfonamides; Z91.041 Radiographic dye allergy status; G40.909 Epilepsy, unspecified, not intractable, without status epilepticus; M19.90 Unspecified osteoarthritis, unspecified site; G25.81 Restless legs syndrome; F32.9 Major depressive disorder, single episode, unspecified; R26.89 Other abnormalities of gait and mobility; J45.909 Unspecified asthma, uncomplicated; Z79.4 Long term (current) use of insulin

== ENCOUNTER → 2018-11-26 | Outpatient (CLI) | payer MEDICARE, MEDICAID ==
[~2018-11-26] MED LIST changes: +ALLE180T33 PO; +BREO1INH INH; +CHOL100029 PO; +DONE10TA90 PO; +EYEDRO5 OU; +FISH1000 PO; +FLAX1300 PO; +GLIP5TAB8 PO; +IBUP1TAB6 PO; +LORA0.5T11 PO; +MIRA0.12 PO; +OYST1TAB PO; +TRUL0.5I SC; +VITA500045 PO
--- NOTE | 2018-11-26 18:25 | REP ---
Left knee series: Six views: History: Left lateral knee pain. Comparison study: June 06 1018. Findings: There is patellofemoral spur on the lateral film. This was seen previously. There is medial compartment and some lateral compartment osteoarthritic spurring as well unchanged from the comparison study. There is diffuse osteopenia. Impression: Three compartment osteoarthritic spurring. No radiographic change from comparison study. Electronically Signed by Justice Finnegan MD 11/27/2018 07:51 A
== END ==
LOC: M ADAMS 15:47
PROVIDERS: ATTEND Nurse Practitioner Family
DX: M17.12 Unilateral primary osteoarthritis, left knee (principal); M85.88 Other specified disorders of bone density and structure, other site; M25.562 Pain in left knee
CPT/HCPCS: 73564; G0463

== ENCOUNTER → 2018-12-02 | Outpatient (REF) | payer MEDICARE, MEDICAID ==
[2018-12-02 13:08] LABS: ALBUMIN 3.2 GM/DL (3.2-5.2); ALT/SGPT 40 U/L (12-78); BILIRUBIN,TOTAL 0.2 MG/DL (0.2-1.0); BLOOD UREA NITROGEN 24 MG/DL (7-18); CALCIUM LEVEL 8.9 MG/DL (8.8-10.2); CARBON DIOXIDE LEVEL 27 MEQ/L (21-32); CHLORIDE LEVEL 106 MEQ/L (98-107); CHOLESTEROL LEVEL 143 MG/DL (<200); CHOLESTEROL RISK RATIO 2.803 (<5); CREATININE FOR GFR 1.21 MG/DL (0.70-1.30); FREE T4 0.74 NG/DL (0.76-1.46); GLOMERULAR FILTRATION RATE > 60.0 (>49); GLUCOSE, FASTING 159 MG/DL (70-100); HDL CHOLESTEROL 51 MG/DL (>40); LDL CHOLESTEROL 55 MG/DL (<100); NON-HDL-C 92 MG/DL; POTASSIUM SERUM 4.4 MEQ/L (3.5-5.1); SODIUM LEVEL 140 MEQ/L (136-145); TOTAL PROTEIN 6.8 GM/DL (6.4-8.2); TRIGLYCERIDES LEVEL 186 MG/DL (<150)
[2018-12-02 13:10] LABS: HEMOGLOBIN A1c 7.1 %
[2018-12-03 14:04] LABS: MALB URINE SIEMENS 76.3 MG/L; MAU/CREAT RATIO 70.6 MCG/MG (0.0-30.0)
== END ==
LOC: M SFHCADAM 07:46
PROVIDERS: ATTEND Nurse Practitioner Family
DX: E11.69 Type 2 diabetes mellitus with other specified complication (principal); E78.2 Mixed hyperlipidemia

== ENCOUNTER → 2018-12-04 | Outpatient (REF) | payer MEDICARE, MEDICAID ==
[2018-12-05 14:26] LABS: PSA TOTAL 3.2 ng/mL (0.0-4.0)
== END ==
LOC: M SFHCADAM 08:15
PROVIDERS: ATTEND Nurse Practitioner Family
DX: R97.20 Elevated prostate specific antigen [PSA] (principal)
CPT/HCPCS: 51798; 84154; 99490; G0463

== ENCOUNTER 2019-02-05 16:09 | Emergency (ER) | payer MEDICARE, MEDICAID ==
[~2019-02-05] VITALS: Ht 182.9 cm; Wt 276.0 kg
[~2019-02-05 16:09] MED LIST changes: -OMEP40CA2; -OMEP40CA2 PO; +OMEP40CA97; +OMEP40CA97 PO
[2019-02-05] MEDS ORDERED: CIPR500T3 PO (16:43)
[2019-02-05] MEDS ORDERED: TRAZ150T90 PO (16:43)
[2019-02-05] MEDS ORDERED: FISH1000 PO (16:43)
[2019-02-05] MEDS ORDERED: PROA1AER2 INH (16:43)
[2019-02-05] MEDS ORDERED: SYMB16INH INH (16:43)
[2019-02-05] MEDS ORDERED: OXCA300T14 PO (16:43)
[2019-02-05] MEDS ORDERED: FEXO60TA71 PO (16:43)
[2019-02-05] MEDS ORDERED: OMEP40CA97 PO (16:43)
--- NOTE | 2019-02-05 16:52 | REP ---
Two-view chest: 02/05/2019. Indication: Chest pain. Comparison: CT dated 10/18/2018. Findings: The lungs are clear. There is no significant pleural effusion or pneumothorax. Cardiac silhouette is mildly enlarged. Degenerative sequelae of the thoracic spine are present. Impression: No acute cardiopulmonary process. Electronically Signed by Madi Barbosa DO 02/05/2019 04:44 P
[2019-02-05 17:16] LABS: BASO % 0.5 % (0.0-1.0); EOS # 0.2 10^3/uL (0.0-0.5); EOS % 2.7 % (0.0-3.0); HEMATOCRIT 39.2 % (42.0-52.0); HEMOGLOBIN 12.9 g/dl (13.5-17.5); LYMPH % 33.4 % (24.0-44.0); MEAN CORPUSCULAR HEMOGLOBIN 31.3 pg (27.0-33.0); MEAN CORPUSCULAR HGB CONC 32.9 g/dl (32.0-36.5); MEAN CORPUSCULAR VOLUME 95.1 fl (80.0-96.0); MONO # 0.7 10^3/uL (0.0-0.8); NEUTROPHILS # 4.8 10^3/uL (1.5-8.5); NEUTROPHILS % 54.7 % (36.0-66.0); PLATELET COUNT, AUTOMATED 231 10^3/uL (150-450); RED BLOOD COUNT 4.12 10^6/uL (4.30-6.10); WHITE BLOOD COUNT 8.8 10^3/uL (4.0-10.0)
[2019-02-05 17:21] LABS: INR 1.13; PROTHROMBIN TIME 14.2 SECONDS (11.8-14.0)
[2019-02-05 17:31] LABS: PARTIAL THROMBOPLASTIN TIME 30.8 SECONDS (25.0-38.4)
[2019-02-05 17:45] LABS: ALBUMIN 3.3 GM/DL (3.2-5.2); ALT/SGPT 49 U/L (12-78); BILIRUBIN,DIRECT < 0.1 MG/DL (0.0-0.2); BILIRUBIN,TOTAL 0.3 MG/DL (0.2-1.0); BLOOD UREA NITROGEN 22 MG/DL (7-18); CALCIUM LEVEL 8.9 MG/DL (8.8-10.2); CARBON DIOXIDE LEVEL 28 MEQ/L (21-32); CHLORIDE LEVEL 105 MEQ/L (98-107); CK-MB VALUE MASS 1.4 NG/ML (<3.6); CPK CREATINE PHOSPHOKINASE 149 U/L (39-308); CREATININE FOR GFR 1.26 MG/DL (0.70-1.30); GLOMERULAR FILTRATION RATE > 60.0 (>49); GLUCOSE, FASTING 110 MG/DL (70-100); LIPASE 318 U/L (73-393); MAGNESIUM LEVEL 1.9 MG/DL (1.8-2.4); MB/CK RELATIVE INDEX 0.94 (< OR =4); PHOSPHORUS LEVEL 3.3 MG/DL (2.5-4.9); POTASSIUM SERUM 4.3 MEQ/L (3.5-5.1); SODIUM LEVEL 139 MEQ/L (136-145); TOTAL PROTEIN 7.3 GM/DL (6.4-8.2); TROPONIN I < 0.02 NG/ML (< 0.10)
[2019-02-05 22:41] LABS: CK-MB VALUE MASS 1.3 NG/ML (<3.6); CPK CREATINE PHOSPHOKINASE 134 U/L (39-308); MB/CK RELATIVE INDEX 0.97 (< OR =4); TROPONIN I < 0.02 NG/ML (< 0.10)
[2019-02-05 23:01] VITALS: BP 157/80
--- NOTE | 2019-02-06 13:06 | ECGEPIP ---
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
--- NOTE | 2019-02-06 13:11 | ECGEPIP ---
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
== END 2019-02-05 23:14 | disposition home or self-care (01) ==
LOC: M ED 16:09
DX: R20.9 Unspecified disturbances of skin sensation (principal); R07.9 Chest pain, unspecified; I45.89 Other specified conduction disorders; I50.9 Heart failure, unspecified; E11.9 Type 2 diabetes mellitus without complications; I10 Essential (primary) hypertension; N18.9 Chronic kidney disease, unspecified; E78.5 Hyperlipidemia, unspecified; M10.9 Gout, unspecified; Z87.820 Personal history of traumatic brain injury; M19.90 Unspecified osteoarthritis, unspecified site; G89.29 Other chronic pain; M54.9 Dorsalgia, unspecified; F43.10 Post-traumatic stress disorder, unspecified; F32.9 Major depressive disorder, single episode, unspecified; E66.9 Obesity, unspecified; G47.30 Sleep apnea, unspecified; G40.909 Epilepsy, unspecified, not intractable, without status epilepticus; J45.909 Unspecified asthma, uncomplicated; G25.81 Restless legs syndrome; Z79.899 Other long term (current) drug therapy; Z88.8 Allergy status to other drugs, medicaments and biological substances; Z91.041 Radiographic dye allergy status; Z88.0 Allergy status to penicillin; Z88.2 Allergy status to sulfonamides; Z88.1 Allergy status to other antibiotic agents

== ENCOUNTER → 2019-03-05 | Outpatient (REF) | payer MEDICARE, MEDICAID ==
[~2019-03-05] MED LIST changes: +CIPR500T3 PO; +FEXO60TA71 PO; +FLUO20CA20 PO; -FLUO20CA8 PO; +PROA1AER2 INH; -SIMV20TA2; +SIMV20TA22; +TRAZ150T90 PO
[2019-03-05 12:59] LABS: ALBUMIN 3.3 GM/DL (3.2-5.2); ALT/SGPT 31 U/L (12-78); BILIRUBIN,TOTAL 0.4 MG/DL (0.2-1.0); BLOOD UREA NITROGEN 17 MG/DL (7-18); CALCIUM LEVEL 8.7 MG/DL (8.8-10.2); CARBON DIOXIDE LEVEL 30 MEQ/L (21-32); CHLORIDE LEVEL 104 MEQ/L (98-107); CREATININE FOR GFR 1.26 MG/DL (0.70-1.30); GLOMERULAR FILTRATION RATE > 60.0 (>49); GLUCOSE, FASTING 156 MG/DL (70-100); POTASSIUM SERUM 4.3 MEQ/L (3.5-5.1); PROSTATIC SPECIFIC AG MONITOR 4.51 NG/ML (< 4.00); SODIUM LEVEL 139 MEQ/L (136-145)
[2019-03-05 13:04] LABS: TOTAL 25(OH) VITAMIN D 38.9 NG/ML (30.0-100.0)
[2019-03-05 13:29] LABS: MALB URINE SIEMENS 39.5 MG/L; MAU/CREAT RATIO 28.6 MCG/MG (0.0-30.0)
[2019-03-05 13:52] LABS: HEMOGLOBIN A1c 7.4 %
== END ==
LOC: M SFHCPLAZ 07:54
PROVIDERS: ATTEND Nurse Practitioner Family
DX: E11.69 Type 2 diabetes mellitus with other specified complication (principal); E55.9 Vitamin D deficiency, unspecified; R97.20 Elevated prostate specific antigen [PSA]; Z79.51 Long term (current) use of inhaled steroids; Z79.899 Other long term (current) drug therapy

== ENCOUNTER → 2019-03-26 | Outpatient (REF) | payer MEDICARE, MEDICAID ==
[~2019-03-26] MED LIST changes: -LORA0.5T11 PO; +LORA0.5T5 PO
== END ==
LOC: M SMT 13:18
PROVIDERS: ATTEND Nurse Practitioner Family
DX: R97.20 Elevated prostate specific antigen [PSA] (principal)
CPT/HCPCS: 51798; 87186; G0463

== ENCOUNTER 2019-04-01 14:13 | Outpatient (CLI) | payer MEDICARE, MEDICAID ==
[~2019-04-01] VITALS: Ht 182.9 cm; Wt 125.5 kg
[2019-04-01 14:45] VITALS: BP 140/84
[2019-04-01] MEDS ORDERED: ERTAPENEM 1 GM INJ (INVanz) (J1335) IM ONE (15:00)
[2019-04-01] MEDS ORDERED: LIDOCAINE 1% SDV 5 ML VIAL IM ONE (15:45)
[2019-04-01 16:20] VITALS: BP 157/79
[2019-04-01 16:40] VITALS: BP 155/84
== END 2019-04-01 16:40 | disposition home or self-care (01) ==
LOC: M INFU 14:13
PROVIDERS: ATTEND Nurse Practitioner Family
DX: N39.0 Urinary tract infection, site not specified (principal); Z88.1 Allergy status to other antibiotic agents; Z91.041 Radiographic dye allergy status; Z88.0 Allergy status to penicillin; Z88.2 Allergy status to sulfonamides
CPT/HCPCS: 96372; J1335

== ENCOUNTER 2019-04-02 12:40 | Outpatient (CLI) | payer MEDICARE, MEDICAID ==
[~2019-04-02] VITALS: Ht 182.9 cm; Wt 125.5 kg
[2019-04-02] MEDS ORDERED: ERTAPENEM 1 GM INJ (INVanz) (J1335) IM ONE (13:00)
[2019-04-02] MEDS ORDERED: LIDOCAINE 1% SDV 5 ML VIAL IM ONE (13:00)
[2019-04-02] MEDS ORDERED: LIDOCAINE 1% MDV 20ML VIAL IM ONE (13:00)
[2019-04-02 13:05] VITALS: BP 159/83
[2019-04-02 13:36] VITALS: BP 139/81
[2019-04-02 14:00] VITALS: BP 139/87
== END 2019-04-02 14:00 | disposition home or self-care (01) ==
LOC: M INFU 12:40
PROVIDERS: ATTEND Nurse Practitioner Family
DX: N39.0 Urinary tract infection, site not specified (principal); Z88.1 Allergy status to other antibiotic agents; Z91.041 Radiographic dye allergy status; Z88.0 Allergy status to penicillin; Z88.2 Allergy status to sulfonamides
CPT/HCPCS: 96372; J1335

== ENCOUNTER 2019-04-03 13:01 | Outpatient (CLI) | payer MEDICARE, MEDICAID ==
[~2019-04-03] VITALS: Ht 188 cm; Wt 125.5 kg
[~2019-04-03 13:01] MED LIST changes: +ERTAPENEM 1 GM INJ (INVanz) (J1335) IM ONE; +LIDOCAINE 1% SDV 5 ML VIAL XX ONE
[2019-04-03 13:14] VITALS: BP 168/84
[2019-04-03 13:56] VITALS: BP 156/84
== END 2019-04-03 13:55 | disposition home or self-care (01) ==
LOC: M INFU 13:01
PROVIDERS: ATTEND Nurse Practitioner Family
DX: N39.0 Urinary tract infection, site not specified (principal); Z88.0 Allergy status to penicillin; Z88.1 Allergy status to other antibiotic agents; Z88.2 Allergy status to sulfonamides; Z91.041 Radiographic dye allergy status
CPT/HCPCS: 96372; J1335

== ENCOUNTER 2019-04-04 09:09 | Outpatient (CLI) | payer MEDICARE, MEDICAID ==
[~2019-04-04] VITALS: Ht 182.9 cm; Wt 125.5 kg
[~2019-04-04 09:09] MED LIST changes: -ERTAPENEM 1 GM INJ (INVanz) (J1335) IM ONE; -LIDOCAINE 1% SDV 5 ML VIAL XX ONE
[2019-04-04 09:45] VITALS: BP 168/95
[2019-04-04] MEDS ORDERED: LIDOCAINE 1% SDV 5 ML VIAL IM ONE (10:00)
[2019-04-04] MEDS ORDERED: ERTAPENEM 1 GM INJ (INVanz) (J1335) IM ONE (10:00)
== END 2019-04-04 10:16 | disposition home or self-care (01) ==
LOC: M OPCLI5PR 09:09 → M MS5PR 09:11 → M OPCLI5PR 10:16
PROVIDERS: ATTEND Nurse Practitioner Family
DX: N39.0 Urinary tract infection, site not specified (principal); Z88.0 Allergy status to penicillin; Z88.1 Allergy status to other antibiotic agents; Z88.2 Allergy status to sulfonamides; Z91.041 Radiographic dye allergy status
CPT/HCPCS: 96372; J1335

== ENCOUNTER 2019-04-05 09:14 | Outpatient (CLI) | payer MEDICARE, MEDICAID ==
[~2019-04-05] VITALS: Ht 182.9 cm; Wt 125.5 kg
[2019-04-05 09:35] VITALS: BP 160/79
[2019-04-05] MEDS ORDERED: ERTAPENEM 1 GM INJ (INVanz) (J1335) IM ONE (10:00)
[2019-04-05] MEDS ORDERED: LIDOCAINE 1% SDV 5 ML VIAL IM ONE (10:00)
== END 2019-04-05 10:35 | disposition home or self-care (01) ==
LOC: M OPCLI5PR 09:14 → M MS5PR 09:17 → M OPCLI5PR 10:35
PROVIDERS: ATTEND Nurse Practitioner Family
DX: N39.0 Urinary tract infection, site not specified (principal); Z88.0 Allergy status to penicillin; Z88.1 Allergy status to other antibiotic agents; Z88.2 Allergy status to sulfonamides; Z91.041 Radiographic dye allergy status
CPT/HCPCS: 96372; J1335

== ENCOUNTER 2019-04-06 13:01 | Outpatient (CLI) | payer MEDICARE, MEDICAID ==
[~2019-04-06] VITALS: Ht 182.9 cm; Wt 125.5 kg
[2019-04-06 13:10] VITALS: BP 154/79
[2019-04-06] MEDS ORDERED: ERTAPENEM 1 GM INJ (INVanz) (J1335) IM ONE (14:00)
[2019-04-06] MEDS ORDERED: LIDOCAINE 1% SDV 5 ML VIAL IM ONE (14:00)
[2019-04-06 14:20] VITALS: BP 155/73
== END 2019-04-06 14:20 | disposition home or self-care (01) ==
LOC: M INFU 13:01
PROVIDERS: ATTEND Nurse Practitioner Family
DX: N39.0 Urinary tract infection, site not specified (principal); Z88.0 Allergy status to penicillin; Z88.1 Allergy status to other antibiotic agents; Z88.2 Allergy status to sulfonamides; Z91.041 Radiographic dye allergy status
CPT/HCPCS: 96372; J1335

== ENCOUNTER 2019-04-07 13:00 | Outpatient (CLI) | payer MEDICARE, MEDICAID ==
[~2019-04-07] VITALS: Ht 177.8 cm; Wt 125.5 kg
[2019-04-07 13:12] VITALS: BP 147/83
[2019-04-07] MEDS ORDERED: ERTAPENEM 1 GM INJ (INVanz) (J1335) IM ONE (13:30)
[2019-04-07] MEDS ORDERED: LIDOCAINE 1% SDV 5 ML VIAL IM ONE (13:30)
[2019-04-07 13:32] VITALS: BP 141/81
== END 2019-04-07 13:30 | disposition home or self-care (01) ==
LOC: M INFU 13:00
PROVIDERS: ATTEND Nurse Practitioner Family
DX: N39.0 Urinary tract infection, site not specified (principal); Z88.0 Allergy status to penicillin; Z88.1 Allergy status to other antibiotic agents; Z88.2 Allergy status to sulfonamides; Z91.041 Radiographic dye allergy status
CPT/HCPCS: 96372; J1335

== ENCOUNTER → 2019-04-27 | Outpatient (CLI) | payer MEDICARE, MEDICAID ==
[~2019-04-27] MED LIST changes: -FLUO20CA19; +FLUO20CA22; +QUET100T2; +QUET100T2 PO; -QUET1TAB8; -QUET1TAB8 PO
--- NOTE | 2019-04-27 10:13 | REP ---
Clinical: Right inguinal pain. History of hernia. Technique: Real time miranda scale ultrasound examination using linear high frequency transducer. Findings: Ultrasound examination of the bilateral groin demonstrates normal findings and no evidence for inguinal hernia. No abnormal fluid collection or mass lesion. Impression: Normal examination. No evidence for inguinal hernia. Electronically Signed by Dean Huber MD 04/27/2019 10:04 A
== END ==
LOC: M RAD 09:15
PROVIDERS: ATTEND Nurse Practitioner Family
DX: R10.31 Right lower quadrant pain (principal)

== ENCOUNTER → 2019-05-04 | Outpatient (REF) | payer MEDICARE, MEDICAID | LOC: M SFHCADAM 08:46 | PROVIDERS: ATTEND Nurse Practitioner Family | DX: R97.20 Elevated prostate specific antigen [PSA] (principal) ==

== ENCOUNTER → 2019-05-05 | Outpatient (REF) | payer MEDICARE, MEDICAID ==
[2019-05-05 13:32] LABS: APPEARANCE, URINE TURBID (CLEAR); BACTERIA, URINE AUTO 3+ (NEGATIVE); BILIRUBIN, URINE AUTO NEGATIVE (NEGATIVE); BLOOD, URINE BLOOD NEGATIVE (NEGATIVE); COLOR, URINE YELLOW (YELLOW); GLUCOSE, URINE (UA) AUTO 1+ mg/dL (NEGATIVE); KETONE, URINE AUTO NEGATIVE (NEGATIVE); LEUKOCYTE ESTERASE, URINE AUTO NEGATIVE (NEGATIVE); MUCUS, URINE MODERATE (NEGATIVE); NITRITE, URINE AUTO NEGATIVE (NEGATIVE); PROTEIN, URINE AUTO 1+ mg/dL (NEGATIVE); RBC, URINE AUTO 0 /HPF (0-3); SPECIFIC GRAVITY URINE AUTO 1.028 (1.002-1.035); SQUAMOUS EPITHELIAL CELL UR AU 0 /HPF (0-6); UROBILINOGEN, URINE AUTO 0.2 mg/dL (0.0-2.0); WBC, URINE AUTO 1 /HPF (0-3)
== END ==
LOC: M SMT 12:35
PROVIDERS: ATTEND Nurse Practitioner Family
DX: N39.0 Urinary tract infection, site not specified (principal)

== ENCOUNTER → 2019-06-10 | Outpatient (CLI) | payer MEDICARE, MEDICAID ==
[2019-06-10 13:35] LABS: BASO % 0.4 % (0.0-1.0); EOS # 0.2 10^3/uL (0.0-0.5); EOS % 3.4 % (0.0-3.0); HEMATOCRIT 39.5 % (42.0-52.0); LYMPH # 2.4 10^3/uL (1.5-5.0); LYMPH % 34.3 % (24.0-44.0); MEAN CORPUSCULAR HEMOGLOBIN 30.7 pg (27.0-33.0); MEAN CORPUSCULAR HGB CONC 32.9 g/dl (32.0-36.5); MEAN CORPUSCULAR VOLUME 93.2 fl (80.0-96.0); MONO # 0.5 10^3/uL (0.0-0.8); MONO % 6.9 % (0.0-5.0); NEUTROPHILS # 3.8 10^3/uL (1.5-8.5); NEUTROPHILS % 54.4 % (36.0-66.0); PLATELET COUNT, AUTOMATED 227 10^3/uL (150-450); RED BLOOD COUNT 4.24 10^6/uL (4.30-6.10)
[2019-06-12 10:06] LABS: BLOOD UREA NITROGEN 21 MG/DL (7-18); CREATININE FOR GFR 1.23 MG/DL (0.70-1.30); GLOMERULAR FILTRATION RATE > 60.0 (>49); GLUCOSE, FASTING 191 MG/DL (70-100)
[2019-06-12 10:07] LABS: ALBUMIN 3.4 GM/DL (3.2-5.2); ALT/SGPT 36 U/L (12-78); BILIRUBIN,TOTAL 0.3 MG/DL (0.2-1.0); CARBON DIOXIDE LEVEL 30 mmol/L; CHLORIDE LEVEL 102 MEQ/L (98-107); POTASSIUM SERUM 4.2 MEQ/L (3.5-5.1); SODIUM LEVEL 136 MEQ/L (136-145); TOTAL PROTEIN 7.3 GM/DL (6.4-8.2)
[2019-06-13 00:06] LABS: OXCARBAZEPINE 28 ug/mL (10-35)
== END ==
LOC: M PLALAB 11:11
PROVIDERS: ATTEND Psychiatry & Neurology Neurology
DX: R56.9 Unspecified convulsions (principal)

== ENCOUNTER → 2019-06-10 | Outpatient (REF) | payer MEDICARE, MEDICAID ==
[2019-06-10 13:57] LABS: ALBUMIN 3.4 GM/DL (3.2-5.2); ALT/SGPT 36 U/L (12-78); BILIRUBIN,TOTAL 0.3 MG/DL (0.2-1.0); BLOOD UREA NITROGEN 21 MG/DL (7-18); CARBON DIOXIDE LEVEL 30 MEQ/L (21-32); CHLORIDE LEVEL 102 MEQ/L (98-107); CREATININE FOR GFR 1.23 MG/DL (0.70-1.30); GLOMERULAR FILTRATION RATE > 60.0 (>49); GLUCOSE, FASTING 191 MG/DL (70-100); POTASSIUM SERUM 4.2 MEQ/L (3.5-5.1); SODIUM LEVEL 136 MEQ/L (136-145); TOTAL PROTEIN 7.3 GM/DL (6.4-8.2)
[2019-06-10 14:05] LABS: TOTAL 25(OH) VITAMIN D 39.6 NG/ML (30.0-100.0)
== END ==
LOC: M SFHCPLAZ 11:10
PROVIDERS: ATTEND Nurse Practitioner Family
DX: E11.69 Type 2 diabetes mellitus with other specified complication (principal); E55.9 Vitamin D deficiency, unspecified; R56.9 Unspecified convulsions

== ENCOUNTER → 2019-07-14 | Outpatient (REF) | payer MEDICARE, MEDICAID | LOC: M LAB REF 18:07 | PROVIDERS: ATTEND Dermatology | DX: L57.0 Actinic keratosis (principal) | CPT/HCPCS: 11102; 88305; G0463 ==

== ENCOUNTER → 2019-08-12 | Outpatient (REF) | payer MEDICARE, MEDICAID ==
[2019-08-12 12:48] LABS: ALBUMIN 3.4 GM/DL (3.2-5.2); BILIRUBIN,TOTAL 0.3 MG/DL (0.2-1.0); CALCIUM LEVEL 8.6 MG/DL (8.8-10.2); CREATININE FOR GFR 1.3 MG/DL (0.70-1.30); GLOMERULAR FILTRATION RATE 58.3 (>49); POTASSIUM SERUM 4.7 MEQ/L (3.5-5.1); TOTAL PROTEIN 7.3 GM/DL (6.4-8.2)
[2019-08-12 13:18] LABS: HEMOGLOBIN A1c 7.6 %
== END ==
LOC: M SFHCADAM 10:17
PROVIDERS: ATTEND Nurse Practitioner Family
DX: E11.69 Type 2 diabetes mellitus with other specified complication (principal)

== ENCOUNTER → 2019-12-11 | Outpatient (REF) | payer MEDICARE, MEDICAID ==
[~2019-12-11] MED LIST changes: +ALLE1TAB23 PO; +CALC-211 PO; +D3 H10002 PO; +GENT1SOL16 OU; +GLIP5TAB20 PO; +KETO2SHA8; -KETO2SHA9; +MACR100C43 PO; +MAGN400T2 PO; +MED REC COMMENT; +PRAZ1CAP PO; +TRAZ-257 PO; +VITA50005 PO; +[UNRECOGNIZED DRUG - CODE] PO
[2019-12-11 14:04] LABS: APPEARANCE, URINE CLOUDY (CLEAR); BACTERIA, URINE AUTO 3+ (NEGATIVE); BILIRUBIN, URINE AUTO NEGATIVE (NEGATIVE); BLOOD, URINE BLOOD 1+ (NEGATIVE); COLOR, URINE YELLOW (YELLOW); GLUCOSE, URINE (UA) AUTO 3+ mg/dL (NEGATIVE); KETONE, URINE AUTO NEGATIVE (NEGATIVE); LEUKOCYTE ESTERASE, URINE AUTO 3+ (NEGATIVE); MUCUS, URINE SMALL (NEGATIVE); NITRITE, URINE AUTO POSITIVE (NEGATIVE); PROTEIN, URINE AUTO NEGATIVE (NEGATIVE); RBC, URINE AUTO 14 /HPF (0-3); RENAL EPITHELIAL CELLS 1 /HPF; SPECIFIC GRAVITY URINE AUTO 1.025 (1.002-1.035); SQUAMOUS EPITHELIAL CELL UR AU 1 /HPF (0-6); UROBILINOGEN, URINE AUTO 0.2 mg/dL (0.0-2.0); WBC, URINE AUTO TNTC /HPF (0-3)
== END ==
LOC: M SMT 13:27
PROVIDERS: ATTEND Nurse Practitioner Family
DX: N39.0 Urinary tract infection, site not specified (principal)

== ENCOUNTER → 2019-12-16 | Outpatient (REF) | payer MEDICARE, MEDICAID ==
[2019-12-16 14:00] LABS: ALBUMIN 3.4 GM/DL (3.2-5.2); BILIRUBIN,TOTAL 0.4 MG/DL (0.2-1.0); CALCIUM LEVEL 9.3 MG/DL (8.8-10.2); CREATININE FOR GFR 1.46 MG/DL (0.70-1.30); POTASSIUM SERUM 4.8 MEQ/L (3.5-5.1); TOTAL PROTEIN 7.3 GM/DL (6.4-8.2)
[2019-12-16 15:16] LABS: HEMOGLOBIN A1c 7.5 %
== END ==
LOC: M LABDRWAD 12:36
PROVIDERS: ATTEND Nurse Practitioner Family
DX: E11.42 Type 2 diabetes mellitus with diabetic polyneuropathy (principal); E78.2 Mixed hyperlipidemia

== ENCOUNTER 2019-12-31 12:54 | Observation (INO) | payer MEDICARE, MEDICAID ==
[~2019-12-31] VITALS: Ht 190.5 cm; Wt 130.3 kg
[~2019-12-31 12:54] MED LIST changes: -ALLE1TAB23 PO; -CALC-211 PO; -D3 H10002 PO; -GENT1SOL16 OU; -GLIP5TAB20 PO; -MACR100C43 PO; -MAGN400T2 PO; -MED REC COMMENT; -PRAZ1CAP PO; -TRAZ-257 PO; -VITA50005 PO; -[UNRECOGNIZED DRUG - CODE] PO
--- NOTE | 2019-12-31 13:25 | REPVR ---
PROCEDURE INFORMATION: Exam: CT Head Without Contrast Exam date and time: 12/31/2019 1:10 PM Age: 69 years old Clinical indication: Altered mental status/memory loss TECHNIQUE: Imaging protocol: Computed tomography of the head without contrast. Radiation optimization: All CT scans at this facility use at least one of these dose optimization techniques: automated exposure control; mA and/or kV adjustment per patient size (includes targeted exams where dose is matched to clinical indication); or iterative reconstruction. COMPARISON: CT Head without contrast 02/16/2018 3:52 PM FINDINGS: Brain: There is mild diffuse brain atrophy. There is no acute intracranial hemorrhage. No extra-axial fluid collection. No evidence of acute infarct. Jennings white differentiation is intact. There is no evidence of mass. There is no mass effect or midline shift. Cerebral ventricles: No ventriculomegaly. Bones/joints: No acute fracture. Paranasal sinuses: There is a small right maxillary sinus retention cyst or polyp. There is minimal mucosal thickening in bilateral anterior ethmoid air cells. Mastoid air cells: No significant mastoid effusion. Soft tissues: Unremarkable as visualized. IMPRESSION: No evidence of acute intracranial abnormality. No acute hemorrhage. No evidence of acute infarct or mass. Electronically signed by: Kailee Cast On 12/31/2019 13:25:21 PM
[2019-12-31 13:30] LABS: BASO % 0.5 % (0.0-1.0); EOS # 0.3 10^3/uL (0.0-0.5); HEMATOCRIT 37.6 % (42.0-52.0); HEMOGLOBIN 12.6 g/dl (13.5-17.5); LYMPH # 2.6 10^3/uL (1.5-5.0); LYMPH % 32.3 % (24.0-44.0); MEAN CORPUSCULAR HEMOGLOBIN 31.8 pg (27.0-33.0); MEAN CORPUSCULAR HGB CONC 33.5 g/dl (32.0-36.5); MEAN CORPUSCULAR VOLUME 94.9 fl (80.0-96.0); MONO # 0.7 10^3/uL (0.0-0.8); NEUTROPHILS # 4.3 10^3/uL (1.5-8.5); NEUTROPHILS % 53.6 % (36.0-66.0); PLATELET COUNT, AUTOMATED 207 10^3/uL (150-450); RED BLOOD COUNT 3.96 10^6/uL (4.30-6.10)
[2019-12-31 13:30] LABS: ABG BASE EXCESS 1.6 (-2.0-2.0); ABG HCO3 26.1 MEQ/L (22.0-26.0); ABG PARTIAL PRESSURE O2 136.4 mmHg (75.0-100.0); ABG STANDARD HCO3 25.9 MEQ/L (22.0-26.0); ABG TOTAL CO2 27.4 MEQ/L (23.0-31.0); ABG pH (ARTERIAL) 7.422 UNITS (7.350-7.450)
--- NOTE | 2019-12-31 13:40 | REPVR ---
PROCEDURE INFORMATION: Exam: XR Chest, 1 View Exam date and time: 12/31/2019 1:29 PM Age: 69 years old Clinical indication: Other: Unresponsive; Additional info: Altered mental status TECHNIQUE: Imaging protocol: XR of the chest Views: 1 view. COMPARISON: CT Chest without contrast 10/18/2018 8:39 AM FINDINGS: Lungs: There is minimal linear atelectasis or scarring in right lung base. Otherwise clear lungs with no consolidation. There is eventration of left hemidiaphragm. Pleural space: No significant visible pleural effusion. No pneumothorax. Heart/Mediastinum: Cardiac silhouette is accentuated by adjacent left-sided fat as seen on CT and heart itself is not significantly enlarged. Bones/joints: No acute finding. IMPRESSION: No evidence of significant acute pulmonary finding. Electronically signed by: Kailee Cast On 12/31/2019 13:40:15 PM
[2019-12-31 13:59] LABS: ALBUMIN 3.3 GM/DL (3.2-5.2); ALT/SGPT 37 U/L (12-78); BILIRUBIN,DIRECT < 0.1 MG/DL (0.0-0.2); BILIRUBIN,TOTAL 0.3 MG/DL (0.2-1.0); BLOOD UREA NITROGEN 19 MG/DL (7-18); CALCIUM LEVEL 8.6 MG/DL (8.8-10.2); CARBON DIOXIDE LEVEL 29 MEQ/L (21-32); CHLORIDE LEVEL 104 MEQ/L (98-107); CK-MB VALUE MASS < 1.0 NG/ML (<3.6); CPK CREATINE PHOSPHOKINASE 95 U/L (39-308); CREATININE FOR GFR 1.15 MG/DL (0.70-1.30); ETHYL ALCOHOL (ETHANOL) < 0.003 % (0.000-0.010); GLOMERULAR FILTRATION RATE > 60.0 (>49); GLUCOSE, FASTING 156 MG/DL (70-100); MB/CK RELATIVE INDEX 1.05 (< OR =4); POTASSIUM SERUM 4.1 MEQ/L (3.5-5.1); SODIUM LEVEL 138 MEQ/L (136-145); THYROID STIMULATING HORMONE 0.878 uIU/ML (0.358-3.740); TOTAL PROTEIN 7.1 GM/DL (6.4-8.2); TROPONIN I < 0.02 NG/ML (< 0.10)
--- NOTE | 2019-12-31 14:13 | REPVR ---
PROCEDURE INFORMATION: Exam: CT Chest Without Contrast Exam date and time: 12/31/2019 1:51 PM Age: 69 years old Clinical indication: Chest pain; Additional info: Chest pain, altered mental status TECHNIQUE: Imaging protocol: Computed tomography of the chest without contrast. Radiation optimization: All CT scans at this facility use at least one of these dose optimization techniques: automated exposure control; mA and/or kV adjustment per patient size (includes targeted exams where dose is matched to clinical indication); or iterative reconstruction. COMPARISON: CT Chest without contrast 10/18/2018 8:39 AM FINDINGS: Thyroid: Thyroid gland appears nonenlarged and shows no evidence of nodule. Lungs: There are basilar and posterior greater than apical fibroatelectasis similar to prior examination. No focal consolidation. Pleural space: No pneumothorax. No pleural effusion. Heart: There is minimal fluid in superior pericardial recess and a small ventral inferior pericardial effusion not significantly changed. Heart is not significantly enlarged. There is adjacent prominent fat. Aorta: There is mild atherosclerotic change in aorta and coronary arteries. No aneurysm. Lymph nodes: Unremarkable. No enlarged lymph nodes. Diaphragm: There is eventration of left hemidiaphragm. Bones/joints: There are age-related osseous degenerative changes. There are unchanged chronic fractures of lateral aspect right lower ribs. Soft tissues: Unremarkable. IMPRESSION: Stable chronic pulmonary changes. No focal consolidation or evidence of pneumonia. Electronically signed by: Kailee Cast On 12/31/2019 14:13:11 PM
--- NOTE | 2019-12-31 14:19 | REPVR ---
PROCEDURE INFORMATION: Exam: CT Abdomen And Pelvis Without Contrast Exam date and time: 12/31/2019 1:51 PM Age: 69 years old Clinical indication: Abdominal pain; Generalized; Additional info: Chest pain, altered mental status TECHNIQUE: Imaging protocol: Computed tomography of the abdomen and pelvis without contrast. Radiation optimization: All CT scans at this facility use at least one of these dose optimization techniques: automated exposure control; mA and/or kV adjustment per patient size (includes targeted exams where dose is matched to clinical indication); or iterative reconstruction. COMPARISON: CT ABD/PEL W/IV ORAL CONTRAS 02/16/2018 7:18 AM FINDINGS: Liver: Unremarkable as visualized. Gallbladder and bile ducts: There are small dependent gallstones. No findings to suggest acute cholecystitis. Pancreas: Unremarkable as visualized. No ductal dilation. Spleen: Unremarkable as visualized. No splenomegaly. Adrenals: No evidence of mass. Kidneys and ureters: There is stable approximately 5 cm cyst upper pole right kidney and 4.3 cm cyst lower pole of right kidney. There appear to be small left parapelvic. Again seen is mild infiltration of fat centrally in left kidney. No hydronephrosis. Stomach and bowel: There is mild diverticulosis without evidence of acute diverticulitis. Appendix: No evidence of appendicitis. Intraperitoneal space: No free air. No significant fluid collection. Vasculature: There is atherosclerotic change without aneurysm. Lymph nodes: No enlarged lymph nodes. Urinary bladder: There is Mooney catheter in nondistended urinary bladder. Reproductive: Unremarkable as visualized. Bones/joints: There are degenerative changes in the spine. There appears be spinal stenosis greatest at L3-L4 which is likely severe. Soft tissues: There are postoperative changes along anterior abdominal and pelvic wall likely from hernia repair. IMPRESSION: 1. Stable findings as described without acute finding. 2. Cholelithiasis. No evidence of acute cholecystitis based on CT. 3. Diverticulosis without evidence of acute diverticulitis. 4. Stable renal findings. Electronically signed by: Kailee Cast On 12/31/2019 14:19:19 PM
[2019-12-31] MEDS ORDERED: LORazepam 1 MG TAB PO ONE (14:45)
[2019-12-31 14:50] LABS: AMPHETAMINES LEVEL URINE NEGATIVE (NEGATIVE); BARBITURATES URINE NEGATIVE (NEGATIVE); BENZODIAZEPINES URINE NEGATIVE (NEGATIVE); CANNABINOIDS URINE NEGATIVE (NEGATIVE); COCAINE METABOLITE URINE NEGATIVE (NEGATIVE); METHADONE URINE NEGATIVE (NEGATIVE); OPIATES URINE NEGATIVE (NEGATIVE); PHENCYCLIDINE URINE NEGATIVE (NEGATIVE)
[2019-12-31] MEDS ORDERED: GENT1SOL16 OU (15:56)
[2019-12-31] MEDS ORDERED: VITA50005 PO (15:56)
[2019-12-31] MEDS ORDERED: [UNRECOGNIZED DRUG - CODE] PO (15:56)
[2019-12-31] MEDS ORDERED: ATIV1TAB10 PO (15:56)
[2019-12-31] MEDS ORDERED: MACR100C43 PO (15:56)
[2019-12-31] MEDS ORDERED: TRAZ-257 PO (15:56)
[2019-12-31] MEDS ORDERED: D3 H10002 PO (15:56)
[2019-12-31] MEDS ORDERED: MAGN400T2 PO (15:56)
[2019-12-31] MEDS ORDERED: ALLE1TAB23 PO (15:56)
[2019-12-31] MEDS ORDERED: CALC-211 PO (15:56)
[2019-12-31] MEDS ORDERED: GLIP5TAB20 PO (15:56)
[2019-12-31] MEDS ORDERED: PRAZ1CAP PO (15:56)
[2019-12-31] MEDS ORDERED: MED REC COMMENT (15:57)
[2019-12-31] MEDS ORDERED: DEXTROSE 50% 50 ML SYRINGE IV PRN (16:15)
[2019-12-31] MEDS ORDERED: GLUCOSE 4GM CHEW TABLET PO PRN (16:15)
[2019-12-31] MEDS ORDERED: ACETAMINOPHEN TAB 650MG DOSE (2X325MG) PO PRN (16:15)
[2019-12-31] MEDS ORDERED: GLUCAGON INJ 1MG VIAL SC PRN (16:15)
[2019-12-31] MEDS ORDERED: traZODone 100 MG TAB PO PRN (16:30)
--- NOTE | 2019-12-31 16:36 | HPEPDOC ---
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 Patient reports that he has been feeling off for the last 2 weeks. Patient regularly takes 150 mg daily, and recently has had his dose increased to 200. Reported that he was feeling more lethargic and was advised to reduce it to 100 daily. Today. Patient reported that he felt off pushes life alert button and doesnt remember the remainder of the events. Patient was brought to the hospital via ambulance. Patient denies any chest pain, shortness breath, cough. Reports some nausea, denies vomiting, abdominal pain, constipation or diarrhea. Patient reports that he does experience some urinary discomfort and was started on nitrofurantoin 2 weeks ago and was advised to take it for the 30 days. Patient reports that he lives with friendAlyx. He denies any seizure-like activity today. Denies any incontinence of bowel or bladder. Denies any tongue biting. Past Medical History: Hx of TBI (reported 6 times), Seizure disorder, HTN, DLP, IDDM2, Asthma, Depression, RLS, Neuropathy, Arthritis / Gait instability Past Surgical History: Left knee surgery 2 hernia procedures at right inguinal area Allergies: See below Medications: See below Family History: - No history of malignancies Social History: - Denies the use of alcohol, tobacco or illicit drugs - Denies recent travel or sick contacts - Lives with Alyx louise - Occupation; patient is retired Review of Systems: 10 point review of systems complete, all negative otherwise stated in HPI Physical exam: - Vitals: BP [168/83], HR [77], RR [20], Sat [100%RA], Temp [97.7F] - General: Lying in bed, Speaking in full sentences, AAOx3 - HEENT: NC, AT, PERRLA - CVS: RRR, +S1S2 - Lungs: Fair air entry bilaterally, No wheezing / rales / rhonchi - Abdomen: Soft, Non-distended, Non-tender - Extremities: No lower extremity edema, No calf tenderness - Neuro: 5/5 strength at upper and lower extremities bilaterally; cranial nerves II through XII grossly intact - Skin: No visible rashes Imaging: CT head 12/30: No evidence of acute intracranial abnormality. No acute hemorrhage. No evidence CXR 12/30: No evidence of significant acute pulmonary finding. CT chest 12/30: Stable chronic pulmonary changes. No focal consolidation or evidence of pneumonia. CT abdomen / pelvis 12/30: 1. Stable findings as described without acute finding. 2. Cholelithiasis. No evidence of acute cholecystitis based on CT. 3. Diverticulosis without evidence of acute diverticulitis. 4. Stable renal finding s. Assessment and Plan: Unresponsive / Syncope - possibly 2/2 seizure, possibly 2/2 TIA, possibly 2/2 medications - Patient reports that he has recently had an increase in the dose of his trazodone from 150 to 200 mg - Patient reports that he was feeling lethargic over the course of this week - Denies any chest pain - Troponin 2 negative. Will continue to trend - UA negative / No signs of infection / ammonia normal - UDS negative; Ethyl alcohol negative - EKG reviewed - Imaging reviewed above - Will check ECHO / MRI and MRA Brain / Telemetry monitoring - Discussed with Neurology; will check Gabapentin and Oxcarbazepine levels - c/w Oxcarbazepine 600 BID Recent history of UTI - c/w Nitrofurantoin from outpatient setting Hx of TBI (reported 6 times) - c/w Donepezil Seizure disorder - c/w Oxcarbazepine 600 BID HTN - BP well controlled - c/w Losartan DLP - c/w Simvastatin IDDM2 - Will start ISS Asthma - No evidence of exacerbation - c/w inhaled therapy as ordered Insomnia / Depression / Anxiety - c/w Quetiapine, Prazosin, Fluoxetine and Lorazepam - Will reduce Trazodone to 100 mg po daily RLS - c/w Pramipezole Neuropathy - c/w Gabapentin Arthritis / Gait instability - c/w Tylenol PRN - Will evaluate with PT DVT prophylaxis - Will start Heparin Vital Signs Vital Signs Date Time Temp Pulse Resp B/P (MAP) Pulse Ox O2 Delivery O2 Flow Rate FiO2 12/31/19 16:16 65 100 12/31/19 16:15 143/80 (101) 12/31/19 14:46 20 12/31/19 13:04 97.7 Nasal Cannula 2.0 Laboratory Data Labs 24H Laboratory Tests 2 12/31/19 13:04: Immature Granulocyte % (Auto) 0.6, Neutrophils (%) (Auto) 53.6, Lymphocytes (%) (Auto) 32.3, Monocytes (%) (Auto) 9.0H, Eosinophils (%) (Auto) 4.0H, Basophils (%) (Auto) 0.5, Neutrophils # (Auto) 4.3, Lymphocytes # (Auto) 2.6, Monocytes # (Auto) 0.7, Eosinophils # (Auto) 0.3, Basophils # (Auto) 0.0, Nucleated Red Blood Cells % (auto) 0.0, Anion Gap 5L, Glomerular Filtration Rate > 60.0, Lactic Acid Level 1.6, Calcium Level 8.6L, Total Bilirubin 0.3, Direct Bilirubin < 0.1, Aspartate Amino Transf (AST/SGOT) 22, Alanine Aminotransferase (ALT/SGPT) 37, Alkaline Phosphatase 92, Ammonia 11, Total Creatine Kinase 95, Creatine Kinase MB < 1.0, Creatine Kinase MB Relative Index 1.05, Troponin I < 0.02, Total Protein 7.1, Albumin 3.3, Albumin/Globulin Ratio 0.9, Thyroid Stimulating Hormone (TSH) 0.878, Ethyl Alcohol Level < 0.003 12/31/19 13:05: POC Glucose (Misc Panel) 159H, POC Sodium (Misc Panel) 139, POC Potassium (Misc Panel) 4.1, POC Chloride (Misc Panel) 102, POC Total CO2 (Misc Panel) 26.0, POC Blood Urea Nitrogen (Misc Panel 19, POC Ionized Calcium (Misc Panel) 4.8, POC Creatinine (Misc Panel) 1.1, POC Hematocrit (Misc Panel) 36.0L 12/31/19 13:06: POC Troponin I (Misc) 0.01 12/31/19 13:08: Blood Gas Bicarbonate Standard 25.9, Arterial Blood pH 7.422, Arterial Blood Partial Pressure CO2 41.0, Arterial Blood Partial Pressure O2 136.4H, Arterial Blood Total CO2 27.4, Arterial Blood HCO3 26.1H, Arterial Blood Base Excess 1.6, Arterial Blood Oxygen Saturation 99.0 12/31/19 13:33: Urine Color YELLOW, Urine Appearance CLEAR, Urine pH 7.0, Urine Specific [place] 1.018, Urine Protein NEGATIVE, Urine Glucose (UA) 3+H, Urine Ketones NEGATIVE, Urine Blood 1+H, Urine Nitrite NEGATIVE, Urine Bilirubin NEGATIVE, Urine Urobilinogen 0.2, Urine Leukocyte Esterase NEGATIVE, Urine WBC (Auto) 1, Urine RBC (Auto) 0, Urine Hyaline Casts (Auto) 0, Urine Bacteria (Auto) NEGATIVE, Urine Squamous Epithelial Cells 0, Urine Sperm (Auto) , Urine Opiates Screen NEGATIVE, Urine Methadone Screen NEGATIVE, Urine Barbiturates Screen NEGATIVE, Urine Phencyclidine Screen NEGATIVE, Urine Amphetamines Screen NEGATIVE, Urine Benzodiazepines Screen NEGATIVE, Urine Cocaine Metabolite Screen NEGATIVE, Urine Cannabinoids Screen NEGATIVE 12/31/19 14:41: POC Troponin I (Misc) 0.01 12/31/19 15:16: CBC/BMP Laboratory Tests 12/31/19 13:04 Home Medications Scheduled Calcium Carbonate (Calcium) 600 Mg Tablet, 1,200 MG PO DAILY Cholecalciferol (Vitamin D3) (Vitamin D3) 25 Mcg Capsule, 25 MCG PO DAILY Donepezil HCl (Donepezil HCl) 10 Mg Tablet, 10 MG PO DAILY Dulaglutide (Trulicity) 1.5 Mg/0.5 Ml Pen.injctr, 1.5 MG SC QWEEK TUESDAYS Ergocalciferol (Vitamin D2) (Vitamin D2) 50,000 Units Cap, 50,000 UNITS PO QWEEK TUESDAYS Fexofenadine HCl (Fexofenadine HCl) 180 Mg Tablet, 180 MG PO QHS Fluoxetine Hcl (Fluoxetine HCl) 20 Mg Cap, 20 MG PO QHS Fluoxetine Hcl (Fluoxetine HCl) 40 Mg Cap, 40 MG PO QAM Gabapentin (Gabapentin) 300 Mg Cap, 300 MG PO TID Glipizide (Glipizide ER) 5 Mg Tab.er.24, 5 MG PO QHS Lorazepam (Ativan) 0.5 Mg Tablet, 0.5 MG PO QHS Losartan Potassium (Losartan Potassium) 50 Mg Tab, 50 MG PO DAILY Magnesium Oxide (Magnesium Oxide) 400 Mg Tablet, 400 MG PO BID Nitrofurantoin Monohyd/M-Cryst (Macrobid 100 mg Capsule) 100 Mg Capsule, 100 MG PO QHS [place]-3 Fatty Acids/Fish Oil (Fish Oil 1,000 mg Softgel) 1 Each Capsule, 1,000 MG PO DAILY Omeprazole (Omeprazole) 40 Mg Capsule.dr, 40 MG PO BID Oxcarbazepine (Oxcarbazepine) 300 Mg Tablet, 600 MG PO BID Pramipexole Di-HCl (Mirapex) 0.125 Mg Tablet, 0.125 MG PO QHS Prazosin Hcl (Prazosin HCl) 1 Mg Capsule, 1 MG PO QHS Quetiapine Fumarate (Quetiapine Fumarate) 100 Mg Tab, 200 MG PO QHS Simvastatin (Zocor) 20 Mg Tab, 20 MG PO QHS Tamsulosin HCl (Flomax) 0.4 Mg Cap, 0.4 MG PO DAILY Trazodone HCl (Trazodone HCl) 100 Mg Tablet, 150 MG PO QHS PT TO DECREASE TO 100MG ON 12/31 Scheduled PRN Dextran/Hypromellose (Genteal Tears 0.1%-0.3% Drop) 15 Ml Drops, 1 DROP OU QID PRN for DRY EYES Nitroglycerin (Nitrostat) 0.4 Mg Subl, 0.4 MG SL NITRO PRN for CHEST PAIN Miscellaneous Medications [Med Rec Comment] OBTAINED MED LIST FROM SIGNIFICANT OTHER [facility] [phone] Allergies Coded Allergies: Penicillins (Verified Allergy, Severe, ANAPHYLAXIS, 02/05/19) diclofenac (Verified Allergy, Unknown, 02/05/19) Contrast Media (Verified Adverse Reaction, Severe, DIZZINESS CONFUSION UNRESPONSIVENESS, 02/05/19) Cephalosporins (Verified Adverse Reaction, Mild, GI, 02/05/19) Sulfa (Sulfonamide Antibiotics) (Verified Adverse Reaction, Mild, GI, 02/05/19) cetirizine (Verified Adverse Reaction, Mild, REACTED WITH OTHER MEDS, 02/05/19) divalproex sodium (Verified Adverse Reaction, Mild, GI, 02/05/19) "DEATHLY SICK" doxycycline (Verified Adverse Reaction, Mild, GI, 02/05/19) valproic acid (Verified Adverse Reaction, Mild, N/V, 02/05/19) DAVID BENITEZ MD Dec 31, 2019 16:36
--- NOTE | 2019-12-31 17:20 | REPVR ---
PROCEDURE INFORMATION: Exam: MR Angiogram Head Without Contrast, Arteries Exam date and time: 12/31/2019 5:15 PM Age: 69 years old Clinical indication: Weakness and other: CVA TECHNIQUE: Imaging protocol: MR angiogram head without contrast. Exam focused on the arteries. 3D rendering (Not supervised by radiologist): MIP and/or 3D reconstructed images were created by the technologist. COMPARISON: CT Head without contrast 12/31/2019 1:00 PM FINDINGS: ANTERIOR CIRCULATION: Right internal carotid artery: Intracranial segment is patent with no significant stenosis. No aneurysm. Right middle cerebral artery: No occlusion or significant stenosis. No aneurysm. Right anterior cerebral artery: No occlusion or significant stenosis. No aneurysm. Left internal carotid artery: Intracranial segment is patent with no significant stenosis. No aneurysm. Left middle cerebral artery: No occlusion or significant stenosis. No aneurysm. Left anterior cerebral artery: No occlusion or significant stenosis. No aneurysm. POSTERIOR CIRCULATION: Right vertebral artery: No occlusion or significant stenosis. No aneurysm. Left vertebral artery: No occlusion or significant stenosis. No aneurysm. Basilar artery: No occlusion or significant stenosis. No aneurysm. Right posterior cerebral artery: There is persistent origin of the right posterior cerebral artery. Left posterior cerebral artery: No occlusion or significant stenosis. No aneurysm. IMPRESSION: No acute abnormality. Electronically signed by: Eloy Houston On 12/31/2019 17:20:07 PM
--- NOTE | 2019-12-31 17:24 | REPVR ---
PROCEDURE INFORMATION: Exam: MR Head Without Contrast Exam date and time: 12/31/2019 5:15 PM Age: 69 years old Clinical indication: Walking, difficulty and other: CVA TECHNIQUE: Imaging protocol: MR of the head without contrast. COMPARISON: CT Head without contrast 12/31/2019 1:00 PM FINDINGS: Brain: There is no acute intracranial hemorrhage, cerebral edema, or midline shift. No restricted diffusion is present to suggest acute infarction. Minimal chronic small vessel ischemic disease is noted in the cerebral white matter. Cerebral ventricles: Normal. No ventriculomegaly. Bones/joints: Unremarkable. Paranasal sinuses: There is no acute sinusitis. Mastoid air cells: Normal as visualized. No mastoid effusion. Orbits: The patient is likely status post bilateral cataract surgery. Soft tissues: Unremarkable. IMPRESSION: 1. No acute abnormality. 2. Chronic findings as discussed above. Electronically signed by: Eloy Houston On 12/31/2019 17:24:36 PM
[2019-12-31] MEDS: HumaLOG INSULIN (NovoLOG) PER UNIT SC SCH (17:30)
[2019-12-31 18:56] VITALS: BP 137/80
--- NOTE | 2019-12-31 19:40 | ECGEPIP ---
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
--- NOTE | 2019-12-31 19:43 | ECGEPIP ---
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
[2019-12-31 20:00] VITALS: BP 145/86
[2019-12-31 20:02] LABS: CPK CREATINE PHOSPHOKINASE 95 U/L (39-308); MB/CK RELATIVE INDEX 1.05 (< OR =4); TROPONIN I < 0.02 NG/ML (< 0.10)
[2019-12-31] MEDS ORDERED: SIMVASTATIN 20 MG TAB PO SCH (21:00)
[2019-12-31] MEDS ORDERED: PRAZOSIN 1 MG CAP PO SCH (21:00)
[2019-12-31] MEDS ORDERED: PRAMIPEXOLE (MIRAPEX) 0.125 MG TAB PO SCH (21:00)
[2019-12-31] MEDS ORDERED: QUEtiapine FUMARATE 200 MG TAB PO SCH (21:00)
[2019-12-31] MEDS ORDERED: HumaLOG INSULIN (NovoLOG) PER UNIT SC SCH (21:00)
[2019-12-31] MEDS ORDERED: LORazepam 0.5 MG TAB PO SCH (21:00)
[2019-12-31] MEDS ORDERED: FLUoxetine 20 MG CAP PO SCH (21:00)
[2019-12-31] MEDS ORDERED: NITROFURANTOIN (MACROBID) 100 MG CAP PO SCH (21:00)
[2019-12-31] MEDS: MAGNESIUM OXIDE 400 MG TAB (MAG-OX) PO SCH (21:20)
[2019-12-31] MEDS: OMEPRAZOLE 20 MG CAP PO SCH (21:20)
[2019-12-31] MEDS: GABAPENTIN 300 MG CAP PO SCH (21:21)
[2019-12-31] MEDS: HEPARIN SOD (PORCINE) 5000UNITS/ML 1ML VIAL/SYRINGE SC SCH (21:23)
[2019-12-31] MEDS: OXcarbazepine 300 MG TAB PO SCH (23:07)
[2020-01-01] VITALS: BP 138/81
[2020-01-01] MEDS ORDERED: PROAAER10 INH (01:51)
[2020-01-01] MEDS ORDERED: ALBU83IN INH (01:51)
[2020-01-01 04:00] VITALS: BP 148/88
[2020-01-01 05:30] LABS: BASO % 0.3 % (0.0-1.0); EOS # 0.3 10^3/uL (0.0-0.5); HEMATOCRIT 35.8 % (42.0-52.0); HEMOGLOBIN 11.8 g/dl (13.5-17.5); LYMPH # 2.4 10^3/uL (1.5-5.0); LYMPH % 31.3 % (24.0-44.0); MEAN CORPUSCULAR HEMOGLOBIN 31.1 pg (27.0-33.0); MEAN CORPUSCULAR VOLUME 94.2 fl (80.0-96.0); MONO # 0.6 10^3/uL (0.0-0.8); MONO % 8.2 % (0.0-5.0); NEUTROPHILS # 4.2 10^3/uL (1.5-8.5); NEUTROPHILS % 55.7 % (36.0-66.0); PLATELET COUNT, AUTOMATED 190 10^3/uL (150-450); WHITE BLOOD COUNT 7.6 10^3/uL (4.0-10.0)
[2020-01-01 05:55] LABS: BLOOD UREA NITROGEN 17 MG/DL (7-18); CALCIUM LEVEL 8.4 MG/DL (8.8-10.2); CARBON DIOXIDE LEVEL 29 MEQ/L (21-32); CHLORIDE LEVEL 104 MEQ/L (98-107); CK-MB VALUE MASS < 1.0 NG/ML (<3.6); CPK CREATINE PHOSPHOKINASE 96 U/L (39-308); CREATININE FOR GFR 1.11 MG/DL (0.70-1.30); GLOMERULAR FILTRATION RATE > 60.0 (>49); GLUCOSE, FASTING 156 MG/DL (70-100); MAGNESIUM LEVEL 1.9 MG/DL (1.8-2.4); MB/CK RELATIVE INDEX 1.04 (< OR =4); SODIUM LEVEL 138 MEQ/L (136-145); TROPONIN I < 0.02 NG/ML (< 0.10)
[2020-01-01] MEDS: HEPARIN SOD (PORCINE) 5000UNITS/ML 1ML VIAL/SYRINGE SC SCH ×2 (06:28→15:04)
[2020-01-01 08:00] VITALS: BP 162/96
[2020-01-01] MEDS ORDERED: DONEPEZIL 5 MG TAB PO SCH (09:00)
[2020-01-01] MEDS ORDERED: LOSARTAN 50MG TABLET PO SCH (09:00)
[2020-01-01] MEDS ORDERED: TAMSULOSIN 0.4 MG CAP PO SCH (09:00)
[2020-01-01] MEDS ORDERED: FLUoxetine 20 MG CAP PO SCH (09:00)
[2020-01-01] MEDS: OXcarbazepine 300 MG TAB PO SCH (10:05)
[2020-01-01] MEDS: HumaLOG INSULIN (NovoLOG) PER UNIT SC SCH ×3 (10:05→17:30)
[2020-01-01 10:06] VITALS: BP 162/96
[2020-01-01] MEDS: OMEPRAZOLE 20 MG CAP PO SCH (10:06)
[2020-01-01] MEDS: MAGNESIUM OXIDE 400 MG TAB (MAG-OX) PO SCH (10:07)
[2020-01-01] MEDS: GABAPENTIN 300 MG CAP PO SCH ×2 (10:09→17:12)
[2020-01-01 12:00] VITALS: BP 170/84
[2020-01-01] MEDS ORDERED: TRAZ-257 PO (15:54)
[2020-01-01 16:00] VITALS: BP 126/84
--- NOTE | 2020-01-01 16:49 | DS.PDOC ---
Discharge Summary General Date of Admission Dec 31, 2019 at 12:55 Date of Discharge 01/01/20 Discharge Summary PROCEDURES PERFORMED DURING STAY: [None]. DISCHARGE DIAGNOSES: Toxic metabolic encephalopathy due to medication probably from increased dose of trazodone. SECONDARY DIAGNOSIS: TBI (reported 6 times), Dementia, Seizure disorder, HTN, DLP, IDDM2, Asthma, Depression, RLS, Neuropathy, Arthritis / Gait instability,YADI on CPAP, obesity, Chronic urinary retention self catheterizes COMPLICATIONS/CHIEF COMPLAINT: Unresponsive Episode. HOSPITAL COURSE: Patient is a 69-year-old male with a PMHx of Hx of TBI (reported 6 times), Dementia, Seizure disorder, HTN, DLP, IDDM2, Asthma, Depression, RLS, Neuropathy, Arthritis / Gait instability,YADI on CPAP, obesity, Chronic urinary retention self catheterizes 4 to 5 times a day who was brought into the hospital via ambulance after he was found unresponsive at home. He reports that he was confused, lethargic, slow and did not know what he was doing. Patient reported that he felt off so pushed life alert button and doesnt remember the remainder of the events. Patient was brought to the hospital via ambulance. Recently his Trazodone dosage was increased 3 weeks ago which he took for 2 weeks but was making him very sleepy to was again reduced to 150 mg 1 week ago and the day prio to admission it was reduced to 100 mg. Patient reporte d that he does experience some urinary discomfort and was started on nitrofurantoin 2 weeks ago and was advised to take it for the 30 days. Patient lives with friend, Alyx. He denies any seizure-like activity today. Denies any incontinence of bowel or bladder. Denies any tongue biting. He was monitored on Telemetry for 24 hours with no cardiac arrhythmias, His MRI and MRA were negative for any acute stroke. He was evaluated by Dr Hartman from neurology and it was felt that his symptoms were medication related. Unresponsiveness Due to toxic metabolic encephalopathy due to medications. Most likely increased dosage of trazodone. Trazodone reduced to 100 mg. Recent history of UTI probably related to self catheterizations. c/w Nitrofurantoin from outpatient setting Hx of TBI (reported 6 times) with dementia c/w Donepezil Seizure disorder c/w Oxcarbazepine 600 BID HTN c/w Losartan DLP c/w Simvastatin IDDM2 c/w home meds Asthma No evidence of exacerbation c/w inhaled therapy Insomnia / Depression / Anxiety c/w Quetiapine, Prazosin, Fluoxetine and Lorazepam Will reduce Trazodone to 100 mg po daily RLS c/w Pramipezole Neuropathy c/w Gabapentin Arthritis / Gait instability c/w Tylenol PRN Obesity/YADI complaint with CPAP Chronic urinary retention Self catheterizes. DISCHARGE MEDICATIONS: Please see below. ALLERGIES: Please see below. PHYSICAL EXAMINATION ON DISCHARGE: VITAL SIGNS: Please see below. General: Lying in bed, Speaking in full sentences, AAOx3 HEENT: NC, AT, PERRLA CVS: RRR, +S1S2, No rub/ murmur or gallop Lungs: Fair air entry bilaterally, No wheezing / rales / rhonchi Abdomen: Soft, Non-distended, Non-tender, bowel sounds normal. Extremities: No lower extremity edema, No calf tenderness Neuro: 5/5 strength at upper and lower extremities bilaterally; cranial nerves II through XII grossly intact Skin: No visible rashes LABORATORY DATA: Please see below. IMAGING: CT head 12/30: No evidence of acute intracranial abnormality. No acute hemorrhage. No evidence CXR 12/30: No evidence of significant acute pulmonary finding. CT chest 12/30: Stable chronic pulmonary changes. No focal consolidation or evidence of pneumonia. CT abdomen / pelvis 12/30: 1. Stable findings as described without acute finding. 2. Cholelithiasis. No evidence of acute cholecystitis based on CT. 3. Diverticulosis without evidence of acute diverticulitis. 4. Stable renal findings. ACTIVITY: [As tolerated]. DIET: Carb consistent, 2 gm sodium DISCHARGE PLAN: Home DISPOSITION: . DISCHARGE INSTRUCTIONS: PMD in 1 week ITEMS TO FOLLOWUP ON ON OUTPATIENT: Echo report DISCHARGE CONDITION: [Stable]. TIME SPENT ON DISCHARGE: 35 minutes. Vital Signs/I&Os Vital Signs Date Time Temp Pulse Resp B/P (MAP) Pulse Ox O2 Delivery O2 Flow Rate FiO2 01/01/20 16:00 98.3 75 20 126/84 (98) 96 Room Air 12/31/19 13:04 2.0 I&O- Last 24 Hours up to 6 AM 01/01/20 06:00 Intake Total 0 ml Output Total 1000 ml Balance -1000 ml Laboratory Data Labs 24H Laboratory Tests 2 12/31/19 19:21: Total Creatine Kinase 95, Creatine Kinase MB 1.0, Creatine Kinase MB Relative Index 1.05, Troponin I < 0.02 12/31/19 20:38: Bedside Glucose (Misc Panel) 213H 01/01/20 05:03: Total Creatine Kinase 96, Creatine Kinase MB < 1.0, Creatine Kinase MB Relative Index 1.04, Troponin I < 0.02, Immature Granulocyte % (Auto) 0.5, Neutrophils (%) (Auto) 55.7, Lymphocytes (%) (Auto) 31.3, Monocytes (%) (Auto) 8.2H, Eosinophils (%) (Auto) 4.0H, Basophils (%) (Auto) 0.3, Neutrophils # (Auto) 4.2, Lymphocytes # (Auto) 2.4, Monocytes # (Auto) 0.6, Eosinophils # (Auto) 0.3, Basophils # (Auto) 0.0, Nucleated Red Blood Cells % (auto) 0.0, Anion Gap 5L, Glomerular Filtration Rate > 60.0, Calcium Level 8.4L, Magnesium Level 1.9 01/01/20 11:50: Bedside Glucose (Misc Panel) 197H CBC/BMP Laboratory Tests 01/01/20 05:03 FSBS Laboratory Tests Test 12/31/19 20:38 01/01/20 11:50 Range/Units Bedside Glucose (Misc Panel) 213 197 80-115 MG/DL Discharge Medications Scheduled Calcium Carbonate (Calcium) 600 Mg Tablet, 1,200 MG PO DAILY, (Reported) Cholecalciferol (Vitamin D3) (Vitamin D3) 25 Mcg Capsule, 25 MCG PO DAILY, (Reported) Donepezil HCl (Donepezil HCl) 10 Mg Tablet, 10 MG PO DAILY, (Reported) Dulaglutide (Trulicity) 1.5 Mg/0.5 Ml Pen.injctr, 1.5 MG SC QWEEK, (Reported) TUESDAYS Ergocalciferol (Vitamin D2) (Vitamin D2) 50,000 Units Cap, 50,000 UNITS PO QWEEK, (Reported) TUESDAYS Fexofenadine HCl (Fexofenadine HCl) 180 Mg Tablet, 180 MG PO QHS, (Reported) Fluoxetine Hcl (Fluoxetine HCl) 20 Mg Cap, 20 MG PO QHS, (Reported) Fluoxetine Hcl (Fluoxetine HCl) 40 Mg Cap, 40 MG PO QAM, (Reported) Gabapentin (Gabapentin) 300 Mg Cap, 300 MG PO TID, (Reported) Glipizide (Glipizide ER) 5 Mg Tab.er.24, 5 MG PO QHS, (Reported) Lorazepam (Ativan) 0.5 Mg Tablet, 0.5 MG PO QHS, (Reported) Losartan Potassium (Losartan Potassium) 50 Mg Tab, 50 MG PO DAILY, (Reported) Magnesium Oxide (Magnesium Oxide) 400 Mg Tablet, 400 MG PO BID, (Reported) Nitrofurantoin Monohyd/M-Cryst (Macrobid 100 mg Capsule) 100 Mg Capsule, 100 MG PO QHS, (Reported) [place]-3 Fatty Acids/Fish Oil (Fish Oil 1,000 mg Softgel) 1 Each Capsule, 1,000 MG PO DAILY, (Reported) Omeprazole (Omeprazole) 40 Mg Capsule.dr, 40 MG PO BID, (Reported) Oxcarbazepine (Oxcarbazepine) 300 Mg Tablet, 600 MG PO BID, (Reported) Pramipexole Di-HCl (Mirapex) 0.125 Mg Tablet, 0.125 MG PO QHS, (Reported) Prazosin Hcl (Prazosin HCl) 1 Mg Capsule, 1 MG PO QHS, (Reported) Quetiapine Fumarate (Quetiapine Fumarate) 100 Mg Tab, 200 MG PO QHS, (Reported) Simvastatin (Zocor) 20 Mg Tab, 20 MG PO QHS, (Reported) Tamsulosin HCl (Flomax) 0.4 Mg Cap, 0.4 MG PO DAILY, (Reported) Trazodone HCl (Trazodone HCl) 100 Mg Tablet, 100 MG PO QHS PT TO DECREASE TO 100MG ON 12/31 Scheduled PRN Albuterol Sulf (Albuterol Sulfate) 2.5 Mg/3 Ml Vial.neb, 2.5 MG INH TID PRN for SHORTNESS OF BREATH, (Reported) Albuterol Sulfate (Proair Hfa) 8.5 Gm Hfa.aer.ad, 1 PUFF INH Q4H PRN for SHORTNESS OF BREATH, (Reported) Dextran/Hypromellose (Genteal Tears 0.1%-0.3% Drop) 15 Ml Drops, 1 DROP OU QID PRN for DRY EYES, (Reported) Nitroglycerin (Nitrostat) 0.4 Mg Subl, 0.4 MG SL NITRO PRN for CHEST PAIN, (Reported) Miscellaneous Medications [Med Rec Comment] , (Reported) OBTAINED MED LIST FROM SIGNIFICANT OTHER [facility] [phone] Allergies Coded Allergies: Penicillins (Verified Allergy, Severe, ANAPHYLAXIS, 02/05/19) diclofenac (Verified Allergy, Unknown, 02/05/19) Contrast Media (Verified Adverse Reaction, Severe, DIZZINESS CONFUSION UNRESPONSIVENESS, 02/05/19) Cephalosporins (Verified Adverse Reaction, Mild, GI, 02/05/19) Sulfa (Sulfonamide Antibiotics) (Verified Adverse Reaction, Mild, GI, 02/05/19) cetirizine (Verified Adverse Reaction, Mild, REACTED WITH OTHER MEDS, 02/05/19) divalproex sodium (Verified Adverse Reaction, Mild, GI, 02/05/19) "DEATHLY SICK" doxycycline (Verified Adverse Reaction, Mild, GI, 02/05/19) valproic acid (Verified Adverse Reaction, Mild, N/V, 02/05/19) SHILO YOST MD Jan 01, 2020 16:49
--- NOTE | 2020-01-04 09:56 | ECHO ---
DATE OF PROCEDURE: 01/01/2020 Age: 69 Gender: Male Height: 178 cm Weight: 134 kg REFERRING PHYSICIAN: Justina Ball M.D. INDICATION: Syncope. MEASUREMENTS: 2D Measurements: Aortic root 3.3 cm Left atrium 4.1 cm Intraventricular septum 1.42 cm Posterior wall 1.18 cm Left ventricle diastole 4.7 cm Inferior vena cava 2.0 cm (more than 50% respiratory variation) Doppler Measurements: No aortic stenosis No aortic regurgitation Aortic valve velocity 179 cm/s LVOT velocity 121 cm/s No mitral stenosis No mitral regurgitation Mitral E velocity 55.7 cm/s Mitral A velocity 75.8 cm/s Mitral deceleration time 261 msec No tricuspid regurgitation No pulmonic regurgitation Pulmonary acceleration time 97 msec MITRAL ANNULAR TISSUE DOPPLER E prime septal 6.1 cm/s, E prime lateral 8.5 cm/s DESCRIPTION: Rhythm was sinus. Image quality was fair. No aortic arch view available. This was a 2D, M-mode, color flow Doppler, and pulsed wave Doppler examination including mitral annular tissue Doppler. CONCLUSIONS: 1. Mild concentric left ventricular hypertrophy. Normal regional left ventricular (LV) wall motion and wall thickening. Normal left ventricular (LV) systolic function. Left ventricular ejection fraction (LVEF) 70% by visual estimate. Grade 1 left ventricular (LV) diastolic dysfunction (impaired relaxation filling pattern). 2. Very small pericardial effusion. No diastolic chamber collapse. 3. Mild aortic valve sclerosis of a 3-cuspid aortic valve. No aortic regurgitation. 4. Suggestive of mild elevation of pulmonary artery systolic pressure. 5. Otherwise normal appearing echocardiogram Doppler findings. [facility]
--- NOTE | 2020-01-04 10:29 | CR ---
DATE: 01/01/2020 REFERING PHYSICIAN: Justina Ball MD REASON FOR CONSULTATION: Episode of unresponsiveness. HISTORY OF PRESENT ILLNESS: Noah Huerta is a 69-year-old man with a history of traumatic brain injury, seizures with last seizure in 2000, hypertension, type 2 diabetes, depression, anxiety, restless legs, neuropathy, gait instability, without self catheterizes his urinary bladder due to urinary retention and neurogenic bladder. The patient reported that he has been feeling off for the last two weeks. His trazodone was increased from 150 mg to 200 mg at night and he started feeling more lethargic. On the morning of admission, the patient reported that he felt off and pushed Life Alert button and does not remember the remainder events. The patient stated that he was with his significant other and passed out. He was unconscious for 2-3 hours. Significant other did not notice any shaking activity. He was brought to emergency department by ambulance. Emergency department physician reported that the patient had shaking of left side of body. The patient started nitrofurantoin two weeks ago for urinary discomfort. He denies any new headaches, dysphagia, dysarthria, diplopia, urinary incontinence. He denies any tongue biting. He feels back to baseline. His trazodone dose has been reduced. The patient states that he has been taking multiple medications. PAST MEDICAL HISTORY: 1. Traumatic brain injury. 2. Seizures. 3. Hypertension. 4. Dyslipidemia. 5. Type 2 diabetes. 6. Asthma. 7. Depression. 8. Restless legs. 9. Neuropathy. 10. Arthritis. 11. Gait instability. 12. Left knee surgery. 13. Hernia surgery. 14. Neurogenic bladder. FAMILY HISTORY: Unremarkable and noncontributory. SOCIAL HISTORY: He denies smoking alcohol or illicit drugs. REVIEW OF SYSTEMS: All systems are reviewed and found to be noncontributory, except as mentioned in history of present illness. HOME MEDICATIONS: Calcium carbonate 1200 mg by mouth daily, vitamin D3 25 mcg by mouth daily, Aricept 10 mg by mouth daily, Trulicity 1.5 mg subcutaneous once a week, vitamin D2 03359 units once a week, Kristen 180 mg by mouth daily, Prozac 20 mg by mouth daily and 40 mg in the morning, gabapentin 300 mg by mouth t.i.d., glipizide 5 mg by mouth daily, Ativan 0.5 mg by mouth q.h.s., losartan 50 mg by mouth daily, magnesium oxide 400 mg by mouth b.i.d., nitrofurantoin 100 mg by mouth q.h.s., omeprazole 40 mg by mouth b.i.d., fish oil, Trileptal 600 mg by mouth b.i.d., prazosin 1 mg by mouth daily, quetiapine 200 mg by mouth q.h.s., trazodone 200 mg by mouth q.h.s., which was reduced to 100 mg by mouth q.h.s., Flomax 0.4 mg by mouth daily, simvastatin 20 mg by mouth daily. ALLERGIES: PENICILLIN, DICLOFENAC, CONTRAST DYE, CEPHALOSPORINS, SULFA, CITRAZINE, DEPAKOTE, DOXYCYCLINE. PHYSICAL EXAMINATION: Temperature 99, pulse 74, respiratory rate 20, blood pressure 170/84, 97% saturation on room air. Heart: Regular rate and rhythm. Lungs: Clear to auscultation. Abdomen: Soft, nontender, non-distended. No pedal edema. No musculoskeletal abnormalities. No rash. No sighs or meningeal irritation. The patient is awake, alert, oriented to place, person and time. Normal speech, comprehension and repetition. Extraocular muscles are intact. No facial weakness. Tongue and uvula are midline. 5/5 strength in all four extremities. Deep tendon reflexes are 2+ throughout. He has decreased cold, pinprick, vibration, sensation in his feet. Gait is normal. The patient has a Mooney catheter and is able to walk with his urine bag. No nystagmus. Visual osborn are full to confrontation. ASSESSMENT: 1. Episode of loss of consciousness or drowsiness due to medications. 2. Seizure is less likely. 3. No evidence of stroke on MRI and MRA brain, which only showed minimal small vessel ischemic disease of brain. 4. History of traumatic brain injury and seizures and his last seizure was in 2000 and he has been stable with his current medications. PLAN: 1. Trileptal 600 mg by mouth b.i.d. 2. Gabapentin 300 mg by mouth t.i.d. 3. Donepezil 10 mg by mouth daily, which he takes for mild cognitive impairment and short term memory difficulties. 4. Follow with Dr. Song as planned. We should simplify his medications and decrease his sedatives if possible. [facility]
[2020-01-04 17:07] LABS: OXCARBAZEPINE 24 ug/mL (10-35)
== END 2020-01-01 18:36 | disposition home or self-care (01) ==
LOC: M ED 12:54 → EDBD 12:54 → M ED INP 12:55 → ENRESERV 16:19 → M PCU 18:34
PROVIDERS: ADMIT Internal Medicine; ATTEND Internal Medicine
DX: G92 Toxic encephalopathy (principal); Z87.820 Personal history of traumatic brain injury; F03.90 Unspecified dementia, unspecified severity, without behavioral disturbance, psychotic disturbance, mood disturbance, and anxiety; G40.909 Epilepsy, unspecified, not intractable, without status epilepticus; I10 Essential (primary) hypertension; E78.5 Hyperlipidemia, unspecified; E11.9 Type 2 diabetes mellitus without complications; J45.909 Unspecified asthma, uncomplicated; G25.81 Restless legs syndrome; G47.33 Obstructive sleep apnea (adult) (pediatric); E66.9 Obesity, unspecified; G45.8 Other transient cerebral ischemic attacks and related syndromes; R26.9 Unspecified abnormalities of gait and mobility; R33.8 Other retention of urine; G47.00 Insomnia, unspecified; F41.9 Anxiety disorder, unspecified; F32.9 Major depressive disorder, single episode, unspecified; Z88.0 Allergy status to penicillin; Z91.041 Radiographic dye allergy status; Z88.1 Allergy status to other antibiotic agents; Z88.8 Allergy status to other drugs, medicaments and biological substances; Z79.899 Other long term (current) drug therapy
CPT/HCPCS: 36415; 36600; 51702; 70450; 70544; 70551; 71045; 71250; 74176; 80047; 80048; 80076; 80171; 80183; 80307; 81001; 82140; 82550; 82553; 82803; 83605; 83735; 84145; 84443; 84484; 85025; 93005; 93041; 93306; 96372; 97161; 99285; G0378; G0480; J1644

== ENCOUNTER → 2020-03-22 | Outpatient (CLI) | payer SELFPAY ==
[~2020-03-22] MED LIST changes: +ALLE1TAB23 PO; +CALC-211 PO; +D3 H10002 PO; +GENT1SOL16 OU; +GLIP5TAB20 PO; +MACR100C43 PO; +MAGN400T2 PO; +MED REC COMMENT; +PRAZ1CAP PO; +TRAZ-257 PO; +VITA50005 PO; +[UNRECOGNIZED DRUG - CODE] PO
== END ==
LOC: M LABSMTC 13:51
PROVIDERS: ATTEND Pediatrics
DX: Z20.822 Contact with and (suspected) exposure to COVID-19 (principal)

== ENCOUNTER → 2020-05-30 | Outpatient (REF) | payer MEDICARE, MEDICAID ==
[~2020-05-30] MED LIST changes: +GABA-282; +GABA-282 PO; -GABA-843; -GABA-843 PO
[2020-05-30 20:02] LABS: ALBUMIN 3.3 GM/DL (3.2-5.2); ALT/SGPT 53 U/L (12-78); BILIRUBIN,TOTAL 0.1 MG/DL (0.2-1.0); BLOOD UREA NITROGEN 17 MG/DL (7-18); CALCIUM LEVEL 8.7 MG/DL (8.8-10.2); CARBON DIOXIDE LEVEL 30 MEQ/L (21-32); CHLORIDE LEVEL 106 MEQ/L (98-107); CREATININE FOR GFR 1.16 MG/DL (0.70-1.30); GLOMERULAR FILTRATION RATE > 60.0 (>42); GLUCOSE, FASTING 213 MG/DL (70-100); MAGNESIUM LEVEL 1.8 MG/DL (1.8-2.4); POTASSIUM SERUM 4.8 MEQ/L (3.5-5.1); SODIUM LEVEL 139 MEQ/L (136-145); TOTAL 25(OH) VITAMIN D 41.4 NG/ML (30.0-100.0); TOTAL PROTEIN 6.9 GM/DL (6.4-8.2)
[2020-05-30 20:07] LABS: HEMOGLOBIN A1c 9.4 %
== END ==
LOC: M SFHCADAM 09:02
PROVIDERS: ATTEND Nurse Practitioner Family
DX: E11.69 Type 2 diabetes mellitus with other specified complication (principal); I10 Essential (primary) hypertension; E55.9 Vitamin D deficiency, unspecified; R97.20 Elevated prostate specific antigen [PSA]
CPT/HCPCS: 80053; 82306; 83036; 83735; G0103

== ENCOUNTER → 2020-06-01 | Outpatient (REF) | payer MEDICARE, MEDICAID | LOC: M LABSMT 08:57 → M SFHCADAM 08:58 | PROVIDERS: ATTEND Nurse Practitioner Family | DX: R97.20 Elevated prostate specific antigen [PSA] (principal); N39.0 Urinary tract infection, site not specified ==

== ENCOUNTER → 2020-07-07 | Outpatient (REF) | payer MEDICARE, MEDICAID ==
[2020-07-07 18:15] LABS: ALBUMIN 3.7 GM/DL (3.2-5.2); ALT/SGPT 52 U/L (12-78); BILIRUBIN,TOTAL 0.3 MG/DL (0.2-1.0); BLOOD UREA NITROGEN 20 MG/DL (7-18); CALCIUM LEVEL 9.1 MG/DL (8.8-10.2); CARBON DIOXIDE LEVEL 29 MEQ/L (21-32); CHLORIDE LEVEL 103 MEQ/L (98-107); CHOLESTEROL LEVEL 163 MG/DL (<200); CHOLESTEROL RISK RATIO 2.716 (<5); CREATININE FOR GFR 1.17 MG/DL (0.70-1.30); GLOMERULAR FILTRATION RATE > 60.0 (>42); GLUCOSE, FASTING 191 MG/DL (70-100); HDL CHOLESTEROL 60 MG/DL (>40); LDL CHOLESTEROL 72 MG/DL (<100); NON-HDL-C 103 MG/DL; POTASSIUM SERUM 4.4 MEQ/L (3.5-5.1); SODIUM LEVEL 137 MEQ/L (136-145); TOTAL PROTEIN 7.6 GM/DL (6.4-8.2); TRIGLYCERIDES LEVEL 157 MG/DL (<150)
[2020-07-07 18:23] LABS: TOTAL 25(OH) VITAMIN D 45.4 NG/ML (30.0-100.0)
[2020-07-07 19:09] LABS: HEMOGLOBIN A1c 8.8 %
== END ==
LOC: M SFHCADAM 13:20
PROVIDERS: ATTEND Nurse Practitioner Family
DX: E11.69 Type 2 diabetes mellitus with other specified complication (principal); E78.2 Mixed hyperlipidemia; E55.9 Vitamin D deficiency, unspecified; Z79.899 Other long term (current) drug therapy

== ENCOUNTER → 2020-07-08 | Outpatient (REF) | payer MEDICARE, MEDICAID ==
[2020-07-08 17:39] LABS: MALB URINE SIEMENS 42.5 MG/L; MAU/CREAT RATIO 18.3 MCG/MG (0.0-30.0)
== END ==
LOC: M SFHCADAM 14:42
PROVIDERS: ATTEND Nurse Practitioner Family
DX: E11.69 Type 2 diabetes mellitus with other specified complication (principal)

== ENCOUNTER → 2020-08-02 | Outpatient (REF) | payer MEDICARE, MEDICAID ==
[2020-08-02 18:24] LABS: APPEARANCE, URINE HAZY (CLEAR); BACTERIA, URINE AUTO NEGATIVE (NEGATIVE); BILIRUBIN, URINE AUTO NEGATIVE (NEGATIVE); BLOOD, URINE BLOOD 1+ (NEGATIVE); COLOR, URINE YELLOW (YELLOW); GLUCOSE, URINE (UA) AUTO 3+ mg/dL (NEGATIVE); KETONE, URINE AUTO NEGATIVE (NEGATIVE); LEUKOCYTE ESTERASE, URINE AUTO 2+ (NEGATIVE); MUCUS, URINE SMALL (NEGATIVE); NITRITE, URINE AUTO NEGATIVE (NEGATIVE); PROTEIN, URINE AUTO 1+ mg/dL (NEGATIVE); RBC, URINE AUTO 1 /HPF (0-3); SPECIFIC GRAVITY URINE AUTO 1.023 (1.002-1.035); SQUAMOUS EPITHELIAL CELL UR AU 4 /HPF (0-6); UROBILINOGEN, URINE AUTO 0.2 mg/dL (0.0-2.0); WBC, URINE AUTO 7 /HPF (0-3)
== END ==
LOC: M SMT 17:07
PROVIDERS: ATTEND Nurse Practitioner Family
DX: R30.0 Dysuria (principal)

== ENCOUNTER → 2020-10-21 | Outpatient (CLI) | payer MEDICARE, MEDICAID ==
[~2020-10-21] MED LIST changes: +ERGO500029 PO; +OMEP40CA4; +OMEP40CA4 PO; -OMEP40CA97; -OMEP40CA97 PO; -VITA50005 PO
[2020-10-21 14:19] LABS: HEMOGLOBIN A1c 7.8 %
[2020-10-21 14:23] LABS: BLOOD UREA NITROGEN 20 MG/DL (7-18); CALCIUM LEVEL 8.9 MG/DL (8.8-10.2); CARBON DIOXIDE LEVEL 30 MEQ/L (21-32); CHLORIDE LEVEL 102 MEQ/L (98-107); CREATININE FOR GFR 1.09 MG/DL (0.70-1.30); GLOMERULAR FILTRATION RATE > 60.0 (>42); GLUCOSE, FASTING 174 MG/DL (70-100); MAGNESIUM LEVEL 2.1 MG/DL (1.8-2.4); POTASSIUM SERUM 4.5 MEQ/L (3.5-5.1); SODIUM LEVEL 139 MEQ/L (136-145)
== END ==
LOC: M PLALAB 11:15
PROVIDERS: ATTEND Family Medicine
DX: E11.69 Type 2 diabetes mellitus with other specified complication (principal); E11.22 Type 2 diabetes mellitus with diabetic chronic kidney disease; N18.31 Chronic kidney disease, stage 3a; R94.31 Abnormal electrocardiogram [ECG] [EKG]

== ENCOUNTER → 2020-11-14 | Outpatient (REF) | payer MEDICARE, MEDICAID | LOC: M LAB REF 17:20 | PROVIDERS: ATTEND Internal Medicine Nephrology | DX: E83.42 Hypomagnesemia (principal) ==

== ENCOUNTER → 2020-12-15 | Outpatient (REF) | payer MEDICARE, MEDICAID ==
[2020-12-15 11:47] LABS: HEMOGLOBIN A1c 7.6 %
[2020-12-15 11:58] LABS: ALBUMIN 3.1 GM/DL (3.2-5.2); BILIRUBIN,TOTAL 0.2 MG/DL (0.2-1.0); CALCIUM LEVEL 8.4 MG/DL (8.8-10.2); CREATININE FOR GFR 1.29 MG/DL (0.70-1.30); GLOMERULAR FILTRATION RATE 58.6 (>42); POTASSIUM SERUM 4.5 MEQ/L (3.5-5.1); TOTAL PROTEIN 6.8 GM/DL (6.4-8.2)
== END ==
LOC: M SFHCADAM 08:35
PROVIDERS: ATTEND Nurse Practitioner Family
DX: E11.42 Type 2 diabetes mellitus with diabetic polyneuropathy (principal)

== ENCOUNTER → 2021-02-24 | Outpatient (REF) | payer MEDICARE, MEDICAID ==
[~2021-02-24] MED LIST changes: +DONE-1 PO; -DONETAB6 PO; +FLUO-96 PO; -FLUO20CA20 PO; +LOSA50TA28; +LOSA50TA28 PO; -LOSA50TA88; -LOSA50TA88 PO
[2021-02-24 17:41] LABS: APPEARANCE, URINE CLOUDY (CLEAR); BACTERIA, URINE AUTO 3+ (NEGATIVE); BILIRUBIN, URINE AUTO NEGATIVE (NEGATIVE); BLOOD, URINE BLOOD NEGATIVE (NEGATIVE); COLOR, URINE YELLOW (YELLOW); GLUCOSE, URINE (UA) AUTO 3+ mg/dL (NEGATIVE); KETONE, URINE AUTO TRACE mg/dL (NEGATIVE); LEUKOCYTE ESTERASE, URINE AUTO 3+ (NEGATIVE); NITRITE, URINE AUTO POSITIVE (NEGATIVE); PROTEIN, URINE AUTO 1+ mg/dL (NEGATIVE); RBC, URINE AUTO 0 /HPF (0-3); SPECIFIC GRAVITY URINE AUTO 1.024 (1.002-1.035); SQUAMOUS EPITHELIAL CELL UR AU 2 /HPF (0-6); UROBILINOGEN, URINE AUTO 0.2 mg/dL (0.0-2.0); WBC, URINE AUTO TNTC /HPF (0-3)
== END ==
LOC: M SMT 16:56
PROVIDERS: ATTEND Nurse Practitioner Women's Health
DX: R30.0 Dysuria (principal)

== ENCOUNTER 2021-03-06 20:42 | Emergency (ER) | payer MEDICARE, MEDICAID ==
[~2021-03-06] VITALS: Ht 190.5 cm; Wt 119.1 kg
[~2021-03-06 20:42] MED LIST changes: -DONE-1 PO; +DONETAB6 PO; -FLUO-96 PO; +FLUO20CA20 PO; -LOSA50TA28; -LOSA50TA28 PO; +LOSA50TA88; +LOSA50TA88 PO
[2021-03-06 21:33] LABS: BASO % 0.4 % (0.0-1.0); EOS # 0.4 10^3/uL (0.0-0.5); EOS % 4.4 % (0.0-3.0); HEMATOCRIT 36.1 % (42.0-52.0); HEMOGLOBIN 12.1 g/dl (13.5-17.5); LYMPH % 32.3 % (24.0-44.0); MEAN CORPUSCULAR HEMOGLOBIN 31.2 pg (27.0-33.0); MEAN CORPUSCULAR HGB CONC 33.5 g/dl (32.0-36.5); MONO # 0.6 10^3/uL (0.0-0.8); MONO % 6.7 % (2.0-8.0); NEUTROPHILS # 5.2 10^3/uL (1.5-8.5); NEUTROPHILS % 55.5 % (36.0-66.0); PLATELET COUNT, AUTOMATED 228 10^3/uL (150-450); RED BLOOD COUNT 3.88 10^6/uL (4.30-6.10); WHITE BLOOD COUNT 9.4 10^3/uL (4.0-10.0)
[2021-03-06 21:56] LABS: BLOOD UREA NITROGEN 19 MG/DL (7-18); CALCIUM LEVEL 8.2 MG/DL (8.8-10.2); CARBON DIOXIDE LEVEL 24 MEQ/L (21-32); CHLORIDE LEVEL 103 MEQ/L (98-107); CREATININE FOR GFR 1.26 MG/DL (0.70-1.30); GLOMERULAR FILTRATION RATE > 60.0 (>42); GLUCOSE, FASTING 275 MG/DL (70-100); MAGNESIUM LEVEL 1.9 MG/DL (1.8-2.4); POTASSIUM SERUM 4.3 MEQ/L (3.5-5.1); SODIUM LEVEL 136 MEQ/L (136-145)
--- NOTE | 2021-03-06 21:58 | REPVR ---
PROCEDURE INFORMATION: Exam: CT Head Without Contrast Exam date and time: 03/06/2021 9:11 PM Age: 71 years old Clinical indication: Visual disturbance; Additional info: Blurred vision TECHNIQUE: Imaging protocol: Computed tomography of the head without contrast. Radiation optimization: All CT scans at this facility use at least one of these dose optimization techniques: automated exposure control; mA and/or kV adjustment per patient size (includes targeted exams where dose is matched to clinical indication); or iterative reconstruction. COMPARISON: MRI-Brain without Contrast 12/31/2019 4:34 PM FINDINGS: Brain: There is mild diffuse cerebellar atrophy. There is mild to moderate age related parenchymal volume loss. White matter changes are demonstrated in the subcortical, centrum semiovale and periventricular white matter consistent with chronic age related small vessel ischemic changes. Cerebral ventricles: The degree of ventricular dilatation is normal for age and/or degree of atrophy present. Paranasal sinuses: Small retention cyst left maxillary sinus. Inflammatory changes demonstrated in both ethmoid sinuses. Mastoid air cells: Visualized mastoid air cells are well aerated. Bones/joints: Unremarkable. No acute fracture. Soft tissues: Unremarkable. IMPRESSION: 1. There is mild diffuse cerebellar atrophy. 2. There is mild to moderate age related parenchymal volume loss. White matter changes are demonstrated in the subcortical, centrum semiovale and periventricular white matter consistent with chronic age related small vessel ischemic changes. 3. The degree of ventricular dilatation is normal for age and/or degree of atrophy present. Electronically signed by: Salazar Ortega On 03/06/2021 21:57:50 PM
--- NOTE | 2021-03-06 21:59 | REPVR ---
PROCEDURE INFORMATION: Exam: XR Chest Exam date and time: 03/06/2021 9:45 PM Age: 71 years old Clinical indication: Other: Weakness TECHNIQUE: Imaging protocol: XR of the chest. Views: 1 view. COMPARISON: CT Chest without contrast 12/31/2019 1:39 PM FINDINGS: Lungs: Unremarkable. No consolidation. Pleural spaces: Unremarkable. No pleural effusion. No pneumothorax. Heart/Mediastinum: Unremarkable. No cardiomegaly. Diaphragm: Elevated left hemidiaphragm. Findings stable in comparison to prior studies. Bones/joints: Unremarkable. IMPRESSION: No acute findings. Electronically signed by: Salazar Ortega On 03/06/2021 21:58:42 PM
[2021-03-06] MEDS ORDERED: NS 1,000 ML IV ONE (23:25)
[2021-03-07] MEDS ORDERED: NS 1,000 ML IV ONE (01:35)
[2021-03-07 06:24] VITALS: BP 138/86
--- NOTE | 2021-03-07 19:24 | ECGEPIP ---
[facility] - ED Test Date: 2021-03-06 Pat Name: RACHEL PEOPLES Department: Room: - Gender: Male [employer]ator: ISIDRO : 1950 Requested By: ROBERT Colemna Order Number: [id number] Reading MD: Shania Riojas Measurements Intervals [place] Rate: 75 P: 70 MA: 180 QRS: 1 QRSD: 102 T: 59 QT: 406 QTc: 453 Interpretive Statements Normal sinus rhythm with sinus arrhythmia Nonspecific T wave abnormality similar 12/31/19 Electronically Signed on 03-07-2021 19:24:13 EST by Shania Riojas
== END 2021-03-07 06:25 | disposition home or self-care (01) ==
LOC: M ED 20:42
DX: I95.1 Orthostatic hypotension (principal); I50.9 Heart failure, unspecified; E11.9 Type 2 diabetes mellitus without complications; I10 Essential (primary) hypertension; M10.9 Gout, unspecified; R56.9 Unspecified convulsions; N18.9 Chronic kidney disease, unspecified; G25.81 Restless legs syndrome; K80.20 Calculus of gallbladder without cholecystitis without obstruction; F43.10 Post-traumatic stress disorder, unspecified; G47.33 Obstructive sleep apnea (adult) (pediatric); Z87.820 Personal history of traumatic brain injury; Z79.899 Other long term (current) drug therapy; Z88.8 Allergy status to other drugs, medicaments and biological substances; Z91.041 Radiographic dye allergy status; Z88.0 Allergy status to penicillin; Z88.2 Allergy status to sulfonamides; Z88.1 Allergy status to other antibiotic agents

== ENCOUNTER → 2021-04-12 | Outpatient (REF) | payer MEDICARE, MEDICAID ==
[~2021-04-12] MED LIST changes: +DONE-1 PO; -DONETAB6 PO; +FLUO-96 PO; -FLUO20CA20 PO; +LOSA50TA28; +LOSA50TA28 PO; -LOSA50TA88; -LOSA50TA88 PO
== END ==
LOC: M SFHCADAM 08:41
PROVIDERS: ATTEND Physician Assistant
DX: R97.20 Elevated prostate specific antigen [PSA] (principal)

== ENCOUNTER → 2021-05-15 | Outpatient (REF) | payer MEDICARE, MEDICAID ==
[~2021-05-15] MED LIST changes: -FEXO60TA71 PO; +FEXO60TA98 PO
== END ==
LOC: M LAB REF 12:43
PROVIDERS: ATTEND Internal Medicine Nephrology
DX: N18.31 Chronic kidney disease, stage 3a (principal); E83.42 Hypomagnesemia; R33.9 Retention of urine, unspecified

== ENCOUNTER 2021-05-24 14:39 | Outpatient (CLI) | payer MEDICARE, MEDICAID ==
[~2021-05-24 14:39] MED LIST changes: +ERTAPENEM SODIUM 1 GM in NS MINI-BAG PLUS 50 ML IV SCH
[2021-05-24 15:02] VITALS: BP 132/74
[2021-05-24 15:31] VITALS: BP 167/75
== END 2021-05-24 15:35 | disposition home or self-care (01) ==
LOC: M INFU 14:39
PROVIDERS: ATTEND Internal Medicine Nephrology
DX: R33.9 Retention of urine, unspecified (principal); Z88.1 Allergy status to other antibiotic agents; Z88.2 Allergy status to sulfonamides; Z88.8 Allergy status to other drugs, medicaments and biological substances; Z88.0 Allergy status to penicillin; Z91.041 Radiographic dye allergy status
CPT/HCPCS: 96365; J1335

== ENCOUNTER 2021-05-25 14:38 | Outpatient (CLI) | payer MEDICARE, MEDICAID ==
[~2021-05-25] VITALS: Ht 182.9 cm; Wt 114.1 kg
[~2021-05-25 14:38] MED LIST changes: -ERTAPENEM SODIUM 1 GM in NS MINI-BAG PLUS 50 ML IV SCH
[2021-05-25] MEDS ORDERED: ERTAPENEM SODIUM 1 GM in NS MINI-BAG PLUS 50 ML IV ONE (15:00)
[2021-05-25 15:09] VITALS: BP 141/75
[2021-05-25 15:45] VITALS: BP 144/77
== END 2021-05-25 15:40 | disposition home or self-care (01) ==
LOC: M INFU 14:38
PROVIDERS: ATTEND Internal Medicine Nephrology
DX: R33.9 Retention of urine, unspecified (principal)
CPT/HCPCS: 96365; J1335

== ENCOUNTER 2021-05-26 13:11 | Outpatient (CLI) | payer MEDICARE, MEDICAID ==
[~2021-05-26] VITALS: Ht 177.8 cm; Wt 119.0 kg
[~2021-05-26 13:11] MED LIST changes: +ERTAPENEM SODIUM 1 GM in NS MINI-BAG PLUS 50 ML IV ONE
[2021-05-26 13:15] VITALS: BP 150/75
[2021-05-26 14:10] VITALS: BP 165/75
== END 2021-05-26 14:10 | disposition home or self-care (01) ==
LOC: M INFU 13:11
PROVIDERS: ATTEND Internal Medicine Nephrology
DX: R33.9 Retention of urine, unspecified (principal); Z88.1 Allergy status to other antibiotic agents; Z88.2 Allergy status to sulfonamides; Z88.8 Allergy status to other drugs, medicaments and biological substances; Z88.0 Allergy status to penicillin; Z91.041 Radiographic dye allergy status

== ENCOUNTER 2021-05-27 09:16 | Outpatient (CLI) | payer MEDICARE, MEDICAID ==
[~2021-05-27] VITALS: Ht 190.5 cm; Wt 119.0 kg
[~2021-05-27 09:16] MED LIST changes: -ERTAPENEM SODIUM 1 GM in NS MINI-BAG PLUS 50 ML IV ONE
[2021-05-27 10:00] VITALS: BP 121/71
[2021-05-27] MEDS ORDERED: ERTAPENEM SODIUM 1 GM in NS MINI-BAG PLUS 50 ML IV ONE (11:00)
[2021-05-27 12:00] VITALS: BP 137/76
== END 2021-05-27 12:30 | disposition home or self-care (01) ==
LOC: M INFU 09:16 → M MS4PR 09:42 → M INFU 12:30
PROVIDERS: ATTEND Internal Medicine Nephrology
DX: R33.9 Retention of urine, unspecified (principal); Z88.1 Allergy status to other antibiotic agents; Z88.2 Allergy status to sulfonamides; Z88.8 Allergy status to other drugs, medicaments and biological substances; Z88.0 Allergy status to penicillin; Z91.041 Radiographic dye allergy status
CPT/HCPCS: 96365; J1335

== ENCOUNTER 2021-05-28 11:33 | Outpatient (CLI) | payer MEDICARE, MEDICAID ==
[~2021-05-28] VITALS: Ht 190.5 cm; Wt 117.7 kg
[2021-05-28 11:45] VITALS: BP 143/64
[2021-05-28] MEDS ORDERED: diphenhydrAMINE 25MG CAP PO ONE (11:55)
[2021-05-28] MEDS ORDERED: ERTAPENEM SODIUM 1 GM in NS MINI-BAG PLUS 50 ML IV ONE (13:00)
[2021-05-28 13:51] VITALS: BP 146/72
== END 2021-05-28 15:10 | disposition home or self-care (01) ==
LOC: M INFU 11:33 → UNDOADMIN 12:08 → M MS4PR 12:08 → UNDODISIN 15:10 → M INFU 15:10
PROVIDERS: ATTEND Internal Medicine Nephrology
DX: R33.9 Retention of urine, unspecified (principal); Z88.1 Allergy status to other antibiotic agents; Z88.2 Allergy status to sulfonamides; Z88.8 Allergy status to other drugs, medicaments and biological substances; Z88.0 Allergy status to penicillin; Z91.041 Radiographic dye allergy status
CPT/HCPCS: 96365; J1335

== ENCOUNTER 2021-05-30 08:33 | Emergency (ER) | payer MEDICAID, MEDICARE ==
[~2021-05-30] VITALS: Ht 190.5 cm; Wt 158.9 kg
[2021-05-30 10:57] VITALS: O2SAT 94
[2021-05-30 11:13] VITALS: BP 138/72
== END 2021-05-30 13:29 | disposition home or self-care (01) ==
LOC: EDBD 08:33 → M ED 08:33
DX: S70.02XA Contusion of left hip, initial encounter (principal); W19.XXXA Unspecified fall, initial encounter; Y92.524 Gas station as the place of occurrence of the external cause; Y93.9 Activity, unspecified; Y99.9 Unspecified external cause status; I50.9 Heart failure, unspecified; I10 Essential (primary) hypertension; R56.9 Unspecified convulsions; M10.9 Gout, unspecified; G47.33 Obstructive sleep apnea (adult) (pediatric); Z87.820 Personal history of traumatic brain injury; F43.10 Post-traumatic stress disorder, unspecified; G25.81 Restless legs syndrome; M47.892 Other spondylosis, cervical region; M17.12 Unilateral primary osteoarthritis, left knee; Z79.4 Long term (current) use of insulin; Z79.899 Other long term (current) drug therapy; Z88.0 Allergy status to penicillin; Z88.2 Allergy status to sulfonamides; Z88.1 Allergy status to other antibiotic agents; Z88.8 Allergy status to other drugs, medicaments and biological substances; Z91.040 Latex allergy status

== ENCOUNTER → 2021-06-05 | Outpatient (REF) | payer MEDICARE ==
[2021-06-05 13:17] LABS: HEMATOCRIT 37.8 % (42.0-52.0); HEMOGLOBIN 12.4 g/dl (13.5-17.5); MEAN CORPUSCULAR HEMOGLOBIN 30.8 pg (27.0-33.0); MEAN CORPUSCULAR HGB CONC 32.8 g/dl (32.0-36.5); MEAN CORPUSCULAR VOLUME 93.8 fl (80.0-96.0); PLATELET COUNT, AUTOMATED 238 10^3/uL (150-450); RED BLOOD COUNT 4.03 10^6/uL (4.30-6.10)
[2021-06-05 14:05] LABS: ALBUMIN 3.3 GM/DL (3.2-5.2); BILIRUBIN,TOTAL 0.2 MG/DL (0.2-1.0); CALCIUM LEVEL 8.6 MG/DL (8.8-10.2); CHOLESTEROL RISK RATIO 2.654 (<5); CREATININE FOR GFR 1.3 MG/DL (0.70-1.30); GLOMERULAR FILTRATION RATE 57.9 (>42); POTASSIUM SERUM 4.3 MEQ/L (3.5-5.1); THYROID STIMULATING HORMONE 0.986 uIU/ML (0.358-3.740); TOTAL 25(OH) VITAMIN D 54.4 NG/ML (30.0-100.0); TOTAL PROTEIN 6.9 GM/DL (6.4-8.2)
[2021-06-05 15:05] LABS: HEMOGLOBIN A1c 7.9 %
== END ==
LOC: M LABDRWAD 12:10
PROVIDERS: ATTEND Internal Medicine Hematology
DX: E11.69 Type 2 diabetes mellitus with other specified complication (principal); Z79.899 Other long term (current) drug therapy

== ENCOUNTER → 2021-06-26 | Outpatient (CLI) | payer MEDICARE, OTHER ==
[2021-06-26 13:48] LABS: HEMATOCRIT 38.4 % (42.0-52.0); HEMOGLOBIN 12.6 g/dl (13.5-17.5); MEAN CORPUSCULAR HEMOGLOBIN 30.7 pg (27.0-33.0); MEAN CORPUSCULAR HGB CONC 32.8 g/dl (32.0-36.5); MEAN CORPUSCULAR VOLUME 93.7 fl (80.0-96.0); PLATELET COUNT, AUTOMATED 230 10^3/uL (150-450); WHITE BLOOD COUNT 10.2 10^3/uL (4.0-10.0)
[2021-06-26 14:31] LABS: ALBUMIN 3.3 GM/DL (3.2-5.2); BILIRUBIN,TOTAL 0.4 MG/DL (0.2-1.0); CALCIUM LEVEL 9.3 MG/DL (8.8-10.2); CREATININE FOR GFR 1.32 MG/DL (0.70-1.30); GLOMERULAR FILTRATION RATE 56.9 (>42); POTASSIUM SERUM 4.2 MEQ/L (3.5-5.1); TOTAL PROTEIN 7.2 GM/DL (6.4-8.2)
== END ==
LOC: M PLALAB 09:08
PROVIDERS: ATTEND Internal Medicine Hematology
DX: E11.69 Type 2 diabetes mellitus with other specified complication (principal)

== ENCOUNTER → 2021-06-26 | Outpatient (CLI) | payer MEDICAID, MEDICARE ==
[~2021-06-26] MED LIST changes: +ALBU2.5V10 INH; -ALBU83IN INH
== END ==
LOC: M RAD 11:44
PROVIDERS: ATTEND Internal Medicine Hematology
DX: R91.8 Other nonspecific abnormal finding of lung field (principal); J18.9 Pneumonia, unspecified organism; E11.69 Type 2 diabetes mellitus with other specified complication

== ENCOUNTER → 2021-09-22 | Outpatient (REF) | payer MEDICARE, MEDICAID | LOC: M SFHCADAM 09:42 | PROVIDERS: ATTEND Internal Medicine Hematology | DX: R97.20 Elevated prostate specific antigen [PSA] (principal) ==

== ENCOUNTER → 2021-09-25 | Outpatient (REF) | payer MEDICARE, MEDICAID ==
[2021-09-25 18:43] LABS: APPEARANCE, URINE HAZY (CLEAR); BACTERIA, URINE AUTO NEGATIVE (NEGATIVE); BILIRUBIN, URINE AUTO NEGATIVE (NEGATIVE); BLOOD, URINE BLOOD NEGATIVE (NEGATIVE); COLOR, URINE YELLOW (YELLOW); GLUCOSE, URINE (UA) AUTO 1+ mg/dL (NEGATIVE); KETONE, URINE AUTO NEGATIVE (NEGATIVE); LEUKOCYTE ESTERASE, URINE AUTO NEGATIVE (NEGATIVE); MUCUS, URINE SMALL (NEGATIVE); NITRITE, URINE AUTO NEGATIVE (NEGATIVE); PROTEIN, URINE AUTO NEGATIVE (NEGATIVE); RBC, URINE AUTO 0 /HPF (0-3); SPECIFIC GRAVITY URINE AUTO 1.024 (1.002-1.035); SQUAMOUS EPITHELIAL CELL UR AU 0 /HPF (0-6); UROBILINOGEN, URINE AUTO 0.2 mg/dL (0.0-2.0); WBC, URINE AUTO 5 /HPF (0-3)
== END ==
LOC: M SMT 16:50
PROVIDERS: ATTEND Physician Assistant
DX: R97.20 Elevated prostate specific antigen [PSA] (principal); Z79.899 Other long term (current) drug therapy

== ENCOUNTER → 2021-11-10 | Outpatient (REF) | payer MEDICARE, MEDICAID ==
[~2021-11-10] MED LIST changes: +FISH10005 PO; -FISH7.5C PO; +SIMV-253 PO; -ZOCO20TA PO
== END ==
LOC: M SMT 12:49
PROVIDERS: ATTEND Urology
DX: R97.20 Elevated prostate specific antigen [PSA] (principal)

== ENCOUNTER → 2022-01-25 | Outpatient (CLI) | payer MEDICARE, MEDICAID ==
[~2022-01-25] MED LIST changes: +FISH100015 PO; -[UNRECOGNIZED DRUG - CODE] PO
[2022-01-25 17:41] LABS: BASO # 0.1 10^3/uL (0.0-0.2); BASO % 0.5 % (0.0-1.0); EOS # 0.4 10^3/uL (0.0-0.5); HEMATOCRIT 37.6 % (42.0-52.0); HEMOGLOBIN 12.3 g/dl (13.5-17.5); LYMPH # 3.5 10^3/uL (1.5-5.0); MEAN CORPUSCULAR HEMOGLOBIN 30.4 pg (27.0-33.0); MEAN CORPUSCULAR HGB CONC 32.7 g/dl (32.0-36.5); MEAN CORPUSCULAR VOLUME 92.8 fl (80.0-96.0); MONO # 0.7 10^3/uL (0.0-0.8); MONO % 6.7 % (2.0-8.0); NEUTROPHILS # 5.3 10^3/uL (1.5-8.5); NEUTROPHILS % 53.3 % (36.0-66.0); PLATELET COUNT, AUTOMATED 252 10^3/uL (150-450); RED BLOOD COUNT 4.05 10^6/uL (4.30-6.10); WHITE BLOOD COUNT 9.9 10^3/uL (4.0-10.0)
[2022-01-25 17:54] LABS: APPEARANCE, URINE MANUAL HAZY (CLEAR); BILIRUBIN, URINE MANUAL 1+ (NEGATIVE); COLOR, URINE MANUAL YELLOW (YELLOW); GLUCOSE, URINE (UA) MANUAL 2+(250 MG/DL) mg/dL (NEGATIVE); KETONE, URINE MANUAL NEGATIVE (NEGATIVE); LEUKOCYTE ESTERASE, URINE MAN POSITIVE (NEGATIVE); NITRITE, URINE MANUAL POSITIVE (NEGATIVE); PROTEIN, URINE MANUAL TRACE mg/dL (NEGATIVE); UROBILINOGEN, URINE MANUAL NORMAL (NORMAL)
[2022-01-25 17:55] LABS: BLOOD URINE MANUAL TRACE (NEGATIVE)
[2022-01-25 18:00] LABS: ERYTHROCYTE SEDIMENTATION RATE 41 mm/hr (0-20)
[2022-01-25 18:12] LABS: ALBUMIN 3.4 GM/DL (3.2-5.2); ALT/SGPT 51 U/L (12-78); BILIRUBIN,TOTAL 0.2 MG/DL (0.2-1.0); BLOOD UREA NITROGEN 18 MG/DL (7-18); C REACTIVE PROTEIN QUANTITATIV 0.32 MG/DL (0.00-0.30); CALCIUM LEVEL 8.8 MG/DL (8.8-10.2); CARBON DIOXIDE LEVEL 28 MEQ/L (21-32); CHLORIDE LEVEL 105 MEQ/L (98-107); CREATININE FOR GFR 1.18 MG/DL (0.70-1.30); GLOMERULAR FILTRATION RATE > 60.0 (>42); GLUCOSE, FASTING 160 MG/DL (70-100); MAGNESIUM LEVEL 1.5 MG/DL (1.8-2.4); NT-PRO BNP 114 PG/ML (<125); POTASSIUM SERUM 4.4 MEQ/L (3.5-5.1); SODIUM LEVEL 136 MEQ/L (136-145); TOTAL PROTEIN 7.3 GM/DL (6.4-8.2)
[2022-01-25 19:03] LABS: BACTERIA, URINE LARGE AMOUNT; MUCUS, URINE MOD AMOUNT (NEGATIVE); SQUAMOUS EPITHELIAL CELL URINE SMALL AMOUNT /hpf (SMALL AMT); WBC, URINE TNTC /hpf (0-3)
== END ==
LOC: M PLALAB 15:43
PROVIDERS: ATTEND Physician Assistant
DX: R07.9 Chest pain, unspecified (principal); R06.02 Shortness of breath; R53.1 Weakness; R35.0 Frequency of micturition

== ENCOUNTER → 2022-02-01 | Outpatient (REF) | payer MEDICARE, MEDICAID ==
[~2022-02-01] MED LIST changes: +METF500T13 PO
[2022-02-02 14:45] LABS: APPEARANCE, URINE MANUAL CLEAR (CLEAR); COLOR, URINE MANUAL YELLOW (YELLOW)
[2022-02-02 14:46] LABS: BILIRUBIN, URINE MANUAL NEGATIVE (NEGATIVE); BLOOD URINE MANUAL NEGATIVE (NEGATIVE); GLUCOSE, URINE (UA) MANUAL 4+(1000 MG/DL) mg/dL (NEGATIVE); KETONE, URINE MANUAL NEGATIVE (NEGATIVE); LEUKOCYTE ESTERASE, URINE MAN NEGATIVE (NEGATIVE); NITRITE, URINE MANUAL NEGATIVE (NEGATIVE); PROTEIN, URINE MANUAL NEGATIVE (NEGATIVE); UROBILINOGEN, URINE MANUAL NORMAL (NORMAL)
== END ==
LOC: M SFHCPLAZ 14:23
PROVIDERS: ATTEND Internal Medicine Hematology
DX: N10 Acute pyelonephritis (principal)

== ENCOUNTER → 2022-02-02 | Outpatient (CLI) | payer MEDICARE, MEDICAID ==
[~2022-02-02] MED LIST changes: -METF500T13 PO
== END ==
LOC: M PLAIMG 10:56
PROVIDERS: ATTEND Internal Medicine Hematology
DX: N10 Acute pyelonephritis (principal); K80.20 Calculus of gallbladder without cholecystitis without obstruction; N28.1 Cyst of kidney, acquired; K57.90 Diverticulosis of intestine, part unspecified, without perforation or abscess without bleeding; I70.0 Atherosclerosis of aorta; M51.36 Other intervertebral disc degeneration, lumbar region

== ENCOUNTER 2022-02-15 20:52 | Emergency (ER) | payer MEDICARE, MEDICAID ==
[~2022-02-15] VITALS: Ht 190.5 cm; Wt 118.0 kg
[2022-02-15] MEDS ORDERED: METF500T13 PO (21:10)
[2022-02-16 04:50] VITALS: BP 145/76
== END 2022-02-16 04:45 | disposition left against medical advice (07) ==
LOC: M ED 20:52
DX: M79.604 Pain in right leg (principal); E11.9 Type 2 diabetes mellitus without complications; E03.9 Hypothyroidism, unspecified; E78.5 Hyperlipidemia, unspecified; C61 Malignant neoplasm of prostate; Z87.442 Personal history of urinary calculi; Z88.0 Allergy status to penicillin; Z88.1 Allergy status to other antibiotic agents; Z88.2 Allergy status to sulfonamides; Z91.041 Radiographic dye allergy status; Z53.9 Procedure and treatment not carried out, unspecified reason

== ENCOUNTER → 2022-05-03 | Outpatient (CLI) | payer MEDICARE, MEDICAID ==
[~2022-05-03] MED LIST changes: +METF500T13 PO
[2022-05-03 15:34] LABS: TOTAL 25(OH) VITAMIN D 48.3 NG/ML (20.0-100.0)
[2022-05-03 15:36] LABS: HEMATOCRIT 38.5 % (42.0-52.0); HEMOGLOBIN 12.5 g/dl (13.5-17.5); MEAN CORPUSCULAR HEMOGLOBIN 30.3 pg (27.0-33.0); MEAN CORPUSCULAR HGB CONC 32.5 g/dl (32.0-36.5); MEAN CORPUSCULAR VOLUME 93.2 fl (80.0-96.0); PLATELET COUNT, AUTOMATED 223 10^3/uL (150-450); RED BLOOD COUNT 4.13 10^6/uL (4.30-6.10); THYROID STIMULATING HORMONE 1.208 uIU/ML (0.55-4.78); WHITE BLOOD COUNT 8.6 10^3/uL (4.0-10.0)
[2022-05-03 15:37] LABS: ALBUMIN 3.4 G/DL (3.2-5.2); ALKALINE PHOSPHATASE 71 U/L (46-116); ALT/SGPT 36 U/L (7.0-40); AST/SGOT 20 U/L (<34); BILIRUBIN,TOTAL 0.3 MG/DL (0.3-1.2); BLOOD UREA NITROGEN 17 MG/DL (9-23); C REACTIVE PROTEIN QUANTITATIV < 0.40 MG/DL (<1.0); CALCIUM LEVEL 8.9 MG/DL (8.3-10.6); CARBON DIOXIDE LEVEL 25 MMOL/L (20-31); CHLORIDE LEVEL 101 MMOL/L (98-107); CREATININE FOR GFR 1.09 MG/DL (0.70-1.30); FREE T4 1.02 NG/DL (0.89-1.76); GLOMERULAR FILTRATION RATE > 60.0 (>42); GLUCOSE, FASTING 369 MG/DL (74-106); POTASSIUM SERUM 4.1 MMOL/L (3.5-5.1); SODIUM LEVEL 136 MMOL/L (136-145); TOTAL PROTEIN 6.9 G/DL (5.7-8.2)
[2022-05-03 15:39] LABS: VITAMIN B12 LEVEL 443 PG/ML (211-911)
[2022-05-03 17:11] LABS: HEMOGLOBIN A1c 9.4 % (4.0-6.0)
== END ==
LOC: M PLALAB 11:10
PROVIDERS: ATTEND Internal Medicine Hematology
DX: E11.42 Type 2 diabetes mellitus with diabetic polyneuropathy (principal)

== ENCOUNTER → 2022-05-10 | Outpatient (CLI) | payer MEDICAID, MEDICARE | LOC: M LABSMTC 11:38 | PROVIDERS: ATTEND Ophthalmology | DX: Z01.812 Encounter for preprocedural laboratory examination (principal); Z20.822 Contact with and (suspected) exposure to COVID-19 ==

== ENCOUNTER → 2022-05-24 | Outpatient (REF) | payer MEDICARE, MEDICAID ==
[2022-05-24 18:04] LABS: POTASSIUM SERUM 4.3 MMOL/L (3.5-5.1)
== END ==
LOC: M LAB REF 17:10
PROVIDERS: ATTEND Internal Medicine Nephrology
DX: N18.31 Chronic kidney disease, stage 3a (principal)

== ENCOUNTER → 2022-06-13 | Outpatient (CLI) | payer MEDICARE, MEDICAID | LOC: M PLALAB 09:21 | PROVIDERS: ATTEND Urology | DX: C61 Malignant neoplasm of prostate (principal) ==

== ENCOUNTER → 2022-07-20 | Outpatient (REF) | payer MEDICARE, MEDICAID ==
[~2022-07-20] MED LIST changes: -AK-T0.3S; +TOBR0.3S30
[2022-07-20 13:47] LABS: APPEARANCE, URINE TURBID (CLEAR); BACTERIA, URINE AUTO NEGATIVE (NEGATIVE); BILIRUBIN, URINE AUTO NEGATIVE (NEGATIVE); BLOOD, URINE BLOOD NEGATIVE (NEGATIVE); COLOR, URINE AMBER (YELLOW); GLUCOSE, URINE (UA) AUTO 2+ mg/dL (NEGATIVE); KETONE, URINE AUTO TRACE mg/dL (NEGATIVE); LEUKOCYTE ESTERASE, URINE AUTO NEGATIVE (NEGATIVE); MUCUS, URINE SMALL (NEGATIVE); NITRITE, URINE AUTO NEGATIVE (NEGATIVE); PROTEIN, URINE AUTO NEGATIVE (NEGATIVE); RBC, URINE AUTO 1 /HPF (0-3); SPECIFIC GRAVITY URINE AUTO 1.028 (1.002-1.035); SQUAMOUS EPITHELIAL CELL UR AU 0 /HPF (0-6); UROBILINOGEN, URINE AUTO 0.2 mg/dL (0.0-2.0); WBC, URINE AUTO 1 /HPF (0-3)
== END ==
LOC: M SFHCADAM 07:58
PROVIDERS: ATTEND Urology
DX: N39.0 Urinary tract infection, site not specified (principal)

== ENCOUNTER → 2022-09-13 | Outpatient (CLI) | payer MEDICARE, MEDICAID ==
[2022-09-13 15:16] LABS: HEMATOCRIT 36.9 % (42.0-52.0); HEMOGLOBIN 11.8 g/dl (13.5-17.5); MEAN CORPUSCULAR HEMOGLOBIN 29.7 pg (27.0-33.0); MEAN CORPUSCULAR VOLUME 92.9 fl (80.0-96.0); PLATELET COUNT, AUTOMATED 267 10^3/uL (150-450); RED BLOOD COUNT 3.97 10^6/uL (4.30-6.10); WHITE BLOOD COUNT 8.5 10^3/uL (4.0-10.0)
[2022-09-13 15:22] LABS: C REACTIVE PROTEIN QUANTITATIV < 0.40 MG/DL (<1.0)
[2022-09-13 15:24] LABS: ALBUMIN 3.1 G/DL (3.2-5.2); ALKALINE PHOSPHATASE 71 U/L (46-116); ALT/SGPT 37 U/L (7.0-40); AST/SGOT 15 U/L (<34); BILIRUBIN,TOTAL 0.2 MG/DL (0.3-1.2); BLOOD UREA NITROGEN 25 MG/DL (9-23); CALCIUM LEVEL 9.5 MG/DL (8.3-10.6); CARBON DIOXIDE LEVEL 26 MMOL/L (20-31); CHLORIDE LEVEL 106 MMOL/L (98-107); CHOLESTEROL LEVEL 139 MG/DL (<200); GLOMERULAR FILTRATION RATE > 60.0 (>42); GLUCOSE, FASTING 243 MG/DL (74-106); HDL CHOLESTEROL 53.4 MG/DL (>40); LDL CHOLESTEROL 61.4 MG/DL (<100); NON-HDL-C 85.6 MG/DL; POTASSIUM SERUM 4.4 MMOL/L (3.5-5.1); SODIUM LEVEL 137 MMOL/L (136-145); THYROID STIMULATING HORMONE 1.569 uIU/ML (0.55-4.78); TOTAL PROTEIN 6.5 G/DL (5.7-8.2); TRIGLYCERIDES LEVEL 121 MG/DL (<150)
[2022-09-13 15:25] LABS: TOTAL 25(OH) VITAMIN D 28.8 NG/ML (20.0-100.0); VITAMIN B12 LEVEL 409 PG/ML (211-911)
[2022-09-13 17:57] LABS: HEMOGLOBIN A1c 7.9 % (4.0-6.0)
[2022-09-14 11:29] LABS: CREATININE, URINE 98.2 MG/DL; MAU/CREAT RATIO 79.4 MCG/MG (0.0-30.0)
== END ==
LOC: M PLALAB 11:51
PROVIDERS: ATTEND Internal Medicine Hematology
DX: E11.69 Type 2 diabetes mellitus with other specified complication (principal); R97.20 Elevated prostate specific antigen [PSA]; Z79.899 Other long term (current) drug therapy

== ENCOUNTER → 2022-11-05 | Outpatient (CLI) | payer MEDICARE, MEDICAID | LOC: M PLAIMG 09:05 | PROVIDERS: ATTEND Internal Medicine Hematology | DX: M50.321 Other cervical disc degeneration at C4-C5 level (principal); M50.322 Other cervical disc degeneration at C5-C6 level; M50.323 Other cervical disc degeneration at C6-C7 level; M25.78 Osteophyte, vertebrae ==

== ENCOUNTER 2022-11-08 15:45 | Emergency (ER) | payer MEDICARE, MEDICAID ==
[~2022-11-08] VITALS: Ht 182.9 cm; Wt 118.2 kg
[2022-11-08 15:45] VITALS: BP 162/80; TEMP 97.8; O2SAT 99
== END 2022-11-08 18:19 | disposition home or self-care (01) ==
LOC: M ED 15:45
DX: M23.92 Unspecified internal derangement of left knee (principal); W06.XXXA Fall from bed, initial encounter; E11.9 Type 2 diabetes mellitus without complications; Y92.009 Unspecified place in unspecified non-institutional (private) residence as the place of occurrence of the external cause; Z79.899 Other long term (current) drug therapy; Z79.4 Long term (current) use of insulin; Z88.1 Allergy status to other antibiotic agents; Z88.2 Allergy status to sulfonamides; Z88.0 Allergy status to penicillin; Z88.8 Allergy status to other drugs, medicaments and biological substances; Z91.041 Radiographic dye allergy status

== ENCOUNTER 2022-12-19 11:58 | Emergency (ER) | payer MEDICARE, MEDICAID ==
[~2022-12-19] VITALS: Ht 182.9 cm; Wt 115.0 kg
[2022-12-19] MEDS ORDERED: HUMU1INJ (12:53)
[2022-12-19] MEDS ORDERED: NS 1,000 ML IV ONE (15:25)
[2022-12-19] MEDS ORDERED: ONDANSETRON 4MG 2ML VIAL IV ONE (15:25)
[2022-12-19] MEDS ORDERED: FAMOTIDINE 20MG/2ML VIAL IVP ONE (15:25)
[2022-12-19 16:04] LABS: BASO % 0.2 % (0.0-1.0); EOS # 0.2 10^3/uL (0.0-0.5); EOS % 1.4 % (0.0-3.0); HEMATOCRIT 38.7 % (42.0-52.0); HEMOGLOBIN 12.6 g/dl (13.5-17.5); LYMPH # 2.7 10^3/uL (1.5-5.0); LYMPH % 23.4 % (24.0-44.0); MEAN CORPUSCULAR HEMOGLOBIN 29.9 pg (27.0-33.0); MEAN CORPUSCULAR HGB CONC 32.6 g/dl (32.0-36.5); MEAN CORPUSCULAR VOLUME 91.7 fl (80.0-96.0); MONO # 0.7 10^3/uL (0.0-0.8); MONO % 6.2 % (2.0-8.0); NEUTROPHILS # 7.7 10^3/uL (1.5-8.5); NEUTROPHILS % 68.4 % (36.0-66.0); PLATELET COUNT, AUTOMATED 252 10^3/uL (150-450); RED BLOOD COUNT 4.22 10^6/uL (4.30-6.10); WHITE BLOOD COUNT 11.3 10^3/uL (4.0-10.0)
[2022-12-19 16:34] LABS: LIPASE 42 U/L (12-53)
[2022-12-19 16:36] LABS: ALBUMIN 3.6 G/DL (3.2-5.2); ALKALINE PHOSPHATASE 81 U/L (46-116); ALT/SGPT 41 U/L (7.0-40); AST/SGOT 22 U/L (<34); BILIRUBIN,DIRECT 0.1 MG/DL (<0.4); BILIRUBIN,TOTAL 0.2 MG/DL (0.3-1.2); BLOOD UREA NITROGEN 18 MG/DL (9-23); CARBON DIOXIDE LEVEL 27 MMOL/L (20-31); CHLORIDE LEVEL 103 MMOL/L (98-107); CREATININE FOR GFR 1.08 MG/DL (0.70-1.30); GLOMERULAR FILTRATION RATE > 60.0 (>42); GLUCOSE, FASTING 133 MG/DL (74-106); POTASSIUM SERUM 4.2 MMOL/L (3.5-5.1); SODIUM LEVEL 136 MMOL/L (136-145); TOTAL PROTEIN 7.3 G/DL (5.7-8.2)
[2022-12-19] MEDS ORDERED: ONDA4TAB6 PO (16:52)
[2022-12-19 17:01] VITALS: BP 176/72; TEMP 98.5; O2SAT 99
== END 2022-12-19 17:31 | disposition home or self-care (01) ==
LOC: M ED 11:58
DX: R11.2 Nausea with vomiting, unspecified (principal); I50.22 Chronic systolic (congestive) heart failure; I10 Essential (primary) hypertension; K21.9 Gastro-esophageal reflux disease without esophagitis; E78.5 Hyperlipidemia, unspecified; F41.9 Anxiety disorder, unspecified; F31.9 Bipolar disorder, unspecified; N18.9 Chronic kidney disease, unspecified; Z88.0 Allergy status to penicillin; Z88.1 Allergy status to other antibiotic agents; Z88.2 Allergy status to sulfonamides; Z88.8 Allergy status to other drugs, medicaments and biological substances; Z91.041 Radiographic dye allergy status; Z79.52 Long term (current) use of systemic steroids; Z79.811 Long term (current) use of aromatase inhibitors; Z79.899 Other long term (current) drug therapy
CPT/HCPCS: 80048; 80076; 83690; 85025; 96361; 96374; 99284; J2405

== ENCOUNTER → 2023-01-17 | Outpatient (CLI) | payer MEDICARE, MEDICAID ==
[~2023-01-17] MED LIST changes: +GLIP5TAB17 PO; -GLIP5TAB8 PO; +HUMU1INJ; +ONDA4TAB6 PO
[2023-01-17 14:10] LABS: C REACTIVE PROTEIN QUANTITATIV < 0.40 MG/DL (<1.0)
[2023-01-17 14:16] LABS: HEMATOCRIT 38.2 % (42.0-52.0); HEMOGLOBIN 12.7 g/dl (13.5-17.5); MEAN CORPUSCULAR HEMOGLOBIN 30.5 pg (27.0-33.0); MEAN CORPUSCULAR HGB CONC 33.2 g/dl (32.0-36.5); MEAN CORPUSCULAR VOLUME 91.6 fl (80.0-96.0); PLATELET COUNT, AUTOMATED 262 10^3/uL (150-450); RED BLOOD COUNT 4.17 10^6/uL (4.30-6.10)
[2023-01-17 14:18] LABS: ALBUMIN 3.4 G/DL (3.2-5.2); ALKALINE PHOSPHATASE 74 U/L (46-116); ALT/SGPT 28 U/L (7.0-40); AST/SGOT 15 U/L (<34); BILIRUBIN,TOTAL 0.3 MG/DL (0.3-1.2); BLOOD UREA NITROGEN 21 MG/DL (9-23); CALCIUM LEVEL 9.3 MG/DL (8.3-10.6); CARBON DIOXIDE LEVEL 26 MMOL/L (20-31); CHLORIDE LEVEL 103 MMOL/L (98-107); CHOLESTEROL LEVEL 127 MG/DL (<200); CHOLESTEROL RISK RATIO 2.54 (<5); CREATININE FOR GFR 1.16 MG/DL (0.70-1.30); FREE T4 1.18 NG/DL (0.89-1.76); GLOMERULAR FILTRATION RATE > 60.0 (>42); GLUCOSE, FASTING 167 MG/DL (74-106); LDL CHOLESTEROL 55.4 MG/DL (<100); POTASSIUM SERUM 4.7 MMOL/L (3.5-5.1); SODIUM LEVEL 137 MMOL/L (136-145); THYROID STIMULATING HORMONE 1.054 uIU/ML (0.55-4.78); TOTAL 25(OH) VITAMIN D 30.3 NG/ML (20.0-100.0); TRIGLYCERIDES LEVEL 108 MG/DL (<150); VITAMIN B12 LEVEL 641 PG/ML (211-911)
[2023-01-17 14:37] LABS: HEMOGLOBIN A1c 7.5 % (4.0-6.0)
[2023-01-17 14:56] LABS: CREATININE, URINE 237.3 MG/DL; MAU/CREAT RATIO 10.9 MCG/MG (0.0-30.0)
== END ==
LOC: M PLALAB 11:13
PROVIDERS: ATTEND Internal Medicine Hematology
DX: E11.69 Type 2 diabetes mellitus with other specified complication (principal); I10 Essential (primary) hypertension; E78.2 Mixed hyperlipidemia; R53.82 Chronic fatigue, unspecified; R80.9 Proteinuria, unspecified; K52.9 Noninfective gastroenteritis and colitis, unspecified; Z79.899 Other long term (current) drug therapy

== ENCOUNTER → 2023-05-02 | Outpatient (REF) | payer MEDICARE, MEDICAID ==
[~2023-05-02] MED LIST changes: -ALLE1TAB23 PO; +FEXO-157 PO
== END ==
LOC: M SFHCADAM 07:38
PROVIDERS: ATTEND Urology
DX: C61 Malignant neoplasm of prostate (principal)

== ENCOUNTER → 2023-06-12 | Outpatient (CLI) | payer MEDICARE, MEDICAID ==
[2023-06-12 15:50] LABS: BASO % 0.3 % (0.0-1.0); EOS # 0.3 10^3/uL (0.0-0.5); EOS % 3.2 % (0.0-3.0); HEMATOCRIT 35.2 % (42.0-52.0); HEMOGLOBIN 11.8 g/dl (13.5-17.5); LYMPH # 2.2 10^3/uL (1.5-5.0); LYMPH % 24.7 % (24.0-44.0); MEAN CORPUSCULAR HEMOGLOBIN 29.3 pg (27.0-33.0); MEAN CORPUSCULAR HGB CONC 33.5 g/dl (32.0-36.5); MEAN CORPUSCULAR VOLUME 87.3 fl (80.0-96.0); MONO # 0.7 10^3/uL (0.0-0.8); MONO % 8.2 % (2.0-8.0); NEUTROPHILS # 5.7 10^3/uL (1.5-8.5); PLATELET COUNT, AUTOMATED 294 10^3/uL (150-450); RED BLOOD COUNT 4.03 10^6/uL (4.30-6.10)
[2023-06-12 16:25] LABS: THYROID STIMULATING HORMONE 1.469 uIU/ML (0.55-4.78); TOTAL 25(OH) VITAMIN D 27.1 NG/ML (20.0-100.0); VITAMIN B12 LEVEL 432 PG/ML (211-911)
[2023-06-12 16:30] LABS: ALBUMIN 3.4 G/DL (3.2-5.2); ALKALINE PHOSPHATASE 89 U/L (46-116); ALT/SGPT 18 U/L (7.0-40); AST/SGOT 14 U/L (<34); BILIRUBIN,TOTAL 0.4 MG/DL (0.3-1.2); BLOOD UREA NITROGEN 20 MG/DL (9-23); CARBON DIOXIDE LEVEL 24 MMOL/L (20-31); CHLORIDE LEVEL 103 MMOL/L (98-107); CHOLESTEROL LEVEL 187 MG/DL (<200); CREATININE FOR GFR 1.05 MG/DL (0.70-1.30); GLOMERULAR FILTRATION RATE > 60.0 (>42); GLUCOSE, FASTING 105 MG/DL (74-106); HDL CHOLESTEROL 56.6 MG/DL (>40); LDL CHOLESTEROL 112.6 MG/DL (<100); NON-HDL-C 130.4 MG/DL; POTASSIUM SERUM 4.4 MMOL/L (3.5-5.1); SODIUM LEVEL 136 MMOL/L (136-145); TOTAL PROTEIN 7.1 G/DL (5.7-8.2); TRIGLYCERIDES LEVEL 89 MG/DL (<150)
[2023-06-12 19:15] LABS: HEMOGLOBIN A1c 7.5 % (4.0-6.0)
[2023-06-14 10:19] LABS: IRON (FE) 54 UG/DL (65-175)
[2023-06-14 10:22] LABS: FERRITIN 17.7 NG/ML (10.5-307.3)
== END ==
LOC: M PLALAB 13:53
PROVIDERS: ATTEND Internal Medicine Hematology
DX: E11.69 Type 2 diabetes mellitus with other specified complication (principal); I69.311 Memory deficit following cerebral infarction; Z79.899 Other long term (current) drug therapy

== ENCOUNTER → 2023-09-16 | Outpatient (CLI) | payer MEDICARE, MEDICAID ==
[~2023-09-16] MED LIST changes: +E-Z-GAS II EFFERVESCENT PACKET (SODIUM BICARB./CITRIC ACID/SIMETHICONE) As Ordered ONE; +E-Z-HD 98% w/w 340GM SUSP BTL As Ordered ONE; +E-Z-PAQUE 96% w/w SUSP 176GM BTL As Ordered ONE; +FLUO-365; -FLUO20CA22; +ONDA-282 PO; -ONDA4TAB6 PO
== END ==
LOC: M RAD 09:13
PROVIDERS: ATTEND Physician Assistant Medical
DX: R13.10 Dysphagia, unspecified (principal); M50.321 Other cervical disc degeneration at C4-C5 level; K22.89 Other specified disease of esophagus; K44.9 Diaphragmatic hernia without obstruction or gangrene

== ENCOUNTER 2023-10-10 12:58 | Emergency (ER) | payer MEDICARE, MEDICAID ==
[~2023-10-10] VITALS: Ht 182.9 cm; Wt 75.0 kg
[~2023-10-10 12:58] MED LIST changes: -E-Z-GAS II EFFERVESCENT PACKET (SODIUM BICARB./CITRIC ACID/SIMETHICONE) As Ordered ONE; -E-Z-HD 98% w/w 340GM SUSP BTL As Ordered ONE; -E-Z-PAQUE 96% w/w SUSP 176GM BTL As Ordered ONE
[2023-10-10 14:59] LABS: BASO % 0.4 % (0.0-1.0); EOS # 0.6 10^3/uL (0.0-0.5); EOS % 6.6 % (0.0-3.0); HEMATOCRIT 35.1 % (42.0-52.0); HEMOGLOBIN 11.5 g/dl (13.5-17.5); LYMPH # 2.1 10^3/uL (1.5-5.0); LYMPH % 23.8 % (24.0-44.0); MEAN CORPUSCULAR HGB CONC 32.8 g/dl (32.0-36.5); MEAN CORPUSCULAR VOLUME 88.6 fl (80.0-96.0); MONO # 0.8 10^3/uL (0.0-0.8); MONO % 9.1 % (2.0-8.0); NEUTROPHILS # 5.4 10^3/uL (1.5-8.5); NEUTROPHILS % 59.8 % (36.0-66.0); PLATELET COUNT, AUTOMATED 215 10^3/uL (150-450); RED BLOOD COUNT 3.96 10^6/uL (4.30-6.10)
[2023-10-10] MEDS: NS 1,000 ML IV ONE (15:01)
[2023-10-10 15:17] LABS: INR 0.94; PARTIAL THROMBOPLASTIN TIME 27.5 SECONDS (24.8-34.2); PROTHROMBIN TIME 12.3 SECONDS (12.5-14.5)
[2023-10-10 17:32] LABS: ALBUMIN 3.3 G/DL (3.2-5.2); ALKALINE PHOSPHATASE 71 U/L (46-116); ALT/SGPT 58 U/L (7.0-40); AST/SGOT 40 U/L (<34); BILIRUBIN,DIRECT < 0.1 MG/DL (<0.4); BILIRUBIN,TOTAL 0.2 MG/DL (0.3-1.2); BLOOD UREA NITROGEN 30 MG/DL (9-23); CALCIUM LEVEL 8.6 MG/DL (8.3-10.6); CARBON DIOXIDE LEVEL 25 MMOL/L (20-31); CHLORIDE LEVEL 104 MMOL/L (98-107); CREATININE FOR GFR 1.02 MG/DL (0.70-1.30); GLOMERULAR FILTRATION RATE > 60.0 (>42); GLUCOSE, FASTING 140 MG/DL (74-106); MAGNESIUM LEVEL 1.5 MG/DL (1.8-2.4); POTASSIUM SERUM 4.7 MMOL/L (3.5-5.1); SODIUM LEVEL 134 MMOL/L (136-145); TOTAL PROTEIN 6.6 G/DL (5.7-8.2)
[2023-10-10] MEDS: MAGNESIUM OXIDE 400MG TAB (MAG-OX) PO ONE (18:48)
[2023-10-10 18:59] VITALS: BP 148/88; TEMP 96.5; O2SAT 96
== END 2023-10-10 19:07 | disposition home or self-care (01) ==
LOC: M ED 12:58
DX: R40.4 Transient alteration of awareness (principal); E83.42 Hypomagnesemia; I44.0 Atrioventricular block, first degree; J45.909 Unspecified asthma, uncomplicated; I11.0 Hypertensive heart disease with heart failure; E78.5 Hyperlipidemia, unspecified; K21.9 Gastro-esophageal reflux disease without esophagitis; G47.33 Obstructive sleep apnea (adult) (pediatric); N18.30 Chronic kidney disease, stage 3 unspecified; F41.9 Anxiety disorder, unspecified; F32.A Depression, unspecified; F31.9 Bipolar disorder, unspecified; Z88.0 Allergy status to penicillin; Z88.1 Allergy status to other antibiotic agents; Z88.2 Allergy status to sulfonamides; Z88.8 Allergy status to other drugs, medicaments and biological substances; Z91.041 Radiographic dye allergy status; Z79.51 Long term (current) use of inhaled steroids; Z79.4 Long term (current) use of insulin; Z79.84 Long term (current) use of oral hypoglycemic drugs; Z79.899 Other long term (current) drug therapy

== ENCOUNTER → 2023-11-22 | Outpatient (REF) | payer MEDICARE, MEDICAID ==
[~2023-11-22] MED LIST changes: +AMLO1TAB24 PO; +DONE5TAB82 PO; +DULA3PEN SQ; +FERR32TA PO; -FEXO-157 PO; +FEXO-63 PO; +HUMA100I5 SC; +LORA-1041 PO; +MECL-209 PO; +METF-838 PO; +OMEP40CA5 PO; +PRAM0.123 PO; +PRAZ2CAP PO; +PROP40TA62 PO; +SIMV20TA22 PO; +TAMS1CAP17 PO; +TRAZ-252 PO
[2023-11-22 18:05] LABS: APPEARANCE, URINE HAZY (CLEAR); BACTERIA, URINE AUTO 1+ (NEGATIVE); BILIRUBIN, URINE AUTO NEGATIVE (NEGATIVE); BLOOD, URINE BLOOD 2+ (NEGATIVE); COLOR, URINE YELLOW (YELLOW); GLUCOSE, URINE (UA) AUTO NEGATIVE (NEGATIVE); KETONE, URINE AUTO NEGATIVE (NEGATIVE); LEUKOCYTE ESTERASE, URINE AUTO 3+ (NEGATIVE); NITRITE, URINE AUTO POSITIVE (NEGATIVE); PROTEIN, URINE AUTO 1+ mg/dL (NEGATIVE); RBC, URINE AUTO 4 /HPF (0-3); SPECIFIC GRAVITY URINE AUTO 1.014 (1.002-1.035); SQUAMOUS EPITHELIAL CELL UR AU 0 /HPF (0-6); UROBILINOGEN, URINE AUTO 0.2 mg/dL (0.0-2.0); WBC, URINE AUTO TNTC /HPF (0-3)
== END ==
LOC: M SMT 16:59
PROVIDERS: ATTEND Urology
DX: R39.9 Unspecified symptoms and signs involving the genitourinary system (principal)

== ENCOUNTER → 2023-11-26 | Outpatient (REF) | payer MEDICARE, MEDICAID | LOC: M LABSMT 08:07 | PROVIDERS: ATTEND Urology | DX: R39.9 Unspecified symptoms and signs involving the genitourinary system (principal) ==

== ENCOUNTER → 2024-01-07 | Outpatient (REF) | payer MEDICARE, MEDICAID ==
[~2024-01-07] MED LIST changes: +AZEL1SPR3; +GABA-1172; +GABA-1172 PO; -GABA-282; -GABA-282 PO
== END ==
LOC: M LABDRWAD 13:27
PROVIDERS: ATTEND Urology
DX: C61 Malignant neoplasm of prostate (principal)

== ENCOUNTER → 2024-04-10 | Outpatient (REF) | payer MEDICARE, MEDICAID ==
[2024-04-10 17:42] LABS: APPEARANCE, URINE CLEAR (CLEAR); BACTERIA, URINE AUTO NEGATIVE (NEGATIVE); BILIRUBIN, URINE AUTO NEGATIVE (NEGATIVE); BLOOD, URINE BLOOD NEGATIVE (NEGATIVE); COLOR, URINE YELLOW (YELLOW); GLUCOSE, URINE (UA) AUTO 1+ mg/dL (NEGATIVE); KETONE, URINE AUTO NEGATIVE (NEGATIVE); LEUKOCYTE ESTERASE, URINE AUTO 1+ (NEGATIVE); MUCUS, URINE SMALL (NEGATIVE); NITRITE, URINE AUTO NEGATIVE (NEGATIVE); PROTEIN, URINE AUTO 1+ mg/dL (NEGATIVE); RBC, URINE AUTO 1 /HPF (0-3); SPECIFIC GRAVITY URINE AUTO 1.016 (1.002-1.035); SQUAMOUS EPITHELIAL CELL UR AU 0 /HPF (0-6); UROBILINOGEN, URINE AUTO 0.2 mg/dL (0.0-2.0); WBC, URINE AUTO 10 /HPF (0-3)
== END ==
LOC: M SMT 16:50
PROVIDERS: ATTEND Urology
DX: R33.9 Retention of urine, unspecified (principal)

== ENCOUNTER → 2024-06-02 | Outpatient (REF) | payer MEDICARE, MEDICAID ==
[~2024-06-02] MED LIST changes: +GLIP-318 PO; -GLIP5TAB20 PO
[2024-06-02 14:56] LABS: HEMATOCRIT 37.3 % (42.0-52.0); HEMOGLOBIN 12.3 g/dl (13.5-17.5); MEAN CORPUSCULAR HEMOGLOBIN 30.5 pg (27.0-33.0); MEAN CORPUSCULAR VOLUME 92.6 fl (80.0-96.0); PLATELET COUNT, AUTOMATED 244 10^3/uL (150-450); RED BLOOD COUNT 4.03 10^6/uL (4.30-6.10)
[2024-06-02 15:21] LABS: ALBUMIN 3.4 G/DL (3.2-5.2); ALKALINE PHOSPHATASE 79 U/L (40-129); ALT/SGPT 23 U/L (7.0-40); AST/SGOT 17 U/L (<34); BILIRUBIN,TOTAL 0.5 MG/DL (0.3-1.2); BLOOD UREA NITROGEN 21 MG/DL (9-23); CALCIUM LEVEL 9.1 MG/DL (8.3-10.6); CARBON DIOXIDE LEVEL 28 MMOL/L (20-31); CHLORIDE LEVEL 102 MMOL/L (98-107); CHOLESTEROL LEVEL 161 MG/DL (<200); CHOLESTEROL RISK RATIO 2.66 (<5); CREATININE FOR GFR 0.98 MG/DL (0.70-1.30); GLOMERULAR FILTRATION RATE > 60.0 (>42); GLUCOSE, FASTING 224 MG/DL (74-106); HDL CHOLESTEROL 60.5 MG/DL (>40); LDL CHOLESTEROL 73.1 MG/DL (<100); NON-HDL-C 100.5 MG/DL; POTASSIUM SERUM 4.9 MMOL/L (3.5-5.1); SODIUM LEVEL 137 MMOL/L (136-145); TOTAL PROTEIN 7.2 G/DL (5.7-8.2); TRIGLYCERIDES LEVEL 137 MG/DL (<150)
[2024-06-02 15:22] LABS: THYROID STIMULATING HORMONE 1.088 uIU/ML (0.55-4.78)
[2024-06-02 15:52] LABS: HEMOGLOBIN A1c 8.3 % (4.0-6.0)
== END ==
LOC: M SFHCADAM 07:44
PROVIDERS: ATTEND Urology
DX: E11.69 Type 2 diabetes mellitus with other specified complication (principal); I10 Essential (primary) hypertension; G47.33 Obstructive sleep apnea (adult) (pediatric); E78.2 Mixed hyperlipidemia; C61 Malignant neoplasm of prostate

== ENCOUNTER → 2024-06-19 | Outpatient (REF) | payer MEDICARE ==
[2024-06-19 14:08] LABS: PERCENT SATURATION 20.7 % (19.7-50.0)
[2024-06-19 14:13] LABS: FOLATE 8.5 NG/ML (>5.4)
[2024-06-19 14:14] LABS: FERRITIN 27.4 NG/ML (10.5-307.3)
== END ==
LOC: M SFHCADAM 09:43
PROVIDERS: ATTEND Physician Assistant
DX: D64.89 Other specified anemias (principal); D63.8 Anemia in other chronic diseases classified elsewhere

== ENCOUNTER 2024-07-09 10:27 | Day surgery (SDC) | payer MEDICARE, MEDICAID ==
[~2024-07-09] VITALS: Ht 182.9 cm; Wt 117.9 kg
[~2024-07-09 10:27] MED LIST changes: -FLOM0.4C39 PO; +KETO120S5; -KETO2SHA8; +TAMS-18 PO
[2024-07-09] MEDS ORDERED: fentaNYL 100 MCG/2 ML INJECTION As Ordered ONE (11:42)
[2024-07-09] MEDS ORDERED: propofoL 200 MG/20 ML VIAL As Ordered ONE (11:42)
[2024-07-09] MEDS ORDERED: GLYCOPYRROLATE INJ 0.2 MG/ML 2 ML VIAL As Ordered ONE (11:42)
[2024-07-09] MEDS ORDERED: LIDOCAINE 2% 100MG/5ML SDV (FOR ANES.) As Ordered ONE (11:42)
[2024-07-09] MEDS ORDERED: ePHEDrine SULFATE 25 MG/5 ML(5MG/ML) SYRINGE As Ordered ONE (12:15)
[2024-07-09 12:32] VITALS: TEMP 99.1
[2024-07-09 13:09] VITALS: BP 142/78; O2SAT 96
== END 2024-07-09 13:16 | disposition home or self-care (01) ==
LOC: M OPP 10:27
PROVIDERS: ATTEND Internal Medicine Gastroenterology
DX: D12.2 Benign neoplasm of ascending colon (principal); D12.3 Benign neoplasm of transverse colon; K57.30 Diverticulosis of large intestine without perforation or abscess without bleeding; K64.8 Other hemorrhoids; Z86.0100 Personal history of colon polyps, unspecified; K29.70 Gastritis, unspecified, without bleeding; K22.710 Barrett's esophagus with low grade dysplasia; K22.89 Other specified disease of esophagus; K44.9 Diaphragmatic hernia without obstruction or gangrene; R13.10 Dysphagia, unspecified; G47.30 Sleep apnea, unspecified; Z88.0 Allergy status to penicillin; Z88.1 Allergy status to other antibiotic agents; Z88.2 Allergy status to sulfonamides; Z88.8 Allergy status to other drugs, medicaments and biological substances; Z91.041 Radiographic dye allergy status; Z79.4 Long term (current) use of insulin; Z79.85 Long-term (current) use of injectable non-insulin antidiabetic drugs; Z79.899 Other long term (current) drug therapy; R56.9 Unspecified convulsions
CPT/HCPCS: 43239; 43249; 45385; 88305; J1596; J3010

== ENCOUNTER 2024-11-24 13:57 | Emergency (ER) | payer MEDICARE, MEDICAID ==
[~2024-11-24] VITALS: Ht 182.9 cm; Wt 120.3 kg
[~2024-11-24 13:57] MED LIST changes: -FISH100015 PO; +FISH100019 PO; -IBUP1TAB6 PO; +SFHIBU600 PO
[2024-11-24 14:24] LABS: BASO # 0.0 10^3/uL (0.0-0.2); BASO % 0.3 % (0.0-1.0); EOS # 0.3 10^3/uL (0.0-0.5); EOS % 2.5 % (0.0-3.0); LYMPH # 2.4 10^3/uL (1.5-5.0); LYMPH % 21.9 % (24.0-44.0); MONO # 0.8 10^3/uL (0.0-0.8); MONO % 7.0 % (2.0-8.0); NEUTROPHILS # 7.4 10^3/uL (1.5-8.5); NEUTROPHILS % 67.5 % (36.0-66.0); PLATELET COUNT, AUTOMATED 262 10^3/uL (150-450)
[2024-11-24] MEDS: NS 500 ML IV ONE (14:47)
[2024-11-24 14:51] LABS: ALT/SGPT 30.0 U/L (7.0-40); AST/SGOT 21.0 U/L (<34); CALCIUM LEVEL 9.0 MG/DL (8.3-10.6); CARBON DIOXIDE LEVEL 25.0 MMOL/L (20-31); CHLORIDE LEVEL 98.0 MMOL/L (98-107); CK-MB VALUE MASS 1.5 NG/ML (<3.6); CREATININE FOR GFR 0.99 MG/DL (0.70-1.30); GLOMERULAR FILTRATION RATE 79.9 (>42); MAGNESIUM LEVEL 1.6 MG/DL (1.8-2.4); POTASSIUM SERUM 4.4 MMOL/L (3.5-5.1); SODIUM LEVEL 134.0 MMOL/L (136-145)
[2024-11-24 15:04] LABS: CPK CREATINE PHOSPHOKINASE 55.0 U/L (46-171); MB/CK RELATIVE INDEX 2.72 (< OR =4)
[2024-11-24 16:06] LABS: CK-MB VALUE MASS 1.4 NG/ML (<3.6)
[2024-11-24 16:20] LABS: CPK CREATINE PHOSPHOKINASE 55.0 U/L (46-171); MB/CK RELATIVE INDEX 2.54 (< OR =4)
[2024-11-24] MEDS ORDERED: FAMO40TA3 PO (18:15)
[2024-11-24] MEDS: MAGNESIUM OXIDE 400 MG TAB PO ONE (19:18)
[2024-11-24 19:22] VITALS: BP 163/78; TEMP 97.5; O2SAT 98
== END 2024-11-24 19:30 | disposition home or self-care (01) ==
LOC: M ED 13:57 → EDBD 13:57 → M ED 19:30
DX: R07.9 Chest pain, unspecified (principal); E83.42 Hypomagnesemia; K22.70 Barrett's esophagus without dysplasia; I25.2 Old myocardial infarction; I49.1 Atrial premature depolarization; M54.50 Low back pain, unspecified; F31.9 Bipolar disorder, unspecified; K57.30 Diverticulosis of large intestine without perforation or abscess without bleeding; K76.0 Fatty (change of) liver, not elsewhere classified; G47.33 Obstructive sleep apnea (adult) (pediatric); J45.909 Unspecified asthma, uncomplicated; E78.5 Hyperlipidemia, unspecified; I10 Essential (primary) hypertension; Z88.1 Allergy status to other antibiotic agents; Z88.0 Allergy status to penicillin; Z88.2 Allergy status to sulfonamides; Z91.041 Radiographic dye allergy status; Z79.52 Long term (current) use of systemic steroids; Z79.899 Other long term (current) drug therapy; Z90.89 Acquired absence of other organs; Z86.79 Personal history of other diseases of the circulatory system

== ENCOUNTER → 2024-12-23 | Outpatient (REF) | payer MEDICARE, MEDICAID ==
[~2024-12-23] MED LIST changes: +FAMO40TA3 PO
[2024-12-23 14:29] LABS: CALCIUM LEVEL 9.0 MG/DL (8.3-10.6); CARBON DIOXIDE LEVEL 28.0 MMOL/L (20-31); CHLORIDE LEVEL 100.0 MMOL/L (98-107); CREATININE FOR GFR 1.04 MG/DL (0.70-1.30); GLOMERULAR FILTRATION RATE 75.4 (>42); POTASSIUM SERUM 4.3 MMOL/L (3.5-5.1); SODIUM LEVEL 137.0 MMOL/L (136-145)
== END ==
LOC: M SFHCADAM 07:43
PROVIDERS: ATTEND Physician Assistant
DX: E11.69 Type 2 diabetes mellitus with other specified complication (principal)

== ENCOUNTER → 2024-12-31 | Outpatient (REF) | payer MEDICARE, MEDICAID | LOC: M SFHCADAM 12:52 | PROVIDERS: ATTEND Physician Assistant | DX: J02.9 Acute pharyngitis, unspecified (principal) ==

== ENCOUNTER 2025-02-09 13:06 | Inpatient (IN) | payer MEDICARE, MEDICAID ==
[~2025-02-09] VITALS: Ht 185.4 cm; Wt 121.7 kg
[~2025-02-09 13:06] MED LIST changes: -PROP80TA PO
[2025-02-09 14:20] LABS: BASO # 0.0 10^3/uL (0.0-0.2); BASO % 0.2 % (0.0-1.0); EOS # 0.4 10^3/uL (0.0-0.5); EOS % 3.7 % (0.0-3.0); LYMPH # 2.1 10^3/uL (1.5-5.0); LYMPH % 22.1 % (24.0-44.0); MONO # 0.9 10^3/uL (0.0-0.8); MONO % 9.7 % (2.0-8.0); NEUTROPHILS # 6.2 10^3/uL (1.5-8.5); NEUTROPHILS % 63.4 % (36.0-66.0); PLATELET COUNT, AUTOMATED 244 10^3/uL (150-450)
[2025-02-09 14:34] LABS: ALT/SGPT 25.0 U/L (7.0-40); AST/SGOT 15.0 U/L (<34); C REACTIVE PROTEIN QUANTITATIV 7.43 MG/DL (<1.0); CALCIUM LEVEL 8.3 MG/DL (8.3-10.6); CARBON DIOXIDE LEVEL 26.0 MMOL/L (20-31); CHLORIDE LEVEL 102.0 MMOL/L (98-107); CREATININE FOR GFR 1.08 MG/DL (0.70-1.30); GLOMERULAR FILTRATION RATE 71.6 (>42); POTASSIUM SERUM 3.9 MMOL/L (3.5-5.1); SODIUM LEVEL 136.0 MMOL/L (136-145)
[2025-02-09 14:35] LABS: ACETONE/KETONE 0.05 MMOL/L (0.02-0.27)
[2025-02-09 14:50] LABS: VENOUS BASE EXCESS -1.2 (-2.0-2.0); VENOUS HCO3 23.7 MMOL/L (23.0-27.0); VENOUS O2 SATURATION 98.4 % (60.0-80.0); VENOUS PARTIAL PRESSURE CO2 40.4 mmHg (38.0-50.0); VENOUS PARTIAL PRESSURE O2 115.7 mmHg (30.0-50.0); VENOUS PH 7.386 UNITS (7.330-7.430); VENOUS STANDARD HCO3 23.5 MMOL/L; VENOUS TOTAL CO2 24.9 MMOL/L (24.0-28.0)
[2025-02-09 15:32] LABS: ESTIMATED AVERAGE GLUCOSE 249.0 MG/DL (60-110)
[2025-02-09] MEDS: ceFAZolin SODIUM 2 GM in DEXTROSE 5% (D5W) ADV/MINI-BAG 50 ML IV ONE (15:53)
[2025-02-09] MEDS ORDERED: VANCOMYCIN HCL 1,000 MG in IV FLUID PLACE HOLDER 1 EA IV SCH (16:15)
[2025-02-09] MEDS ORDERED: NALOXONE INJ 0.4 MG/1 ML VIAL IV PRN (16:40)
[2025-02-09] MEDS ORDERED: PERCOCET 5MG/325MG TAB PO PRN (16:40)
[2025-02-09] MEDS ORDERED: GLUCOSE 4 GM CHEW PO PRN (16:40)
[2025-02-09] MEDS ORDERED: GLUCAGON INJ 1 MG VIAL SC PRN (16:40)
[2025-02-09] MEDS ORDERED: DEXTROSE 50% 50 ML SYRINGE IV PRN (16:40)
[2025-02-09] MEDS ORDERED: PROP80TA PO (16:47)
[2025-02-09] MEDS ORDERED: FAMO40TA3 PO (16:47)
[2025-02-09] MEDS ORDERED: GLIP5TAB17 PO (16:57)
[2025-02-09] MEDS ORDERED: HOME MED LIST COMPLETE! XX SCH (17:00)
[2025-02-09 17:11] VITALS: BP 174/82; TEMP 98.7; O2SAT 98
[2025-02-09] MEDS ORDERED: ALBUTEROL SULFATE 2.5 MG/0.5 ML INH CONCENTRATE NEB SOLN INH PRN (17:20)
[2025-02-09] MEDS ORDERED: MECLIZINE 25 MG TABLET PO PRN (17:20)
[2025-02-09] MEDS ORDERED: ALBUTEROL 90 MCG/ACT 8 GM HFA INHALER INH SCH (17:20)
[2025-02-09] MEDS ORDERED: NITROGLYCERIN 0.4 MG SUBL TABLET SL PRN (17:20)
[2025-02-09] MEDS: amLODIPine 10 MG TAB PO ONE (18:21)
[2025-02-09] MEDS: INSULIN LISPRO (NovoLOG) PER UNIT SC SCH ×3 (18:22→21:00)
[2025-02-09] MEDS: PERCOCET 5MG/325MG TAB PO PRN (18:22)
[2025-02-09] MEDS: MEROPENEM 1 GM in IV 1 EA IV SCH (18:23)
[2025-02-09] MEDS: LanTUS (INSULIN GLARGINE INJ) 1 UNITS/0.01 ML SC ONE (18:30)
[2025-02-09] MEDS: VANCOMYCIN HCL 2,000 MG, VIAL MATE ADAPTER 1 EACH in NS 500 ML IV ONE (20:34)
[2025-02-09] MEDS ORDERED: FERROUS GLUCONATE 324 MG TAB PO SCH (21:00)
[2025-02-09] MEDS: LORazepam 0.5 MG TAB PO SCH (22:32)
[2025-02-09] MEDS: FAMOTIDINE 20 MG TAB PO SCH (22:33)
[2025-02-09] MEDS: GABAPENTIN 300 MG CAP PO SCH (22:33)
[2025-02-09] MEDS: PRAMIPEXOLE 0.125 MG TAB PO SCH (22:33)
[2025-02-09] MEDS: DONEPEZIL 5 MG TAB PO SCH (22:33)
[2025-02-09] MEDS: OMEPRAZOLE 20MG CAP PO SCH (22:33)
[2025-02-09] MEDS: AZELASTINE 137 MCG NASAL SPY 30 ML SCH (22:36)
[2025-02-09] MEDS: PRAZOSIN 1 MG CAP PO SCH (22:36)
[2025-02-09] MEDS: LATANOPROST 0.005% OPHTH SOLN 2.5 ML OU SCH (22:36)
[2025-02-10] VITALS: BP 158/72; TEMP 98; O2SAT 98
[2025-02-10 08:29] VITALS: BP 148/66
[2025-02-10] MEDS: LOSARTAN 50 MG TABLET PO SCH (08:36)
[2025-02-10] MEDS: FLUoxetine 20 MG CAP PO SCH (08:36)
[2025-02-10] MEDS: FERROUS GLUCONATE 324 MG TAB PO SCH (08:37)
[2025-02-10] MEDS: amLODIPine 10 MG TAB PO SCH (08:37)
[2025-02-10] MEDS: OMEGA-3 1000 MG CAPSULE PO SCH (08:37)
[2025-02-10] MEDS: MAGNESIUM OXIDE 400 MG TAB PO SCH (08:37)
[2025-02-10] MEDS ORDERED: CHLORASEPTIC SPRAY MT PRN (08:40)
[2025-02-10] MEDS: PROPRANOLOL 20 MG TAB PO SCH (08:47)
[2025-02-10] MEDS ORDERED: VANCOMYCIN HCL 1,500 MG, VIAL MATE ADAPTER 1 EACH in NS 500 ML IV SCH (11:00)
[2025-02-10 11:09] LABS: CALCIUM LEVEL 8.5 MG/DL (8.3-10.6); CARBON DIOXIDE LEVEL 25.0 MMOL/L (20-31); CHLORIDE LEVEL 99.0 MMOL/L (98-107); CREATININE FOR GFR 1.0 MG/DL (0.70-1.30); GLOMERULAR FILTRATION RATE 78.5 (>42); POTASSIUM SERUM 3.9 MMOL/L (3.5-5.1); SODIUM LEVEL 133.0 MMOL/L (136-145)
[2025-02-10] MEDS ORDERED: LanTUS (INSULIN GLARGINE INJ) 1 UNITS/0.01 ML SC ONE (11:15)
[2025-02-10] MEDS: INSULIN LISPRO (NovoLOG) PER UNIT SC STA (11:22)
[2025-02-10] MEDS: SIMVASTATIN 20 MG TAB PO SCH (11:52)
[2025-02-10] MEDS: VANCOMYCIN HCL 1,000 MG, VIAL MATE ADAPTER 1 EACH in NS 250 ML IV SCH (11:52)
[2025-02-10 11:56] VITALS: BP 134/66; TEMP 98.5; O2SAT 98
[2025-02-10 16:09] LABS: CALCIUM LEVEL 8.1 MG/DL (8.3-10.6); CARBON DIOXIDE LEVEL 26.0 MMOL/L (20-31); CHLORIDE LEVEL 103.0 MMOL/L (98-107); CREATININE FOR GFR 0.98 MG/DL (0.70-1.30); GLOMERULAR FILTRATION RATE 80.4 (>42); POTASSIUM SERUM 4.0 MMOL/L (3.5-5.1); SODIUM LEVEL 140.0 MMOL/L (136-145)
[2025-02-10] MEDS: CEFEPIME HCL 2 GM in DEXTROSE 5% (D5W) ADV/MINI-BAG 50 ML IV SCH (17:03)
[2025-02-10 20:47] VITALS: BP 146/70; TEMP 98.5; O2SAT 97
[2025-02-10] MEDS: LanTUS (INSULIN GLARGINE INJ) 1 UNITS/0.01 ML SC SCH (21:04)
[2025-02-10] MEDS: ACETAMINOPHEN 325 MG TAB PO PRN (21:25)
[2025-02-11] VITALS: BP 139/67; TEMP 98; O2SAT 47
[2025-02-11 04:42] VITALS: BP 150/66; TEMP 98.5; O2SAT 96
[2025-02-11] MEDS ORDERED: cefTRIAXone SOD 2 GM in DEXTROSE 5% (D5W) ADV/MINI-BAG 50 ML IV SCH (08:10)
[2025-02-11] MEDS ORDERED: LINE1TAB6 PO (08:22)
[2025-02-11] MEDS: MUPIROCIN 2% OINT 22 GM TUBE TOP SCH (11:31)
[2025-02-11] MEDS: LINEZOLID 600 MG TABLET PO SCH (11:31)
[2025-02-11 12:00] VITALS: BP 154/72; TEMP 98.2; O2SAT 99
[2025-02-11] MEDS: INSULIN LISPRO (NovoLOG) PER UNIT SC SCH (12:59)
[2025-02-11 20:12] VITALS: BP 136/63; TEMP 98.2; O2SAT 99
[2025-02-12 04:23] VITALS: BP 153/69; TEMP 98; O2SAT 98
[2025-02-12] MEDS ORDERED: LANTINJ4 SC (07:37)
[2025-02-12] MEDS ORDERED: BLOOKIT21 XX (07:38)
[2025-02-12] MEDS ORDERED: PEN-308 SC (07:38)
[2025-02-12] MEDS ORDERED: ALCOPAD25 TOP (07:38)
[2025-02-12] MEDS ORDERED: LANC30MI XX (07:38)
[2025-02-12] MEDS ORDERED: INSUHUMDS SC (07:43)
[2025-02-12] MEDS ORDERED: MUPI2OI TOP (07:43)
[2025-02-12] MEDS ORDERED: INSU100I16 SQ (07:43)
[2025-02-12] MEDS ORDERED: HIBI4LIQ EXC (07:43)
[2025-02-12 08:14] LABS: BASO # 0.0 10^3/uL (0.0-0.2); BASO % 0.4 % (0.0-1.0); EOS # 0.5 10^3/uL (0.0-0.5); EOS % 5.9 % (0.0-3.0); LYMPH # 2.3 10^3/uL (1.5-5.0); LYMPH % 29.0 % (24.0-44.0); MONO # 0.6 10^3/uL (0.0-0.8); MONO % 7.6 % (2.0-8.0); NEUTROPHILS # 4.6 10^3/uL (1.5-8.5); NEUTROPHILS % 56.5 % (36.0-66.0); PLATELET COUNT, AUTOMATED 263 10^3/uL (150-450)
[2025-02-12 08:39] LABS: C REACTIVE PROTEIN QUANTITATIV 1.98 MG/DL (<1.0); CALCIUM LEVEL 8.4 MG/DL (8.3-10.6); CARBON DIOXIDE LEVEL 27.0 MMOL/L (20-31); CHLORIDE LEVEL 104.0 MMOL/L (98-107); CREATININE FOR GFR 1.03 MG/DL (0.70-1.30); GLOMERULAR FILTRATION RATE 75.8 (>42); POTASSIUM SERUM 4.2 MMOL/L (3.5-5.1); SODIUM LEVEL 140.0 MMOL/L (136-145)
[2025-02-12 09:01] VITALS: BP 135/70
[2025-02-12] MEDS: LanTUS (INSULIN GLARGINE INJ) 1 UNITS/0.01 ML SC ONE (09:08)
[2025-02-12] MEDS: INSULIN LISPRO (NovoLOG) PER UNIT SC SCH (09:10)
[2025-02-12 12:43] VITALS: BP 143/67; TEMP 97.5; O2SAT 96
[2025-02-12] MEDS ORDERED: LanTUS (INSULIN GLARGINE INJ) 1 UNITS/0.01 ML SC SCH (21:00)
[2025-02-16] MEDS ORDERED: ENTER DRUG NAME HERE (PATIENT'S OWN MED) SQ SCH (09:00)
== END 2025-02-12 13:54 | disposition home health service (06) | DRG 638 ==
LOC: M ED 13:06 → M ED INP 16:13 → M MSPAV 17:00
PROVIDERS: ADMIT General Practice; ATTEND General Practice
DX: E11.628 Type 2 diabetes mellitus with other skin complications (principal); L02.415 Cutaneous abscess of right lower limb; L03.115 Cellulitis of right lower limb; F32.A Depression, unspecified; E11.42 Type 2 diabetes mellitus with diabetic polyneuropathy; G40.909 Epilepsy, unspecified, not intractable, without status epilepticus; I10 Essential (primary) hypertension; J45.909 Unspecified asthma, uncomplicated; Z68.35 Body mass index [BMI] 35.0-35.9, adult; E66.9 Obesity, unspecified; K22.70 Barrett's esophagus without dysplasia; E78.5 Hyperlipidemia, unspecified; G25.81 Restless legs syndrome; M19.90 Unspecified osteoarthritis, unspecified site; R26.89 Other abnormalities of gait and mobility; Z85.46 Personal history of malignant neoplasm of prostate; Z98.41 Cataract extraction status, right eye; Z98.42 Cataract extraction status, left eye; Z87.820 Personal history of traumatic brain injury; Z79.84 Long term (current) use of oral hypoglycemic drugs; Z79.4 Long term (current) use of insulin; Z79.899 Other long term (current) drug therapy; Z88.0 Allergy status to penicillin; Z88.2 Allergy status to sulfonamides; Z88.5 Allergy status to narcotic agent; Z88.8 Allergy status to other drugs, medicaments and biological substances; Z91.041 Radiographic dye allergy status

== ENCOUNTER → 2025-02-09 | Outpatient (REF) | payer MEDICARE, MEDICAID ==
[~2025-02-09] MED LIST changes: -FISH10005 PO; +FISH1CAP38 PO; +MAG-400T7 PO; +PROP80TA PO; +TIRZ5PEN; +TRAZ1TAB10 PO
== END ==
LOC: M SFHCADAM 17:09 → EEVIPCON 17:09
PROVIDERS: ATTEND Physician Assistant
DX: L02.415 Cutaneous abscess of right lower limb (principal)

== ENCOUNTER 2025-03-01 12:17 | Day surgery (SDC) | payer MEDICARE, MEDICAID ==
[~2025-03-01] VITALS: Ht 185.4 cm; Wt 117.0 kg
[~2025-03-01 12:17] MED LIST changes: +ALCOPAD25 TOP; +BLOOKIT21 XX; +HIBI4LIQ EXC; +INSU100I16 SQ; +INSUHUMDS SC; +LANC30MI XX; +LANTINJ4 SC; +LIDOCAINE 2% 100 MG/5 ML SDV (FOR ANES.) As Ordered ONE; +LINE1TAB6 PO; +MUPI2OI TOP; +PEN-308 SC; +PROP80TA PO
[2025-03-01] MEDS: INSULIN LISPRO (NovoLOG) PER UNIT SC PRN (14:15)
[2025-03-01] MEDS ORDERED: hydrALAZINE 20 MG/ML 1 ML VIAL As Ordered ONE (14:34)
[2025-03-01 14:53] VITALS: TEMP 99
[2025-03-01 15:11] VITALS: BP 144/68; O2SAT 96
== END 2025-03-01 15:30 | disposition home or self-care (01) ==
LOC: M OPP 12:17
PROVIDERS: ATTEND Internal Medicine Gastroenterology
DX: K22.89 Other specified disease of esophagus (principal); K20.90 Esophagitis, unspecified without bleeding; K44.9 Diaphragmatic hernia without obstruction or gangrene; K22.710 Barrett's esophagus with low grade dysplasia; R13.12 Dysphagia, oropharyngeal phase; G47.30 Sleep apnea, unspecified; Z88.0 Allergy status to penicillin; Z88.1 Allergy status to other antibiotic agents; Z88.2 Allergy status to sulfonamides; Z88.8 Allergy status to other drugs, medicaments and biological substances; Z91.041 Radiographic dye allergy status; Z79.4 Long term (current) use of insulin; Z79.85 Long-term (current) use of injectable non-insulin antidiabetic drugs; Z79.899 Other long term (current) drug therapy; J45.909 Unspecified asthma, uncomplicated; R56.9 Unspecified convulsions
CPT/HCPCS: 43239; 43249; 43254; 88305; J0360; J1815